=== PATIENT | female | born 1970 | race Caucasian/White ===

== ENCOUNTER 2020-08-22 12:52 | Outpatient (REF) | payer OTHER, SELFPAY ==
--- NOTE | 2020-08-22 | US_ITS ---
EXAMINATION: RIGHT and LEFT LOWER EXTREMITY VENOUS ULTRASOUND (Reflux Exam) CLINICAL INDICATION: leg pain and varicose veins. COMPARISON: None. TECHNIQUE: Color flow triplex imaging and compression Doppler was performed to evaluate both the deep and the superficial systems bilaterally. To evaluate the superficial system, the examination was performed in the upright position. Color-flow Doppler ultrasound and compression ultrasound were utilized. In addition, maneuvers were utilized to demonstrate reflux. FINDINGS: 1. DEEP VENOUS ULTRASOUND OF THE RIGHT LOWER EXTREMITY: Respiratory variation, normal compression and augmented flow are noted in the right common femoral vein as well as the right popliteal vein and there is no evidence of deep venous thrombosis at these locations. There is no evidence of reflux in the deep system in either the common femoral vein or the popliteal vein. There is no evidence of a Priest's cyst. 2. SUPERFICIAL ULTRASOUND WITH DOPPLER OF RIGHT LOWER EXTREMITY: The right great saphenous vein at the saphenofemoral junction measures 7 mm, at the mid thigh 3 mm, xviof-emw-kotr 3 mm, kzswz-npx-kqiu 3 mm, at mid calf 2 mm and at the ankle measures 1 mm. There is right greater saphenous vein reflux. There is 1.6 seconds reflux in the proximal thigh, 3.4 seconds reflux in the mid thigh and 3.4 seconds reflux in the ankle. There is a medial accessory greater saphenous vein that measures 3 mm and does not demonstrate reflux. The right small saphenous vein measures 1-2 mm and shows no reflux. There is a varicosity in the mid thigh that measures 3 mm and demonstrates 3.3 seconds reflux. There is a varicosity in the anterior mid calf that measures 3 mm and demonstrates 1.5 second reflux. 3. DEEP VENOUS ULTRASOUND OF THE LEFT LOWER EXTREMITY: Respiratory variation, normal compression and augmented flow are noted in the left common femoral vein as well as the left popliteal vein and there is no evidence of deep venous thrombosis at these locations. There is no evidence of reflux in the deep system in either the common femoral vein or the popliteal vein. . There is no evidence of a Priest's cyst. 4. SUPERFICIAL ULTRASOUND WITH DOPPLER OF LEFT LOWER EXTREMITY: Left great saphenous vein at the saphenofemoral junction measures 6 mm, at the mid thigh to mm, xueqg-lhb-mipd 3 mm, kayzx-ahl-rdtz 2 mm, at mid calf 1 mm and at the ankle measures 1 mm. There is no reflux demonstrated in the left great saphenous vein. There is a accessory lateral greater saphenous vein that measures 4 mm and does not demonstrate reflux. The left small saphenous vein measures 9 mm at the saphenofemoral popliteal junction. The remainder of the left small saphenous vein measures 3 mm and shows no reflux. There is a inspector plating in the mid calf that measures 2 mm and does not demonstrate reflux. IMPRESSION: 1. No evidence of reflux or thrombus in the common femoral veins or popliteal veins bilaterally. 2. Right greater saphenous vein reflux and reflux and varicosities in the mid thigh and anterior mid calf. No left saphenous vein reflux is seen. The left small saphenous vein is dilated at the saphenofemoral popliteal junction measuring 9 mm but does not demonstrate reflux.
== END 2020-08-22 12:53 | disposition home or self-care (01) ==
LOC: HO.US 12:52
PROVIDERS: PCP Internal Medicine; Visit Provider Surgery Vascular Surgery
DX: I83.12 Varicose veins of left lower extremity with inflammation (principal)
CPT/HCPCS: 93970

== ENCOUNTER → 2020-08-29 10:15 | Outpatient (BNVA) | payer OTHER, SELFPAY | PROVIDERS: PCP Internal Medicine; Visit Provider Surgery Vascular Surgery | DX: I83.12 Varicose veins of left lower extremity with inflammation (principal) | CPT/HCPCS: 99213 ==

== ENCOUNTER 2020-11-28 09:44 | Outpatient (REF) | payer OTHER, SELFPAY ==
[2020-11-28 12:09] LABS: Alanine Aminotransferase 21 U/L (0-31); Anion Gap 10 (12-20); Aspartate Amino Transferase 17 U/L (5-31); Blood Urea Nitrogen 18 mg/dL (9-16); Calcium 8.8 mg/dL (8.4-10.2); Carbon Dioxide 30 mmol/L (22-29); Chloride 107 mmol/L (96-108); Cholesterol 166 mg/dL; Estimated Glomerular Filt Rate > 60; Glucose Fasting 106 mg/dL (60-99); HDL Cholesterol 50 mg/dL; LDL Cholesterol Calculated 101 mg/dl; Potassium 4.3 mmol/l (3.3-5.1); Sodium 143 mmol/L (135-145); Triglycerides 75 mg/dL
== END 2020-11-28 09:45 | disposition home or self-care (01) ==
LOC: HO.HMGCLDS 09:44
PROVIDERS: PCP Internal Medicine; Visit Provider Internal Medicine
DX: I10 Essential (primary) hypertension (principal); E78.00 Pure hypercholesterolemia, unspecified
CPT/HCPCS: 36415; 80048; 80061; 84450; 84460

== ENCOUNTER 2021-08-16 08:46 | Outpatient (REF) | payer OTHER, SELFPAY ==
--- NOTE | 2021-08-16 08:56 | EEG_ITS ---
Bilateral tibial and peroneal motor studies were performed. Bilateral sural and superficial peroneal studies were performed. Tibial H reflexes were obtained and paraspinal muscles were tested with a needle. IMPRESSION: 1. Mild axonal sensory motor polyneuropathy. 2. Bilateral lower lumbar radiculopathy. MD JOSE Avendaño/NORBERTO / [id number]
== END 2021-08-16 08:47 | disposition home or self-care (01) ==
LOC: HO.NEURO 08:46
PROVIDERS: Visit Provider Internal Medicine
DX: R20.2 Paresthesia of skin (principal); M79.609 Pain in unspecified limb
CPT/HCPCS: 95886; 95911

== ENCOUNTER 2021-08-27 09:51 | Outpatient (REF) | payer OTHER, SELFPAY ==
[2021-08-27 10:56] LABS: Anion Gap 11 (12-20); Blood Urea Nitrogen 19 mg/dL (9-16); Calcium 8.9 mg/dL (8.4-10.2); Carbon Dioxide 30 mmol/L (22-29); Chloride 106 mmol/L (96-108); Estimated Glomerular Filt Rate 55; Glucose Random 94 mg/dL (60-115); Potassium 3.7 mmol/L (3.3-5.1); Sodium 143 mmol/L (135-145)
[2021-08-27 11:23] LABS: Vitamin B12 312 pg/mL (200-900)
[2021-08-28 08:36] LABS: Lyme Abs Screen <0.90 index
[2021-08-29 21:16] LABS: IgA 93 mg/dL (47-310); IgG 1232 mg/dL (600-1640); IgM 85 mg/dL (50-300)
== END 2021-08-27 09:52 | disposition home or self-care (01) ==
LOC: HO.LAB 09:51
PROVIDERS: PCP Internal Medicine; Visit Provider Psychiatry & Neurology Neurology
DX: G62.9 Polyneuropathy, unspecified (principal)
CPT/HCPCS: 36415; 80048; 82607; 82784; 86334; 86617; 86618

== ENCOUNTER 2021-12-19 14:00 | Outpatient (REF) | payer OTHER, SELFPAY ==
--- NOTE | ~2021-12-19 | XR_ITS ---
EXAMINATION: XR LEFT HIP WITH AP PELVIS CLINICAL INFORMATION: Left thigh pain. COMPARISON: None. TECHNIQUE: AP and frog-leg lateral views of the left hip and an AP view of the pelvis. FINDINGS: Enthesopathic spurring is present at the bilateral greater trochanters, left greater than right, as well as the left anterior superior iliac spine. No fracture or malalignment. Bones are osteopenic. Left hip is normal in appearance. Joint space is normal. Phleboliths are present in the central pelvis. Facet arthropathy is present at L5-S1. SI joints are normal. XR/XR hip LT w PEL1V IMPRESSION: No acute osseous or soft tissue abnormalities. Enthesopathic spurring at the left greater trochanter.
== END 2021-12-19 14:01 | disposition home or self-care (01) ==
LOC: HO.HMGCX 14:00
PROVIDERS: PCP Internal Medicine; Visit Provider Internal Medicine
DX: M79.652 Pain in left thigh (principal); R20.2 Paresthesia of skin
CPT/HCPCS: 73502

== ENCOUNTER → 2022-01-18 08:48 | Outpatient (BNVA) | payer OTHER, SELFPAY | PROVIDERS: PCP Internal Medicine; Visit Provider Physician Assistant | DX: M54.16 Radiculopathy, lumbar region (principal) | CPT/HCPCS: 99202 ==

== ENCOUNTER → 2022-01-23 09:57 | Outpatient (BNVA) | payer OTHER, SELFPAY | PROVIDERS: PCP Internal Medicine; Visit Provider Nurse Practitioner Family | DX: M47.27 Other spondylosis with radiculopathy, lumbosacral region (principal) | CPT/HCPCS: 99202 ==

== ENCOUNTER 2022-10-24 07:28 | Outpatient (REF) | payer OTHER, SELFPAY ==
--- NOTE | ~2022-10-24 | MM_ITS ---
EXAMINATION: MM SCREENING DIGITAL BREAST TOMOSYNTHESIS, BILATERAL CLINICAL INFORMATION: Screening. Asymptomatic. The lifetime risk of breast cancer based on the Tyrer-Cuzick Model is 9.9%. COMPARISON: Mammography: March 15, 2019 and studies dating back to August 13, 2011 TECHNIQUE: Digital breast tomosynthesis is performed in both the craniocaudal and mediolateral oblique views along with computer-aided detection (CAD). Synthesized 2D images are generated from the tomosynthesis. FINDINGS: There are scattered areas of fibroglandular density (ACR BI-RADS breast composition Category b). There are no significant masses, abnormal calcifications, or other abnormalities. MM/MM tomosynthesis screening BI IMPRESSION: No significant changes from prior exam. ASSESSMENT: BI-RADS 1: Negative RECOMMENDATION: Routine annual mammography screening. This patient's information was entered into a reminder system with a target due date for their next mammogram.
== END 2022-10-24 07:29 | disposition home or self-care (01) ==
LOC: HO.MAMMO 07:28
PROVIDERS: Visit Provider Internal Medicine
DX: Z12.31 Encounter for screening mammogram for malignant neoplasm of breast (principal)
CPT/HCPCS: 77063; 77067

== ENCOUNTER 2022-12-20 13:04 | Outpatient (AMB) | payer OTHER, SELFPAY ==
--- NOTE | 2022-12-20 13:12 | MHC.PC.OV ---
Vital Signs 12/20/22 13:13 Height 5 ft 3 in Weight 232 lb BMI 41.1 BP 126/74 Blood Pressure Location Lt brachial Position Sitting Pulse 63 Pulse Source Pulse Oximeter Pulse Oximetry (%) 100 Oxygen Delivery Method Room Air Intake Visit Reasons: Followup meds Intake Note: Pt is here today to f/u meds Allergies hydrochlorothiazide Allergy (Unknown, Verified 05/06/23 11:03) shortness of breath/ palpitation Medication List - Last Reconciled 12/20/22 by Lisa Dalton MD bumetanide 1 mg PO QAM cholecalciferol (vitamin D3) 25 mcg PO DAILY diphenhydramine-acetaminophen 25-500 mg (Tylenol PM Extra Strength) 1 tab PO BEDTIME PRN flu vacc [id number] 6mos up(PF) mL IM fluticasone propionate 50 mcg/actuation (Flonase Allergy Relief) 1 spray intranasal DAILY lisinopril 40 mg PO DAILY loratadine (Claritin) 10 mg PO DAILY magnesium 250 mg PO DAILY methocarbamol 750 mg PO Q8H PRN nabumetone 500 mg PO BID PRN omeprazole 40 mg PO DAILY pregabalin 75 mg PO BID propranolol ER 120 mg PO DAILY sertraline 75 mg (1.5 x 50 mg) PO DAILY Tobacco use date assessed: 12/20/22 HPI Followup meds HPI Details 52 year old lady with history of hypertension, dyslipidemia, GERD, generalized anxiety disorder, migraine, varicose veins of left lower extremity? seen by Dr. Gallo, with chronic low back pain and presence of grade 1 anterolisthesis at L4-L5 and mild degenerative changes with no nerve root impingement as noted on MRI lumbar spine, here today for follow-up. She has been seen by [facility] ?? ? Patient still complaining of intermittent episodes of aching/burning pain in left lower extremity accompanied by numbness and tingling in the said area, , not getting much improvement now from nabumetone or gabapentin, the latter she is unable to tolerate higher doses.? Had an abnormal EMG done by Dr. Marcano .? Patient would like to be referred for 2nd opinion to [facility] neurology with regards to her left leg paresthesia and pain. She was also seen by Dr Crews, started on Pregabalin , but takes it only at bedtime , and referred to Vascular surgeon , Dr Iverson at [facility] 12/17/22 , who ordered a venous [facility] Medical History Chronic low back pain Lumbar radiculopathy Enthesopathy of hip region Pain in left thigh Varicose veins of left lower extremity with pain Migraine Generalized anxiety disorder GERD (gastroesophageal reflux disease) Dyslipidemia Essential hypertension Paresthesia and pain of left extremity Surgical History Hx of colonoscopy Hx of cholecystectomy Hx of knee surgery H/O wrist surgery History of hysterectomy Family History Father Diabetes Mother Parkinson disease Daughter No problems noted. Brother No problems noted. Sister No problems noted. Social History Housing: House Patient Tobacco Use Status: Never used Tobacco e-Cigarette/Vaping Use: Never Used service: No Current occupational status: employed Cognitive needs: No Hearing needs: No Vision needs: No Questionnaire PHQ-9 Over the last 2 weeks, how often have you been bothered by any of the following problems? 1. Little interest or pleasure in doing things: not at all 2. Feeling down, depressed, or hopeless: not at all 3. Trouble falling or staying asleep, or sleeping too much: not at all 4. Feeling tired or having little energy: not at all 5. Poor appetite or overeating: not at all 6. Feeling bad about yourself - or that you are a failure or have let yourself or your family down: not at all 7. Trouble concentrating on things, such as reading the newspaper or watching television: not at all 8. Moving or speaking so slowly that other people could have noticed. Or the opposite - being so fidgety or restless that you have been moving around a lot more than usual: not at all 9. Thoughts that you would be better off or of hurting yourself in some way: not at all Total score: 0 Depression Screening Interpretation: Negative 19112 - PHQ-9 Billing: Yes Source: Developed by Drs. Joshua Glass, ShamikaTravon Miller and colleagues, with an educational keesha from [employer]. Thrive Questionnaire Declines Thrive assessment: No Date Thrive assessed: 12/19/21 I am a: Patient What is your living situation today?: I have a steady place to live Within the past 12 months, did the food you bought not last and you didn't have the money to get more?: Never true Within the past 12 months, did you worry whether your food would run out before you got money to buy more?: Never true Do you have trouble paying for medicines?: No Do you have trouble getting transportation to medical appointments?: No Do you have trouble paying your heating and electricity bill?: No Do you have trouble taking care of your child, family member or friend?: No Do you have trouble with day-to-day activities such as bathing, preparing meals, shopping, managing finances, etc.?: No Are you currently unemployed and looking for a job?: No Are you interested in more education?: No ROSA-7 AMB Questionnaire ROSA-7 Date ROSA - 7 assessed: 12/20/22 Feeling nervous, anxious, or on edge: 0 = Not at all Not being able to stop or control worryin = Not at all Worrying too much about different things: 1 = Several days Trouble relaxin = Not at all Being so restless that it is hard to sit still: 0 = Not at all Becoming easily annoyed or irritable: 0 = Not at all Feeling afraid as if something awful might happen: 0 = Not at all Total ROSA-7 score (0-4 normal; 5-9 mild; 10-14 moderate; 15-21 severe): 1 Source: Developed by Drs. Joshua Glass, Shamika Lee, Travon Bacon and colleagues, with an educational keesha from [employer]. ROSA-7 Assessment Billing ROSA-7 Assessment Tool: ROSA-7 Assessment 54477 Review of Systems Const Denies fatigue, Denies fever(s), Denies malaise and Denies weakness Eyes Denies change in vision ENT Denies dizziness, Denies post nasal drip, Denies sinus pain and Denies sore throat Card Denies chest pain, Denies syncope, Denies rapid heart rate, Denies irregular heart rhythm, Denies lightheadedness and Denies dyspnea Resp Denies chest congestion, Denies cough and Denies dyspnea GI Denies abdominal pain, Denies melena, Denies change in bowel habits, Denies heartburn and Denies nausea Reports no additional complaints Musc Reports no additional complaints, Reports as per HPI and Reports tingling Skin/Breast Denies lesions and Denies rash Neuro Reports as per HPI, Reports burning sensations (left leg), Denies dizziness, Denies syncope, Denies focal weakness, Denies restless legs, Denies seizure-like activity, Denies Sensory deficit (Neuro), Reports tingling, Reports paresthesias and Denies weakness Psych Reports no additional complaints Endo Denies fatigue Goyo/Lymph Reports no additional complaints Aller/Immun Reports no additional complaints Physical exam (Primary Care) Vital Signs: Last Vital Signs Pulse 63 12/20/22 13:13 BP 126/74 12/20/22 13:13 Pulse Ox 100 12/20/22 13:13 Oxygen Delivery Method Room Air 12/20/22 13:13 BMI result Body Mass Index 41.1 BMI Assessment/Plan discussion: High BMI High, discussed plan: lifestyle, weight reduction, dietary and physical activity Tobacco/Smoking Status: Tobacco use Status Tobacco use date assessed 12/20/22 12/20/22 13:14 Patient Tobacco Use Status Never used Tobacco 12/20/22 13:14 e-Cigarette/Vaping Use Never Used 12/20/22 13:14 PHQ-9: PHQ-9 Score PHQ-9: Total score 0 02/04/23 08:53 Depression Screening Interpretation: Negative Thrive Assessment: Date of Thrive Assessment Date Thrive assessed 12/19/21 12/20/22 13:14 Const General: comfortable, no acute distress and alert Nutritional Appearance: obese morbidly obese Orientation/consciousness: patient oriented x3 HENMT General nose exam: Normal external nose present and No nasal discharge present Face and sinus: Yes face symmetric Eyes General: appearance normal, both eyes and all related structures Neck Neck: Yes normal visual inspection, Yes full ROM, Yes no lymphadenopathy and Yes supple Thyroid: Thyroid normal Resp Effort & Inspection: normal respiratory effort and able to speak in complete sentences Auscultation: clear to auscultation bilaterally Cardio Other: S1-S2 present regular rate and rhythm GI Palpation (GI): Soft to palpation, nontender, no guarding and no masses Auscultation: normal bowel sounds Back/Spine/Pelvis Thoracic/Lumbar Spine: straight leg raise negative bilaterally and paraspinal muscle tenderness on the left in the lower lumbar Skin General skin exam: no rashes or lesions noted Neuro General: patient oriented x3, gait normal, tone normal, moves all extremities, Normal light touch and pain sensation, no focal motor deficits and CN's II-XI intact bilaterally Sensory Exam: No Sensory deficit (Neuro) Extrem General: Yes full ROM, Yes no joint enlargement, Yes no pedal edema, Yes no calf tenderness and Yes normal gait Psych Appearance: grossly normal and well kempt Mental Status: mental status grossly normal Speech and movement: Normal speech and movement present Affect: normal affect Attitude: cooperative Assessment and Plan Assessment & Plan (1) Paresthesia and pain of left extremity: Code(s): M79.609 - Pain in unspecified limb; R20.2 - Paresthesia of skin Plan: Currently being seen by [facility] see Neurology, was started on pregabalin 75 mg at bedtime by [employer]. Continue nabumetone as needed (2) Essential hypertension: Code(s): I10 - Essential (primary) hypertension Plan: Blood pressure at goal of less than 130/80. Continue with current medication. Reinforced importance of following a low sodium diet, getting regular exercise, and lowering stress levels. Coding Level of Care Code Est Pt Level 3 (75482) Diagnoses Paresthesia and pain of left extremity M79.609; R20.2 Essential hypertension I10 Additional Codes ROSA-7 Assessment Billing - ROSA-7 Assessment Tool: ROSA-7 Assessment 51355 ([id number])
[2022-12-20 13:13] VITALS: BP 126/74; PULSE 63; O2SAT 100; BMI 41.1
== END 2022-12-20 13:50 | disposition home or self-care (01) ==
LOC: HO.HMGC 13:04
PROVIDERS: PCP Internal Medicine; Visit Provider Internal Medicine
DX: M79.609 Pain in unspecified limb (principal); R20.2 Paresthesia of skin; I10 Essential (primary) hypertension
CPT/HCPCS: 99213

== ENCOUNTER 2023-09-11 09:31 | Outpatient (REF) | payer OTHER, SELFPAY ==
[2023-09-11 11:49] LABS: MANUAL DIFF FLAG NO
[2023-09-11 11:58] LABS: Basophils Percent Auto 0.4 % (0-2); Eosinophils Absolute Auto 0.1 X10*3/uL (0.0-0.4); Eosinophils Percent Auto 1.8 % (0-4); Hematocrit 36.9 % (37.0-47.0); Hemoglobin 11.8 g/dl (12.0-16.0); Lymphocytes Absolute Auto 1.4 X10*3/uL (1.2-4.9); Lymphocytes Percent Auto 26.7 % (20-40); Mean Corpuscular Hemoglobin 27.1 pg (27.0-33.0); Mean Corpuscular Volume 84.8 fL (80.0-98.0); Mean Platelet Volume 10.1 fL (9.4-12.3); Monocytes Absolute Auto 0.5 X10*3/uL (0.1-1.2); Monocytes Percent Auto 9.3 % (2-11); Neutrophils Absolute Auto 3.1 x10*3/uL (2.0-8.3); Neutrophils Percent Auto 61.8 % (45-73); Platelet Count 194 X10*3/uL (160-400); Red Blood Count 4.35 X10*6/uL (4.20-5.50); Red Cell Distribution Width 12.2 % (11.0-16.0); White Blood Count 5.1 X10*3/uL (4.8-10.8)
[2023-09-11 12:31] LABS: Alanine Aminotransferase 20 U/L (0-31); Anion Gap 13 (12-20); Aspartate Amino Transferase 20 U/L (5-31); Blood Urea Nitrogen 22 mg/dL (9-16); Calcium 9.8 mg/dL (8.4-10.2); Carbon Dioxide 29 mmol/L (22-29); Chloride 102 mmol/L (96-108); Cholesterol 245 mg/dL (<200); Estimated Glomerular Filt Rate 44; Glucose Fasting 90 mg/dL (60-99); HDL Cholesterol 44 mg/dL (>40); LDL Cholesterol Calculated 178 mg/dL (<100); Potassium 4.9 mmol/L (3.3-5.1); Sodium 139 mmol/L (135-145); Triglycerides 118 mg/dL (<150)
[2023-09-11 12:41] LABS: Folate 4.4 ng/mL (> or = 4.0); Vitamin B12 422 pg/mL (200-900)
[2023-09-11 12:47] LABS: TSH reflex Free T4 2.35 uIU/mL (0.32-4.0); Vitamin D 25-OH Total 47.2 ng/mL (>30)
== END 2023-09-11 09:32 | disposition home or self-care (01) ==
LOC: HO.HMGCLDS 09:31
PROVIDERS: PCP Internal Medicine; Visit Provider Internal Medicine
DX: Z00.01 Encounter for general adult medical examination with abnormal findings (principal); M54.16 Radiculopathy, lumbar region; F41.1 Generalized anxiety disorder; K21.9 Gastro-esophageal reflux disease without esophagitis; E78.5 Hyperlipidemia, unspecified; I10 Essential (primary) hypertension; R20.2 Paresthesia of skin; G43.909 Migraine, unspecified, not intractable, without status migrainosus; E66.9 Obesity, unspecified
CPT/HCPCS: 36415; 80048; 80061; 82306; 82607; 82746; 84443; 84450; 84460; 85025

== ENCOUNTER 2023-10-07 10:50 | Outpatient (AMB) | payer OTHER, SELFPAY ==
[2023-10-07 10:54] VITALS: BP 110/62; PULSE 63; O2SAT 100; BMI 41.3
--- NOTE | 2023-10-07 10:54 | A.OFFPC_ITS ---
Vital Signs 10/07/23 10:54 Height 5 ft 3 in Weight 233 lb 4 oz BMI 41.3 BP 110/62 Blood Pressure Location Lt brachial Position Sitting Pulse 63 Pulse Source Pulse Oximeter Pulse Oximetry (%) 100 Oxygen Delivery Method Room Air Intake Visit Reasons: left leg pain Intake Note: pt is here on going left leg pain that has been for 3 years that started as numbness in her veins in her thigh and now has gotten worse to where she can not bend her leg and is disrupting her day Allergies hydrochlorothiazide Allergy (Unknown, Verified 10/07/23 11:23) shortness of breath/ palpitation Medication List - Last Reconciled 10/07/23 by Lisa Dalton MD bumetanide 1 mg PO QAM cholecalciferol (vitamin D3) 25 mcg PO DAILY fluticasone propionate 50 mcg/actuation (Flonase Allergy Relief) 1 spray intranasal DAILY lisinopril 40 mg PO DAILY loratadine (Claritin) 10 mg PO DAILY magnesium 250 mg PO DAILY methocarbamol 750 mg PO Q8H PRN nabumetone 500 mg PO BID PRN omeprazole 40 mg PO DAILY pregabalin 75 mg PO BEDTIME propranolol ER 120 mg PO DAILY sertraline 75 mg (1.5 x 50 mg) PO DAILY Tobacco use date assessed: 10/07/23 Dental Screening Dental Screen Date: 10/07/23 Did you have a dental visit in the last 12 months?: No Did you have a dental problem in the last 6 months where you did not have access to dental care?: No Was dental information given to patient?: No HPI left leg pain HPI Details 53-year-old lady here today complaining persistent numbness and tingling in left lower extremity. MRI of lumbar spine did not show any significant nerve compression. CT angiogram showed patent vascularity in both lower extremities with no flow-limiting stenosis seen. She has been seen by vascular surgery at [facility] and she has been told that her symptoms are far more consistent with something like neuropathy done either PAD or venous insufficiency, ABIs were normal the ankle at 1 on the right and 1.0 for the l eft. Her venous Doppler duplex showed reflux in the right CPV and GSV, but not much on the left were most of her pain is. Her CTA aorta with bilateral runoff showed no significant arterial stenosis. In a day suggested referral to Neurology again for further evaluation. She has been taking pregabalin which has afforded some relief. She is also here for follow-up on results of recent labs. Which showed mild normocytic normochromic anemia, other salts unremarkable except for elevated LDL cholesterol and decreased GFR as compared to last check. [facility] Medical History (Updated 11/12/23 @ 05:50 by Lisa Dalton MD) Hypercholesterolemia Anemia Chronic low back pain Lumbar radiculopathy Enthesopathy of hip region Pain in left thigh Varicose veins of left lower extremity with pain Migraine Generalized anxiety disorder GERD (gastroesophageal reflux disease) Dyslipidemia Essential hypertension Paresthesia and pain of left extremity Surgical History Hx of colonoscopy Hx of cholecystectomy Hx of knee surgery H/O wrist surgery History of hysterectomy Family History Father Diabetes Mother Parkinson disease Daughter No problems noted. Brother No problems noted. Sister No problems noted. Social History Housing: House Patient Tobacco Use Status: Never used Tobacco e-Cigarette/Vaping Use: Never Used service: No Current occupational status: employed Cognitive needs: No Hearing needs: No Vision needs: No Questionnaire Thrive Questionnaire Date Thrive assessed: 12/19/21 ROSA-7 AMB Questionnaire ROSA-7 Date ROSA - 7 assessed: 12/20/22 Source: Developed by Drs. Joshua Glass, Shamika Lee, Travon Bacon and colleagues, with an educational keesha from [employer]. Review of Systems Const Denies fever(s), Denies malaise and Denies weakness Card Denies chest pain, Denies syncope, Denies rapid heart rate, Denies irregular heart rhythm, Denies lightheadedness and Denies dyspnea Resp Denies chest congestion, Denies cough and Denies dyspnea GI Denies abdominal pain, Denies melena, Denies change in bowel habits, Denies heartburn and Denies nausea Reports no additional complaints Musc Reports as per HPI Skin/Breast Denies lesions and Denies rash Neuro Reports as per HPI, Reports burning sensations (left leg), Denies syncope, Denies focal weakness, Denies restless legs, Denies Sensory deficit (Neuro), Reports paresthesias and Denies weakness Psych Reports no additional complaints Endo Reports no additional complaints Goyo/Lymph Reports no additional complaints Aller/Immun Reports no additional complaints Physical exam (Primary Care) Vital Signs: Last Vital Signs Pulse 63 10/07/23 10:54 BP 110/62 10/07/23 10:54 Pulse Ox 100 10/07/23 10:54 Oxygen Delivery Method Room Air 10/07/23 10:54 BMI result Body Mass Index 41.3 Tobacco/Smoking Status: Tobacco use Status Tobacco use date assessed 10/07/23 10/07/23 11:02 Patient Tobacco Use Status Never used Tobacco 10/07/23 10:54 e-Cigarette/Vaping Use Never Used 10/07/23 10:54 Thrive Assessment: Date of Thrive Assessment Date Thrive assessed 12/19/21 10/07/23 10:54 Const General: comfortable, no acute distress and alert Nutritional Appearance: obese morbidly obese Orientation/consciousness: patient oriented x3 HENMT Face and sinus: Yes face symmetric Neck Neck: Yes normal visual inspection, Yes full ROM, Yes no lymphadenopathy and Yes supple Thyroid: Thyroid normal Resp Effort & Inspection: normal respiratory effort and able to speak in complete sentences Auscultation: clear to auscultation bilaterally Cardio Other: S1-S2 present regular rate and rhythm GI Palpation (GI): Soft to palpation, nontender, no guarding and no masses Auscultation: normal bowel sounds Skin General skin exam: no rashes or lesions noted Neuro General: patient oriented x3, gait normal, tone normal, moves all extremities, Normal light touch and pain sensation, no focal motor deficits and CN's II-XI intact bilaterally Sensory Exam: No Sensory deficit (Neuro) Extrem General: Yes full ROM, Yes no joint enlargement, Yes no pedal edema, Yes no calf tenderness and Yes normal gait Results Reviewed Results Reviewed: Laboratory Tests 09/11/23 09:40 WBC 5.1 Hgb 11.8 L Hct 36.9 L MCV 84.8 MCH 27.1 RDW 12.2 Plt Count 194 Name: Angela Schultz Age/Sex: 53/F : 1970 Unit#: [id number] Attend Dr: Lisa Dalton MD Re09/11/23 Status: DEP REF Location: [facility] Disch: SPEC : [id number] CANDIDO: 09/11/23 STATUS: COMP REQ : [id number] RECD: 09/11/[address]: Lisa Dalton MD COMP: 09/11/23 ENTERED: 09/11/[address]: ORDERED: Met Prof Fast, AST, ALT, Lipid Panel, Vitamin D 25-OH, TSH Rflx Test Result Flag Reference Site Sodium 139 135-145 mmol/L Potassium 4.9 # 3.3-5.1 mmol/L CL 102 96-108 mmol/L CO2 29 22-29 mmol/L Gap 13 12-20 BUN 22 H 9-16 mg/dL Creat 1.28 0.5-1.4 mg/dL EGFR 44 NOTE: For -[place] individuals, multiply the result by 1.210. Chronic Kidney Disease: Estimated GFR < 60 mL/m in/1.73m2 Severe Kidney Disease: Estimated GFR < 15 mL/min/1.73m2 FBS 90 60-99 mg/dL CA 9.8 # 8.4-10.2 mg/dL AST (GOT) 20 5-31 U/L ALT (GPT) 20 0-31 U/L Triglyceride 118 <150 mg/dL Desirable Triglyceride: less than 150 mg/dL Borderline High Triglyceride 150-199 mg/dL High Triglyceride: 200-499 mg/dL Very High Triglyceride: greater than or equal to 5OO mg/dL Cholesterol 245 H <200 mg/dL Desirable Cholesterol: less than 200 mg/dL Borderline High Cholesterol: 200-239 mg/dL High Cholesterol: greater than 239 mg/dL LDL Calculated 178 H <100 mg/dL Desirable LDL: less than 100 mg/dL Near Optimal/Above Optimal LDL: 110-129 mg/dL Borderline High LDL: 130-159 mg/dL High LDL: 160-189 mg/dL Very High LDL: greater than or equal to 190 mg/dL HDL 44 >40 mg/dL Desirable HDL: greater than 40 mg/dL Note: This HDL assay may give artificially low results in patients with liver disease. Vit D 25-OH Tot 47.2 >30 ng/mL Health Based Reference Values* < 20 ng/mL Deficient 20-30 ng/mL Insufficient > 30 ng/mL Sufficient *Holick MF. N Engl J Med. 2007;[id number]:266-280 Care must be taken in interpreting Vitamin D results from different laboratories and methodologies. Published data demonstrated that results from patients undergoing hemodialysis may show a negative bias when tested with various automated 25-OH vitamin D assays when compared to LC-MS/MS. When testing samples from patients whose predominant form of Vitamin D is Vitamin D2, such as patients receiving Vitamin D2 supplementation, results that are subtherapeutic should be confirmed with another method such as LC-MS/MS. TSH 2.35 0.32-4.0 uIU/mL Assessment and Plan Assessment & Plan (1) Anemia: Code(s): D64.9 - Anemia, unspecified Qualifiers: Anemia type: unspecified type Qualified Code(s): D64.9 - Anemia, unspecified Plan: Started on ferrous fumarate 325 mg per tablet to take once a day for the next 3 months. (2) Paresthesia and pain of left extremity: Code(s): M79.609 - Pain in unspecified limb; R20.2 - Paresthesia of skin Plan: Seen already by vascular surgery and had diagnostic testing done which did not show any evidence of PAD or PVD, Continue pregabalin, patient already has been referred to [facility] neurology for further evaluation, awaiting appointment. (3) Hypercholesterolemia: Code(s): E78.00 - Pure hypercholesterolemia, unspecified Plan: Started on rosuvastatin 5 mg per tablet to take 1 tablet every other day, reinforced importance of following a low-cholesterol diet. Will repeat another fasting lipid panel total CK and liver enzymes in 3 month Orders: Orders Lipid Panel 3 Months E78.00 - Pure hypercholesterolemia, unspecified Aspartate Amino Transferase 3 Months E78.00 - Pure hypercholesterolemia, unspecified Alanine Aminotransferase 3 Months E78.00 - Pure hypercholesterolemia, unspecified Creatine Kinase Total 3 Months E78.00 - Pure hypercholesterolemia, unspecified Medications: New ferrous fumarate 324 mg PO DAILY 90 tabs 1RF D64.9 - Anemia, unspecified rosuvastatin 5 mg PO Q2D 45 tabs 1RF 3 months Changed From pregabalin 75 mg PO BEDTIME 30 caps 5RF M79.609 - Pain in unspecified limb, R20.2 - Paresthesia of skin To pregabalin 75 mg PO Q12H 60 caps 5RF M79.609 - Pain in unspecified limb, R20.2 - Paresthesia of skin Discontinued nabumetone Discontinued Reason: Doctor's Order 500 mg PO BID PRN 40 tabs 1RF pain Coding Level of Care Code Est Pt Level 4 (98568) Diagnoses Anemia, unspecified type D64.9 Anemia type: unspecified type Paresthesia and pain of left extremity M79.609; R20.2 Hypercholesterolemia E78.00
== END 2023-10-07 15:21 | disposition home or self-care (01) ==
PROVIDERS: PCP Internal Medicine; Visit Provider Internal Medicine
DX: D64.9 Anemia, unspecified (principal); M79.609 Pain in unspecified limb; R20.2 Paresthesia of skin; E78.00 Pure hypercholesterolemia, unspecified
CPT/HCPCS: 99214

== ENCOUNTER 2023-10-30 07:29 | Outpatient (REF) | payer OTHER, SELFPAY | END 2023-10-30 07:30 | disposition home or self-care (01) | LOC: HO.MAMMO 07:29 | PROVIDERS: PCP Internal Medicine; Visit Provider Internal Medicine | DX: Z12.31 Encounter for screening mammogram for malignant neoplasm of breast (principal) | CPT/HCPCS: 77063; 77067 ==

== ENCOUNTER → 2023-10-30 07:45 | Outpatient (BNV) | payer OTHER, SELFPAY | PROVIDERS: PCP Internal Medicine; Visit Provider Radiology Diagnostic Radiology | DX: Z12.31 Encounter for screening mammogram for malignant neoplasm of breast (principal) | CPT/HCPCS: 77063; 77067 ==

== ENCOUNTER 2024-02-13 09:28 | Outpatient (REF) | payer OTHER, SELFPAY ==
[2024-02-13 11:12] LABS: Alanine Aminotransferase 14 U/L (0-31); Aspartate Amino Transferase 16 U/L (5-31); Cholesterol 172 mg/dL (<200); HDL Cholesterol 43 mg/dL (>40); LDL Cholesterol Calculated 112 mg/dL (<100); Triglycerides 85 mg/dL (<150)
== END 2024-02-13 09:29 | disposition home or self-care (01) ==
LOC: HO.HMGCLDS 09:28
PROVIDERS: PCP Internal Medicine; Visit Provider Internal Medicine
DX: E78.00 Pure hypercholesterolemia, unspecified (principal)
CPT/HCPCS: 36415; 80061; 82550; 84450; 84460

== ENCOUNTER 2024-02-18 08:10 | Outpatient (AMB) | payer OTHER, SELFPAY ==
[2024-02-18 08:18] VITALS: BP 100/72; PULSE 64; O2SAT 100; BMI 42.0
--- NOTE | 2024-02-18 08:18 | MHC.PC.OV ---
Vital Signs 02/18/24 08:18 Height 5 ft 3 in Weight 237 lb BMI 42.0 BP 100/72 Blood Pressure Location Rt brachial Position Sitting Pulse 64 Pulse Source Pulse Oximeter Pulse Oximetry (%) 100 Oxygen Delivery Method Room Air Intake Visit Reasons: Annual PE Intake Note: Pt is here today for her PE: Last mammogram 10/30/23, colonoscopy 04/06/19: Hx of total hysterectomy Allergies hydrochlorothiazide Allergy (Unknown, Verified 02/18/24 08:46) shortness of breath/ palpitation Medication List - Last Reconciled 02/18/24 by Lisa Dalton MD bumetanide 1 mg PO QAM cholecalciferol (vitamin D3) 25 mcg PO DAILY ferrous fumarate 324 mg PO DAILY fluticasone propionate 50 mcg/actuation (Flonase Allergy Relief) 1 spray intranasal DAILY lisinopril 40 mg PO DAILY loratadine (Claritin) 10 mg PO DAILY magnesium 250 mg PO DAILY omeprazole 40 mg PO DAILY pregabalin 75 mg PO Q12H propranolol ER 120 mg PO DAILY rosuvastatin 5 mg PO Q2D 3 months sertraline 75 mg (1.5 x 50 mg) PO DAILY Tobacco use date assessed: 02/18/24 Dental Screening Dental Screen Date: 02/18/24 Did you have a dental visit in the last 12 months?: No Was dental information given to patient?: Patient declined HPI Annual PE HPI Details 53-year-old lady here today for her physical exam. She has hypertension, currently stable controlled on present treatment. Has hyperlipidemia , started on rosuvastatin 5 mg taken every other day on last visit with recent fasting lipids now within normal limits. She had hysterectomy and salpingectomy with right oophorectomy in 2011 due to endometriosis and ovarian cyst. She is up-to-date with her screening mammogram. Had a screening colonoscopy done by Dr. Gomez in 2019 with removal of a hyperplastic polyp. She is up-to-date with all her vaccinations but does not want to get the Shingrix vaccine at present time. Has numbness and burning pain in both legs, states that she feels like she is walking on glass , and has been having neck tightness and finger twitching, started insidiously in 2019 and progressively getting worse. She has also been having headaches and disturbed sleep due to the pain . She had normal EMG twice in 2020 in 2022. She has been tried on gabapentin, but had to stop taking the medication as it was too sedating. She is currently being seen at [facility] neurology, sees Dr. Tirado who started her on pregabalin 75 mg 1 tablet twice a day with some improvement noted. [facility] Medical History (Updated 02/19/24 @ 00:21 by Lisa Dalton MD) Peripheral neuropathy Depression Anemia Lumbar radiculopathy Varicose veins of left lower extremity with pain Migraine GERD (gastroesophageal reflux disease) Dyslipidemia Essential hypertension Paresthesia and pain of left extremity Surgical History Hx of colonoscopy Hx of cholecystectomy Hx of knee surgery H/O wrist surgery History of hysterectomy Family History Father Diabetes Mother Parkinson disease Daughter No problems noted. Brother No problems noted. Sister No problems noted. Social History Housing: House Patient Tobacco Use Status: Never used Tobacco e-Cigarette/Vaping Use: Never Used service: No Current occupational status: employed Cognitive needs: No Hearing needs: No Vision needs: Yes Female Reproductive History Menstrual Menopause type: surgical Questionnaire PHQ-9 Over the last 2 weeks, how often have you been bothered by any of the following problems? 1. Little interest or pleasure in doing things: more than half the days 2. Feeling down, depressed, or hopeless: not at all 3. Trouble falling or staying asleep, or sleeping too much: not at all 4. Feeling tired or having little energy: more than half the days 5. Poor appetite or overeating: not at all 6. Feeling bad about yourself - or that you are a failure or have let yourself or your family down: not at all 7. Trouble concentrating on things, such as reading the newspaper or watching television: not at all 8. Moving or speaking so slowly that other people could have noticed. Or the opposite - being so fidgety or restless that you have been moving around a lot more than usual: several days 9. Thoughts that you would be better off or of hurting yourself in some way: not at all Total score: 5 Depression Screening Interpretation: Positive Depression Screening Follow-up: Existing condition and In treatment Depression Screening Done: Yes 40368 - PHQ-9 Billing: Yes Source: Developed by Drs. Joshua Glass, Shamika Lee, Travon Bacon and colleagues, with an educational keesha from [email or web address]. Thrive Questionnaire Date Thrive assessed: 02/18/24 I am a: Patient What is your living situation today?: I have a steady place to live Within the past 12 months, did the food you bought not last and you didn't have the money to get more?: Never true Within the past 12 months, did you worry whether your food would run out before you got money to buy more?: Never true Do you have trouble paying for medicines?: No Do you have trouble getting transportation to medical appointments?: No Do you have trouble paying your heating and electricity bill?: No Do you have trouble taking care of your child, family member or friend?: No Do you have trouble with day-to-day activities such as bathing, preparing meals, shopping, managing finances, etc.?: No Are you currently unemployed and looking for a job?: No Are you interested in more education?: No THRIVE Score: 0 AUDIT C Alcohol Use Questionnaire (AUDIT-C) 1. How often do you have a drink containing alcohol?: Never Total Score: 0 ROSA-7 AMB Questionnaire ROSA-7 Date ROSA - 7 assessed: 02/18/24 Feeling nervous, anxious, or on edge: 1 = Several days Not being able to stop or control worryin = Not at all Worrying too much about different things: 0 = Not at all Trouble relaxin = Several days Being so restless that it is hard to sit still: 0 = Not at all Becoming easily annoyed or irritable: 1 = Several days Feeling afraid as if something awful might happen: 0 = Not at all Total ROSA-7 score (0-4 normal; 5-9 mild; 10-14 moderate; 15-21 severe): 3 Source: Developed by Drs. Joshua Glass, Shamika Lee, Travon Bacon and colleagues, with an educational keesha from [email or web address]. ROSA-7 Assessment Billing ROSA-7 Assessment Tool: ROSA-7 Assessment 25139 Review of Systems Const Denies fever(s) and Denies weakness Eyes Denies change in vision ENT Denies dizziness Card Denies chest pain, Denies rapid heart rate, Denies irregular heart rhythm, Denies lightheadedness and Denies dyspnea Resp Denies chest congestion, Denies cough and Denies dyspnea GI Denies abdominal pain, Denies melena, Denies change in bowel habits, Denies heartburn and Denies nausea Reports no additional complaints Musc Reports as per HPI and Denies abnormal gait Skin/Breast Denies lesions and Denies rash Neuro Reports as per HPI, Denies abnormal gait, Reports burning sensations (in lower extremities ), Denies dizziness, Denies focal weakness, Denies restless legs, Denies seizure-like activity, Reports Sensory deficit (Neuro) (in toes of both feet), Denies tremor(s) and Denies weakness Psych Reports no additional complaints Endo Reports no additional complaints Goyo/Lymph Reports no additional complaints Aller/Immun Reports no additional complaints Physical exam (Primary Care) Vital Signs: Last Vital Signs Pulse 64 02/18/24 08:18 BP 100/72 02/18/24 08:18 Pulse Ox 100 02/18/24 08:18 Oxygen Delivery Method Room Air 02/18/24 08:18 BMI result Body Mass Index 42.0 Tobacco/Smoking Status: Tobacco use Status Tobacco use date assessed 02/18/24 02/18/24 08:21 Patient Tobacco Use Status Never used Tobacco 02/18/24 08:21 e-Cigarette/Vaping Use Never Used 02/18/24 08:21 PHQ-9: PHQ-9 Score PHQ-9: Total score 5 02/18/24 23:49 Depression Screening Interpretation: Positive Depression Screening Follow-up: Existing condition and In treatment Thrive Assessment: Date of Thrive Assessment Date Thrive assessed 02/18/24 02/18/24 08:26 Const General: no acute distress and alert Nutritional Appearance: obese morbidly obese Orientation/consciousness: patient oriented x3 HENMT Face and sinus: Yes face symmetric Eyes General: appearance normal, both eyes and all related structures Neck Neck: Yes normal visual inspection, Yes full ROM, Yes no lymphadenopathy and Yes supple Thyroid: Thyroid normal Chest Breast/axilla palpation: normal palpation of the breasts Resp Effort & Inspection: normal respiratory effort Auscultation: clear to auscultation bilaterally Cardio Other: S1-S2 present regular rate and rhythm GI Palpation (GI): Soft to palpation, nontender, no guarding and no masses Auscultation: normal bowel sounds General: Yes no CVA tenderness and Yes deferred Back/Spine/Pelvis Back: no CVA tenderness and No back tenderness Skin General skin exam: no rashes or lesions noted Neuro General: patient oriented x3, tone normal, moves all extremities, no focal motor deficits and CN's II-XI intact bilaterally Sensory Exam: Sensory deficit (Neuro) (in toes of both feet) Extrem General: Yes full ROM, Yes no joint enlargement, Yes no pedal edema, Yes no calf tenderness and Yes normal gait Psych Appearance: grossly normal and well kempt Mental Status: mental status grossly normal Speech and movement: Normal speech and movement present Affect: normal affect Results Reviewed Results Reviewed: Laboratory Tests 09/11/23 09:40 Fasting Glucose 90 TSH 2.35 Name: Angela Schultz Age/Sex: 53/F : 1970 Unit#: [id number] Attend Dr: Lisa Dalton MD Re02/13/24 Status: DEP REF Location: [facility] Disch: SPEC : [id number] CANDIDO: 02/13/24 STATUS: COMP REQ : [id number] RECD: 02/13/24-[address]: Lisa Dalton MD COMP: 02/13/24 ENTERED: 02/13/24-[address]: ORDERED: AST, ALT, CK Total, Lipid Panel Test Result Flag Reference AST (GOT) 16 5-31 U/L ALT (GPT) 14 0-31 U/L CK Total 106 26-140 U/L Triglyceride 85 <150 mg/dL Desirable Triglyceride: less than 150 mg/dL Borderline High Triglyceride 150-199 mg/dL High Triglyceride: 200-499 mg/dL Very High Triglyceride: greater than or equal to 5OO mg/dL Cholesterol 172 <200 mg/dL Desirable Cholesterol: less than 200 mg/dL Borderline High Cholesterol: 200-239 mg/dL High Cholesterol: greater than 239 mg/dL LDL Calculated 112 H <100 mg/dL Desirable LDL: less than 100 mg/dL Near Optimal/Above Optimal LDL: 110-129 mg/dL Borderline High LDL: 130-159 mg/dL High LDL: 160-189 mg/dL Very High LDL: greater than or equal to 190 mg/dL HDL 43 >40 mg/dL Desirable HDL: greater than 40 mg/dL Note: This HDL assay may give artificially low results in patients with liver disease. Assessment and Plan Assessment & Plan (1) Annual visit for general adult medical examination with abnormal findings: Code(s): Z00.01 - Encounter for general adult medical examination with abnormal findings Plan: Reviewed recent fasting labs patient.. Recommended dental visit every 6 months and regular eye exams, at least every 2 years. Take adequate calcium in diet and vitamin-D 3 at 2000 IU per cap once a day. Weight loss strongly recommended. Currently up-to-date with her yearly mammogram. Up-to-date with her screening colonoscopy, due again in 2028 . Up-to-date with her COVID vaccination including booster, gets yearly flu shots and is up-to-date with her Tdap. Has not yet had her shingles vaccine (2) Peripheral neuropathy: Code(s): G62.9 - Polyneuropathy, unspecified Qualifiers: Peripheral neuropathy type: polyneuropathy, unspecified Qualified Code(s): G62.9 - Polyneuropathy, unspecified Plan: Currently followed by [facility] neurology, and was started on pregabalin and referred for physical therapy. Will check Lyme titer, Ehrlichia anaplasma antibody panel (3) Essential hypertension: Code(s): I10 - Essential (primary) hypertension Plan: Blood pressure at goal of less than 130/80. Continue with current medication. Reinforced importance of following a low sodium diet, getting regular exercise, and lowering stress levels. Basic metabolic panel ordered (4) Dyslipidemia: Code(s): E78.5 - Hyperlipidemia, unspecified Plan: Reviewed recent fasting lipid profile with patient with improvement in her lipid panel compared to last check . Continue with rosuvastatin 5 mg every other day , in addition to adherence to low-cholesterol diet and regular exercise, at least 30 minutes 3 to 4 times a week. Advised patient to make healthy food choices, eat more fruits, vegetables, whole grains, wild caught fish and low-fat dairy. Limit amount of meat and fried or fatty food products, as well as processed foods and fast foods. Follow-up scheduled with repeat fasting lipid panel in 6 months. (5) Depression: Code(s): F32.A - Depression, unspecified Qualifiers: Depression Type: major depressive disorder Major depression recurrence: recurrent Active/Remission status: remission status unspecified Qualified Code(s): F33.9 - Major depressive disorder, recurrent, unspecified Plan: Continue with sertraline 75 mg daily Orders: Orders Lyme IgG/IgM w/reflex to WB 02/18/24 M76.899 - Other specified enthesopathies of unspecified lower limb, excluding foot, M79.609 - Pain in unspecified limb, R20.2 - Paresthesia of skin, R53.83 - Other fatigue Basic Metabolic Panel Fasting 02/18/24 E89.40 - Asymptomatic postprocedural ovarian failure, I10 - Essential (primary) hypertension Vitamin D 25-OH Total 02/18/24 E89.40 - Asymptomatic postprocedural ovarian failure Ehrlichia Anaplasma Ab Panel 02/18/24 M76.899 - Other specified enthesopathies of unspecified lower limb, excluding foot, M79.609 - Pain in unspecified limb, R20.2 - Paresthesia of skin, R53.83 - Other fatigue Coding Level of Care Code Est Pt Prev Care 40-64y(07125) Diagnoses Annual visit for general adult medical examination with abnormal findings Z00.01 Peripheral polyneuropathy G62.9 Peripheral neuropathy type: polyneuropathy, unspecified Essential hypertension I10 Dyslipidemia E78.5 Recurrent major depressive disorder, remission status unspecified F33.9 Depression Type: major depressive disorder Major depression recurrence: recurrent Active/Remission status: remission status unspecified Additional Codes ROSA-7 Assessment Billing - ROSA-7 Assessment Tool: ROSA-7 Assessment 88673 ([id number])
== END 2024-02-18 08:56 | disposition home or self-care (01) ==
PROVIDERS: PCP Internal Medicine; Visit Provider Internal Medicine
DX: Z00.00 Encounter for general adult medical examination without abnormal findings (principal); F33.9 Major depressive disorder, recurrent, unspecified; G62.9 Polyneuropathy, unspecified; I10 Essential (primary) hypertension; E78.5 Hyperlipidemia, unspecified
CPT/HCPCS: 99396

== ENCOUNTER 2024-02-18 08:58 | Outpatient (REF) | payer OTHER, SELFPAY ==
[2024-02-18 11:09] LABS: Anion Gap 13 (12-20); Blood Urea Nitrogen 47 mg/dL (9-16); Calcium 9.9 mg/dL (8.4-10.2); Carbon Dioxide 29 mmol/L (22-29); Chloride 102 mmol/L (96-108); Estimated Glomerular Filt Rate 26; Glucose Fasting 97 mg/dL (60-99); Potassium 4.9 mmol/L (3.3-5.1); Sodium 139 mmol/L (135-145)
[2024-02-18 11:15] LABS: Vitamin D 25-OH Total 53.1 ng/mL (>30)
[2024-02-19 19:48] LABS: Lyme Abs Screen <0.90 index
[2024-02-23 12:39] LABS: A. Phagocytophilum Ab IgG <1:64 (<1:64); A. Phagocytophilum Ab IgM <1:20 (<1:20); E. Chaffeensis Ab IgG <1:64 (<1:64); E. Chaffeensis Ab IgM <1:20 (<1:20)
== END 2024-02-18 08:59 | disposition home or self-care (01) ==
LOC: HO.HMGCLDS 08:58
PROVIDERS: PCP Internal Medicine; Visit Provider Internal Medicine
DX: M79.609 Pain in unspecified limb (principal); I10 Essential (primary) hypertension; R20.2 Paresthesia of skin; M76.899 Other specified enthesopathies of unspecified lower limb, excluding foot; R53.83 Other fatigue; E89.40 Asymptomatic postprocedural ovarian failure
CPT/HCPCS: 36415; 80048; 82306; 86617; 86618; 86666

== ENCOUNTER 2024-02-20 09:54 | Outpatient (AMB) | payer OTHER, SELFPAY ==
[2024-02-20 09:56] VITALS: BP 100/62; PULSE 50; O2SAT 92; BMI 41.8
--- NOTE | 2024-02-20 09:56 | HO.NEPHOV_ITS ---
Vital Signs 02/20/24 09:56 Height 5 ft 3 in Weight 236 lb 4 oz BMI 41.8 BP 100/62 Blood Pressure Location Rt brachial Position Sitting Pulse 50 Pulse Source Pulse Oximeter Pulse Oximetry (%) 92 Oxygen Delivery Method Room Air Intake Visit Reasons: Progressive decline in renal function/ Confirmed [employer] Required: No Accompanied by: Daughter Allergies hydrochlorothiazide Allergy (Unknown, Verified 02/20/24 10:00) shortness of breath/ palpitation HPI Comments Details: I had the privilege of seeing Angela in consultation for her recent FADY. She has hypertension and has been on ACEI and HCTZ. She has dyslipidemia and is on statins. She has been having persistent numbness and tingling in left lower extremity for which she has undergone MRI of lumbar spine, CT angiogram of lower extremities as well as EMG. Her CTA aorta showed no significant arterial stenosis. She is not a diabetic. She has no edema, uncontrolled BP, hematuria, SOB, PND, orthopnea, orthostasis, epistaxis, photosensitivity, new skin rashes, new bone/back pain, excess NSAID intake. She has had no recent antibiotics, sore throat or sinusitis. She denied any H/O CAD, CVA, CHF, BRIANA. Her BP has been running low normal. Recently her serum creatinine went up to 1.98 [facility] Medical History (Updated 02/20/24 @ 10:36 by Patrick Paz MD) Peripheral neuropathy Depression Anemia Lumbar radiculopathy Varicose veins of left lower extremity with pain Migraine GERD (gastroesophageal reflux disease) Dyslipidemia Essential hypertension Paresthesia and pain of left extremity Surgical History Hx of colonoscopy Hx of cholecystectomy Hx of knee surgery H/O wrist surgery History of hysterectomy Family History Father Diabetes Mother Parkinson disease Daughter No problems noted. Brother No problems noted. Sister No problems noted. Social History Housing: House Patient Tobacco Use Status: Never used Tobacco e-Cigarette/Vaping Use: Never Used service: No Current occupational status: employed Cognitive needs: No Hearing needs: No Vision needs: Yes Physical Exam Vital Signs: Last Vital Signs Pulse 50 04/05/24 09:56 BP 100/62 02/20/24 09:56 Pulse Ox 92 02/20/24 09:56 Oxygen Delivery Method Room Air 02/20/24 09:56 BMI result Body Mass Index 41.8 Const General: comfortable and no acute distress Orientation/consciousness: patient oriented x3 HEENT Head: Yes normocephalic Mouth: Normal oral and palatal mucosa present Eyes EOM: EOMs intact bilaterally Neck Neck: Yes supple Resp Auscultation: clear to auscultation bilaterally Cardio Jugular venous distension: no JVD Rate: regular rate GI Palpation (GI): Soft to palpation Auscultation: normal bowel sounds General: Yes no CVA tenderness Back/Spine/Pelvis Back: no CVA tenderness Skin General skin exam: no rashes or lesions noted Neuro General: patient oriented x3 and moves all extremities Extrem General: Yes no pedal edema Assessment & Plan Assessment & Plan (1) FADY (acute kidney injury): Code(s): N17.9 - Acute kidney failure, unspecified Category: Medical (2) Essential hypertension: Code(s): I10 - Essential (primary) hypertension Category: Medical Plan Angela has FADY likely from compromise in renal perfusion with resultant tubular injury. Her urine output is good. It unlikely that she has a GN/AIN causing FADY, though possible. I ordered extensive work up including imaging studies as well as Urine & blood work. I discontinued her ACEI and HCTZ and asked her to maintain good hydration. She was encouraged to stay away from NSAID's. All these have been discussed in detail. Time spent retrieving data, documentation and patient visit 49 minutes. All questions answered. Further management is pending evolving data Orders: Orders Myeloperoxidase Antibody 02/20/24 N17.9 - Acute kidney failure, unspecified Anti Glomerular Basement Memb 02/20/24 N17.9 - Acute kidney failure, unspecified Immunofixation Pnl, Serum 02/20/24 N17.9 - Acute kidney failure, unspecified Calcium 02/20/24 N17.9 - Acute kidney failure, unspecified Complete Blood Count Auto Diff 02/20/24 N17.9 - Acute kidney failure, unspecified Prothrombin Time INR 02/20/24 N17.9 - Acute kidney failure, unspecified UA and rflx microscopic 02/20/24 N17.9 - Acute kidney failure, unspecified Protein Creatinine Ratio, Ur 02/20/24 N17.9 - Acute kidney failure, unspecified US renal BI 02/20/24 N17.9 - Acute kidney failure, unspecified US renal doppler 02/20/24 N17.9 - Acute kidney failure, unspecified Anti DNA DS Antibody 02/20/24 N17.9 - Acute kidney failure, unspecified Proteinase 3 PR3 Antibodies 02/20/24 N17.9 - Acute kidney failure, unspecified Complement C4 02/20/24 N17.9 - Acute kidney failure, unspecified Complement C3 02/20/24 N17.9 - Acute kidney failure, unspecified Phospholipase A2 Receptor Pnl 02/20/24 N17.9 - Acute kidney failure, unspecified Hepatitis B Surface Antigen 02/20/24 N17.9 - Acute kidney failure, unspecified Hepatitis B Core Antibody 02/20/24 N17.9 - Acute kidney failure, unspecified Electrolytes 02/20/24 N17.9 - Acute kidney failure, unspecified Blood Urea Nitrogen 02/20/24 N17.9 - Acute kidney failure, unspecified Creatinine 02/20/24 N17.9 - Acute kidney failure, unspecified Immunofixation, Random Urine 02/20/24 N17.9 - Acute kidney failure, unspecified Medications: Discontinued lisinopril Discontinued Reason: Doctor's Order 40 mg PO DAILY 90 tabs 1RF bumetanide Discontinued Reason: Doctor's Order 1 mg PO QAM 90 caps 1RF Coding Level of Care Code New Pt Level 4 (01264) Diagnoses FADY (acute kidney injury) N17.9 Essential hypertension I10
== END 2024-02-20 10:46 | disposition home or self-care (01) ==
PROVIDERS: PCP Internal Medicine; Referring Provider Internal Medicine; Visit Provider Internal Medicine Nephrology
DX: N17.9 Acute kidney failure, unspecified (principal); I10 Essential (primary) hypertension
CPT/HCPCS: 99204

== ENCOUNTER → 2024-02-20 09:54 | Outpatient (BNVA) | payer OTHER, SELFPAY | PROVIDERS: PCP Internal Medicine; Referring Provider Internal Medicine; Visit Provider Internal Medicine Nephrology | DX: N17.9 Acute kidney failure, unspecified (principal); I10 Essential (primary) hypertension | CPT/HCPCS: 99202 ==

== ENCOUNTER 2024-03-11 08:18 | Outpatient (REF) | payer OTHER, SELFPAY ==
--- NOTE | ~2024-03-11 | US_ITS ---
EXAMINATION: ULTRASOUND RENAL WITH DOPPLER CLINICAL INFORMATION: Acute kidney failure COMPARISON: None. TECHNIQUE: Real-time grayscale, color Doppler, and duplex Doppler evaluation of the kidneys and renal vasculature was performed. FINDINGS: Evaluation is suboptimal due to body habitus and overlying bowel gas/rib shadowing. RENAL MEASUREMENTS: Right: 9.8 x 4.0 x 4.8 cm (Sag x AP x TV) Left: 10.1 x 4.7 x 5.1 cm (Sag x AP x TV) The renal parenchyma appears minimally increased in echogenicity consistent with medical renal disease. There is a anechoic simple cyst in the upper pole the right kidney measuring 2.3 x 2.2 x 1.9 cm. No hydronephrosis or nephrolithiasis. No follow-up indicated. DOPPLER INTERROGATION: Aorta: 96.7 cm/sec Right Main Renal Artery: Proximal: 116 cm/sec Mid: 102 cm/sec Distal: 183 cm/sec Right Segmental Renal Artery Resistive Indices: Upper: 0.72 Mid: 0.62 Lower: 0.71 Left Main Renal Artery: Proximal: 97.8 cm/sec Mid: 197 cm/sec Distal: 182 cm/sec Left Segmental Renal Artery Resistive Indices: Upper: 0.79 Mid: 0.74 Lower: 0.62 The bilateral renal veins are patent. US/US renal doppler IMPRESSION: Suboptimal evaluation due to body habitus and overlying shadowing. Mildly elevated velocity seen in the bilateral renal arteries which could represent less than 60% stenosis. Minimally increased renal parenchymal echogenicity most consistent with medical renal disease. Right renal cyst.
--- NOTE | ~2024-03-11 | US_ITS ---
EXAMINATION: ULTRASOUND RENAL WITH DOPPLER CLINICAL INFORMATION: Acute kidney failure COMPARISON: None. TECHNIQUE: Real-time grayscale, color Doppler, and duplex Doppler evaluation of the kidneys and renal vasculature was performed. FINDINGS: Evaluation is suboptimal due to body habitus and overlying bowel gas/rib shadowing. RENAL MEASUREMENTS: Right: 9.8 x 4.0 x 4.8 cm (Sag x AP x TV) Left: 10.1 x 4.7 x 5.1 cm (Sag x AP x TV) The renal parenchyma appears minimally increased in echogenicity consistent with medical renal disease. There is a anechoic simple cyst in the upper pole the right kidney measuring 2.3 x 2.2 x 1.9 cm. No hydronephrosis or nephrolithiasis. No follow-up indicated. DOPPLER INTERROGATION: Aorta: 96.7 cm/sec Right Main Renal Artery: Proximal: 116 cm/sec Mid: 102 cm/sec Distal: 183 cm/sec Right Segmental Renal Artery Resistive Indices: Upper: 0.72 Mid: 0.62 Lower: 0.71 Left Main Renal Artery: Proximal: 97.8 cm/sec Mid: 197 cm/sec Distal: 182 cm/sec Left Segmental Renal Artery Resistive Indices: Upper: 0.79 Mid: 0.74 Lower: 0.62 The bilateral renal veins are patent. US/US renal BI IMPRESSION: Suboptimal evaluation due to body habitus and overlying shadowing. Mildly elevated velocity seen in the bilateral renal arteries which could represent less than 60% stenosis. Minimally increased renal parenchymal echogenicity most consistent with medical renal disease. Right renal cyst.
[2024-03-11 10:23] LABS: MANUAL DIFF FLAG NO
[2024-03-11 10:35] LABS: Appearance Urine Clear; Color Urine Yellow; Glucose Urine UA Negative (Negative); Leukocyte Esterase Urine Small (1+) (Negative); Nitrite Urine Negative (Negative); PH 6.5 (5.0-9.0); UMIC TRIGGER UA YES; Urine Blood Negative (Negative); Urine Ketones Negative (Negative); Urine Protein Negative (Neg-Trace)
[2024-03-11 10:41] LABS: INTERNATIONAL NORM RATIO 0.9 (0.9-1.1); Prothrombin Time 11.4 SEC (11.1-13.3)
[2024-03-11 10:45] LABS: Bacteria Urine None Seen (None Seen); Hyaline Casts Urine 0-2 /LPF (0-2); RBC Urine 0-2 /HPF (0-2); Squamous Epithelial Cell Urine 0-2 /HPF (0-2); WBC Urine 0-5 /HPF (0-5)
[2024-03-11 10:49] LABS: Eosinophils Absolute Auto 0.1 X10*3/uL (0.0-0.4); Eosinophils Percent Auto 1.7 % (0-4); Hematocrit 35.2 % (37.0-47.0); Hemoglobin 11.4 g/dl (12.0-16.0); Imm Gran Abs Auto 0.02 X10*3/uL (0.00-0.03); Imm Gran Pct Auto 0.5 % (0.0-0.4); Lymphocytes Absolute Auto 1.1 X10*3/uL (1.2-4.9); Lymphocytes Percent Auto 26.7 % (20-40); Mean Corpuscular HGB Conc 32.4 g/dl (31.0-35.0); Mean Corpuscular Hemoglobin 28.6 pg (27.0-33.0); Mean Corpuscular Volume 88.4 fL (80.0-98.0); Mean Platelet Volume 9.9 fL (9.4-12.3); Monocytes Absolute Auto 0.3 X10*3/uL (0.1-1.2); Monocytes Percent Auto 7.5 % (2-11); Neutrophils Absolute Auto 2.7 x10*3/uL (2.0-8.3); Neutrophils Percent Auto 63.6 % (45-73); Platelet Count 163 X10*3/uL (160-400); Red Blood Count 3.98 X10*6/uL (4.20-5.50); Red Cell Distribution Width 13.2 % (11.0-16.0); White Blood Count 4.2 X10*3/uL (4.8-10.8)
[2024-03-11 11:01] LABS: HBc Num1 0.18 S/CO (0.00-0.79); HBsAGNum1 0.33 S/CO (0.00-0.99); Hepatitis B Core Antibody Nonreactive (Nonreactive); Hepatitis B Surface Antigen Negative (Negative)
[2024-03-11 11:05] LABS: Anion Gap 9 (12-20); Blood Urea Nitrogen 13 mg/dL (9-16); Calcium 9.5 mg/dL (8.4-10.2); Carbon Dioxide 29 mmol/L (22-29); Chloride 107 mmol/L (96-108); Estimated Glomerular Filt Rate > 60; Potassium 4.2 mmol/L (3.3-5.1); Sodium 141 mmol/L (135-145)
[2024-03-11 11:30] LABS: Creatinine Urine 54.65 mg/dL; Total Protein Urine Random < 7 mg/dL (<12)
[2024-03-12 09:04] LABS: Complement C3 164 mg/dL (83-193)
[2024-03-12 14:13] LABS: Anti DNA DS Antibody 2 IU/mL; Anti Glomerular Basement Memb <1.0 AI; Myeloperoxidase Antibody <1.0 AI; Proteinase 3 PR3 Antibodies <1.0 AI
[2024-03-16 22:49] LABS: IgA 102 mg/dL (47-310); IgG 1270 mg/dL (600-1640); IgM 99 mg/dL (50-300)
[2024-03-19 12:29] LABS: Phospholipase A2 IgG ELISA <4 RU/mL; Phospholipase A2 IgG IFA NEGATIVE (NEGATIVE)
== END 2024-03-11 08:19 | disposition home or self-care (01) ==
LOC: HO.HMGCX 08:18
PROVIDERS: PCP Internal Medicine; Visit Provider Internal Medicine Nephrology
DX: N17.9 Acute kidney failure, unspecified (principal)
CPT/HCPCS: 76775; 80051; 81001; 82310; 82565; 82570; 82784; 83520; 84156; 84520; 85025; 85610; 86021; 86160; 86225; 86255; 86334; 86335; 86704; 87340; 93975

== ENCOUNTER 2024-03-26 10:04 | Outpatient (AMB) | payer OTHER, SELFPAY ==
--- NOTE | 2024-03-26 10:06 | HO.NEPHOV_ITS ---
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 She has hypertension and had been on ACEI and HCTZ. She has dyslipidemia and is on statins. She has been having persistent numbness and tingling in left lower extremity for which she has undergone MRI of lumbar spine, CT angiogram of lower extremities as well as EMG. Her CTA aorta showed no significant arterial stenosis. She is not a diabetic. She has no edema, uncontrolled BP, hematuria, SOB, PND, orthopnea, orthostasis, epistaxis, photosensitivity, new skin rashes, new bone/back pain, excess NSAID intake. She has had no recent antibiotics, sore throat or sinusitis. She denied any H/O CAD, CVA, CHF, BRIANA. Recently her serum creatinine went up to 1.98 which has improved to baseline now. [facility] Medical History (Updated 03/26/24 @ 10:47 by Patrick Paz MD) Peripheral neuropathy Depression Anemia Lumbar radiculopathy Varicose veins of left lower extremity with pain Migraine GERD (gastroesophageal reflux disease) Dyslipidemia Essential hypertension Paresthesia and pain of left extremity Surgical History Hx of colonoscopy Hx of cholecystectomy Hx of knee surgery H/O wrist surgery History of hysterectomy Family History Father Diabetes Mother Parkinson disease Daughter No problems noted. Brother No problems noted. Sister No problems noted. Social History Housing: House Patient Tobacco Use Status: Never used Tobacco e-Cigarette/Vaping Use: Never Used service: No Current occupational status: employed Cognitive needs: No Hearing needs: No Vision needs: Yes Physical Exam Vital Signs: Last Vital Signs Pulse 65 03/26/24 10:07 BP 144/84 H 03/26/24 10:07 Pulse Ox 99 03/26/24 10:07 Oxygen Delivery Method Room Air 03/26/24 10:07 BMI result Body Mass Index 41.9 Const General: comfortable and no acute distress Orientation/consciousness: patient oriented x3 HEENT Head: Yes normocephalic Mouth: Normal oral and palatal mucosa present Eyes EOM: EOMs intact bilaterally Neck Neck: Yes supple Resp Auscultation: clear to auscultation bilaterally Cardio Jugular venous distension: no JVD Rate: regular rate GI Palpation (GI): Soft to palpation Auscultation: normal bowel sounds General: Yes no CVA tenderness Back/Spine/Pelvis Back: no CVA tenderness Skin General skin exam: no rashes or lesions noted Neuro General: patient oriented x3 and moves all extremities Extrem General: Yes no pedal edema Results Reviewed Nephrology Results: Hgb 11.4 g/dl (12.0-16.0) L 03/11/24 WBC 4.2 X10*3/uL (4.8-10.8) L 03/11/24 Plt Count 163 X10*3/uL (160-400) 03/11/24 Sodium 141 mmol/L (135-145) 03/11/24 Potassium 4.2 mmol/L (3.3-5.1) 03/11/24 Chloride 107 mmol/L (96-108) 03/11/24 Carbon Dioxide 29 mmol/L (22-29) 03/11/24 BUN 13 mg/dL (9-16) 03/11/24 Creatinine 0.95 mg/dL (0.5-1.4) 03/11/24 Calcium 9.5 mg/dL (8.4-10.2) 03/11/24 Urine Protein Negative mg/dL (Neg-Trace) 03/11/24 Urine Creatinine 54.65 mg/dL 03/11/24 Protein/Creatinin Ratio TNP 03/11/24 Renal US 03/11/24 Assessment & Plan Assessment & Plan (1) FADY (acute kidney injury): Code(s): N17.9 - Acute kidney failure, unspecified Category: Medical (2) Essential hypertension: Code(s): I10 - Essential (primary) hypertension Category: Medical (3) Renal cyst: Code(s): N28.1 - Cyst of kidney, acquired Category: Medical Plan Angela has FADY likely from compromise in renal perfusion with resultant tubular injury which has resolved. Her urine output is good. Extensive work up was negative. Her Mildly elevated velocity seen in the bilateral renal arteries which could represent less than 60% stenosis. She also had a right renal cyst. I discontinued her ACEI and HCTZ at the last visit . She is asked her to maintain good hydration. She was encouraged to stay away from NSAID's. I started on Chlorthalidone 12.5 mg daily( explained side effects) to maintain BP. She may need losartan. . All questions answered. Further management is pending evolving data Orders: Orders Creatinine Today I10 - Essential (primary) hypertension Blood Urea Nitrogen Today I10 - Essential (primary) hypertension Electrolytes Today I10 - Essential (primary) hypertension Medications: New chlorthalidone 12.5 mg (1/2 x 25 mg) PO DAILY 30 days 15 tabs 1RF Coding Level of Care Code Est Pt Level 4 (82359) Diagnoses FADY (acute kidney injury) N17.9 Essential hypertension I10 Renal cyst N28.1
[2024-03-26 10:07] VITALS: BP 144/84; PULSE 65; O2SAT 99; BMI 41.9
== END 2024-03-26 10:51 | disposition home or self-care (01) ==
PROVIDERS: PCP Internal Medicine; Visit Provider Internal Medicine Nephrology
DX: N17.9 Acute kidney failure, unspecified (principal); I10 Essential (primary) hypertension; N28.1 Cyst of kidney, acquired
CPT/HCPCS: 99214

== ENCOUNTER → 2024-03-26 10:04 | Outpatient (BNVA) | payer OTHER, SELFPAY | PROVIDERS: PCP Internal Medicine; Visit Provider Internal Medicine Nephrology | DX: N17.9 Acute kidney failure, unspecified (principal); I10 Essential (primary) hypertension; N28.1 Cyst of kidney, acquired | CPT/HCPCS: 99212 ==

== ENCOUNTER 2024-04-17 08:19 | Outpatient (REF) | payer OTHER, SELFPAY ==
[2024-04-17 09:10] LABS: Anion Gap 11 (12-20); Blood Urea Nitrogen 17 mg/dL (9-16); Carbon Dioxide 30 mmol/L (22-29); Chloride 101 mmol/L (96-108); Estimated Glomerular Filt Rate 57; Potassium 3.4 mmol/L (3.3-5.1); Sodium 139 mmol/L (135-145)
[2024-04-17 10:59] LABS: Appearance Urine Clear; Color Urine Yellow; Glucose Urine UA Negative (Negative); Leukocyte Esterase Urine Moderate (2+) (Negative); Nitrite Urine Negative (Negative); UMIC TRIGGER UA YES; Urine Blood Negative (Negative); Urine Ketones Negative (Negative); Urine Protein Negative (Neg-Trace)
[2024-04-17 11:04] LABS: Bacteria Urine None Seen (None Seen); Hyaline Casts Urine 0-2 /LPF (0-2); RBC Urine 0-2 /HPF (0-2)
== END 2024-04-17 08:20 | disposition home or self-care (01) ==
LOC: HO.LAB 08:19
PROVIDERS: PCP Internal Medicine; Visit Provider Internal Medicine Nephrology
DX: I10 Essential (primary) hypertension (principal)
CPT/HCPCS: 36415; 80051; 81001; 81003; 82565; 84520

== ENCOUNTER 2024-04-21 11:37 | Outpatient (AMB) | payer OTHER, SELFPAY ==
[2024-04-21 11:42] VITALS: BP 122/82; PULSE 65; O2SAT 98; BMI 41.4
--- NOTE | 2024-04-21 11:42 | HO.NEPHOV_ITS ---
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 She has hypertension and had been on ACEI and HCTZ. She has dyslipidemia and is on statins. She has been having persistent numbness and tingling in left lower ext remity for which she has undergone MRI of lumbar spine, CT angiogram of lower extremities as well as EMG. Her CTA aorta showed no significant arterial stenosis. She is not a diabetic. She has no edema, uncontrolled BP, hematuria, SOB, PND, orthopnea, orthostasis, epistaxis, photosensitivity, new skin rashes, new bone/back pain, excess NSAID intake. She has had no recent antibiotics, sore throat or sinusitis. She denied any H/O CAD, CVA, CHF, BRIANA. Recently her serum creatinine went up to 1.98 which has improved to baseline now. [facility] Medical History (Updated 03/26/24 @ 10:47 by Patrick Paz MD) Peripheral neuropathy Depression Anemia Lumbar radiculopathy Varicose veins of left lower extremity with pain Migraine GERD (gastroesophageal reflux disease) Dyslipidemia Essential hypertension Paresthesia and pain of left extremity Surgical History Hx of colonoscopy Hx of cholecystectomy Hx of knee surgery H/O wrist surgery History of hysterectomy Family History Father Diabetes Mother Parkinson disease Daughter No problems noted. Brother No problems noted. Sister No problems noted. Social History Housing: House Patient Tobacco Use Status: Never used Tobacco e-Cigarette/Vaping Use: Never Used service: No Current occupational status: employed Cognitive needs: No Hearing needs: No Vision needs: Yes Physical Exam Vital Signs: Last Vital Signs Pulse 65 06/05/24 11:42 BP 122/82 04/21/24 11:42 Pulse Ox 98 04/21/24 11:42 Oxygen Delivery Method Room Air 04/21/24 11:42 BMI result Body Mass Index 41.4 Const General: comfortable and no acute distress Orientation/consciousness: patient oriented x3 HEENT Head: Yes normocephalic Mouth: Normal oral and palatal mucosa present Eyes EOM: EOMs intact bilaterally Neck Neck: Yes supple Resp Auscultation: clear to auscultation bilaterally Cardio Jugular venous distension: no JVD Rate: regular rate GI Palpation (GI): Soft to palpation Auscultation: normal bowel sounds General: Yes no CVA tenderness Back/Spine/Pelvis Back: no CVA tenderness Skin General skin exam: no rashes or lesions noted Neuro General: patient oriented x3 and moves all extremities Extrem General: Yes no pedal edema Results Reviewed Nephrology Results: Hgb 11.4 g/dl (12.0-16.0) L 03/11/24 WBC 4.2 X10*3/uL (4.8-10.8) L 03/11/24 Plt Count 163 X10*3/uL (160-400) 03/11/24 Sodium 139 mmol/L (135-145) 04/17/24 Potassium 3.4 mmol/L (3.3-5.1) 04/17/24 Chloride 101 mmol/L (96-108) 04/17/24 Carbon Dioxide 30 mmol/L (22-29) H 04/17/24 BUN 17 mg/dL (9-16) H 04/17/24 Creatinine 1.02 mg/dL (0.5-1.4) 04/17/24 Calcium 9.5 mg/dL (8.4-10.2) 03/11/24 Urine Protein Negative mg/dL (Neg-Trace) 04/17/24 Urine Creatinine 54.65 mg/dL 03/11/24 Protein/Creatinin Ratio TNP 03/11/24 Renal US 03/11/24 Assessment & Plan Assessment & Plan (1) FADY (acute kidney injury): Code(s): N17.9 - Acute kidney failure, unspecified Category: Medical (2) Renal cyst: Code(s): N28.1 - Cyst of kidney, acquired Category: Medical (3) Essential hypertension: Code(s): I10 - Essential (primary) hypertension Category: Medical Plan Angela had FADY likely from compromise in renal perfusion with resultant tubular injury which has resolved. Her urine output is good. Extensive work up was negative. Her Doppler of renal arteries showed miidly elevated velocity in the bilateral renal arteries which could represent less than 60% stenosis. She also had a right renal cyst which needs a F/U scan later. She is asked her to maintain good hydration. She was encouraged to stay away from NSAID's. I started on Chlorthalidone 12.5 mg daily at the last visit ( explained side effects) to maintain BP. She may need losartan in the future . She could keep up with high K containing diet given she is on thiazides. All questions answered. Further management is pending evolving data Orders: Orders Creatinine Today I10 - Essential (primary) hypertension, N17.9 - Acute kidney failure, unspecified, N28.1 - Cyst of kidney, acquired Blood Urea Nitrogen Today I10 - Essential (primary) hypertension, N17.9 - Acute kidney failure, unspecified, N28.1 - Cyst of kidney, acquired Electrolytes Today I10 - Essential (primary) hypertension, N17.9 - Acute kidney failure, unspecified, N28.1 - Cyst of kidney, acquired Calcium Today I10 - Essential (primary) hypertension, N17.9 - Acute kidney failure, unspecified, N28.1 - Cyst of kidney, acquired Medications: Changed From chlorthalidone 12.5 mg (1/2 x 25 mg) PO DAILY 30 days 15 tabs 1RF To chlorthalidone 12.5 mg (1/2 x 25 mg) PO DAILY 90 days 45 tabs 3RF Coding Level of Care Code Est Pt Level 4 (27524) Diagnoses FADY (acute kidney injury) N17.9 Renal cyst N28.1 Essential hypertension I10
== END 2024-04-21 12:01 | disposition home or self-care (01) ==
PROVIDERS: PCP Internal Medicine; Visit Provider Internal Medicine Nephrology
DX: N17.9 Acute kidney failure, unspecified (principal); N28.1 Cyst of kidney, acquired; I10 Essential (primary) hypertension
CPT/HCPCS: 99214

== ENCOUNTER → 2024-04-21 11:37 | Outpatient (BNVA) | payer OTHER, SELFPAY | PROVIDERS: PCP Internal Medicine; Visit Provider Internal Medicine Nephrology | DX: I10 Essential (primary) hypertension (principal); N17.9 Acute kidney failure, unspecified; N28.1 Cyst of kidney, acquired | CPT/HCPCS: 99212 ==

== ENCOUNTER 2024-05-22 09:05 | Outpatient (AMB) | payer OTHER, SELFPAY ==
--- NOTE | 2024-05-22 09:11 | MHC.OFFWIV ---
Intake Vital Signs 05/22/24 09:12 Height 5 ft 3 in Weight 234 lb BMI 41.4 BP 116/80 Blood Pressure Location Lt brachial Position Sitting Pulse 67 Pulse Source Pulse Oximeter Temp 99.9 F Temp Source Oral Pulse Oximetry (%) 96 Oxygen Delivery Method Room Air Intake Visit Reasons: EP rt ear pain/throat pain Intake Note: pt here c/o RT ear pain/neck pain. Started Friday Patient Tobacco Use Status: Never used Tobacco Allergies hydrochlorothiazide Allergy (Unknown, Verified 05/22/24 09:12) shortness of breath/ palpitation Do you need a note to return to daycare/school/sports/work: No HPI EP rt ear pain/throat pain HPI Details Patient is a 53-year-old female comes to the walk-in clinic complaining of 3 days of right ear pain and sore throat. She did not check for COVID at home yet. She was exposed to COVID about 2 weeks ago, but denies any upper respiratory infection symptoms or other viral symptoms at the time. She denies fever or chills, nausea vomiting or diarrhea, weakness, malaise or myalgias, dizziness or vertigo, decreased hearing, discharge from the ear, anorexia, trouble swallowing, or other significant associated symptoms. [facility] Medical History Peripheral neuropathy Depression Anemia Lumbar radiculopathy Varicose veins of left lower extremity with pain Migraine GERD (gastroesophageal reflux disease) Dyslipidemia Essential hypertension Paresthesia and pain of left extremity Surgical History Hx of colonoscopy Hx of cholecystectomy Hx of knee surgery H/O wrist surgery History of hysterectomy Family History Father Diabetes Mother Parkinson disease Daughter No problems noted. Brother No problems noted. Sister No problems noted. Social History Housing: House Patient Tobacco Use Status: Never used Tobacco e-Cigarette/Vaping Use: Never Used service: No Current occupational status: employed Cognitive needs: No Hearing needs: No Vision needs: Yes Review of Systems Const All systems reviewed & are unremarkable except as noted in HPI and below Physical Exam Vital Signs: Last Vital Signs Temp 99.9 F 05/22/24 09:12 Pulse 67 05/22/24 09:12 BP 116/80 05/22/24 09:12 Pulse Ox 96 05/22/24 09:12 Oxygen Delivery Method Room Air 05/22/24 09:12 BMI result Body Mass Index 41.4 Const General: cooperative, healthy appearing, comfortable, no acute distress, alert, Physically active and well groomed; No anxious, diaphoretic, intoxicated appearing or poor hygiene Nutritional Appearance: average body habitus Limitations: no limitations HEENT Head: Yes normal to inspection, Yes normocephalic and Yes atraumatic Ears: hearing grossly normal bilaterally, external ears normal, TM normal on the right (12 o'clock position with injection and erythema), TM normal on the left and EAC's normal General nose exam: Normal external nose present, Normal nares present, No nasal polyps present, Normal septum present and No nasal discharge present Face and sinus: Yes normal facial exam, Yes sinuses nontender and Yes face symmetric Mouth: Normal oral and palatal mucosa present, lip normal and tongue normal Throat: Yes posterior oropharynx normal, No peritonsillar mass, No postnasal drainage, No uvular edema and No cobblestoning Eyes General: appearance normal, both eyes and all related structures Neck Neck: Yes normal visual inspection, Yes trachea midline, Yes supple and Yes lymphadenopathy (Mild right submandibular) Resp Effort & Inspection: normal respiratory effort Cardio Rate: regular rate Skin Other: Good color, warm and dry Psych Appearance: grossly normal Mental Status: mental status grossly normal Speech and movement: Normal speech and movement present Affect: normal affect Attitude: cooperative Thought process: Normal thought process present Insight: Good insight present (Psych) Judgement: Good judgement present (Psych) Assessment & Plan Assessment & Plan (1) Otitis media: Code(s): H66.90 - Otitis media, unspecified, unspecified ear Qualifiers: Chronicity: acute Laterality: right Otitis media type: serous Recurrence: non-recurrent Qualified Code(s): H65.01 - Acute serous otitis media, right ear Plan: Patient is a 53-year-old female with acute right otitis media, mild injection superior aspect of the tympanic membrane. She has some associated glandular swelling and from the lymphatic movement, and we discussed using heat and massage, as well as plenty of water. I started her on a course of Augmentin. She knows to follow up if symptoms persist or worsen, particularly if she develops worsening ear pain or discharge, fever or chills, nausea vomiting or diarrhea, dizziness or vertigo weakness, myalgias or malaise. Orders: Orders SARS-CoV2/FLU/RSV 05/22/24 J06.9 - Acute upper respiratory infection, unspecified Medications: New amoxicillin-pot clavulanate 875-125 mg 1 tab PO BID 14 tabs 0RF 7 days Coding Level of Care Code Est Pt Level 4 (18504) Diagnoses Non-recurrent acute serous otitis media of right ear H65.01 Chronicity: acute Laterality: right Otitis media type: serous Recurrence: non-recurrent
[2024-05-22 09:12] VITALS: BP 116/80; PULSE 67; TEMP 37.7; O2SAT 96; BMI 41.4
== END 2024-05-22 09:51 | disposition home or self-care (01) ==
PROVIDERS: PCP Internal Medicine; Visit Provider Physician Assistant Medical
DX: H65.01 Acute serous otitis media, right ear (principal)
CPT/HCPCS: 99051; 99214

== ENCOUNTER 2024-05-22 15:19 | Outpatient (REF) | payer OTHER, SELFPAY ==
[2024-05-22 16:11] LABS: Influenza A PCR NEGATIVE (Negative); Influenza B PCR NEGATIVE (Negative); Resp Syncy Virus RNA Qual PCR NEGATIVE (Negative); SARS COV2 PCR INHOUSE NEGATIVE (Negative)
== END 2024-05-22 15:20 | disposition home or self-care (01) ==
LOC: HO.LNP 15:19
PROVIDERS: Visit Provider Physician Assistant Medical
DX: J06.9 Acute upper respiratory infection, unspecified (principal)
CPT/HCPCS: 0241U

== ENCOUNTER 2024-06-26 09:19 | Outpatient (AMB) | payer OTHER, SELFPAY ==
[2024-06-26 10:08] VITALS: BP 110/80; PULSE 52; TEMP 36.8; O2SAT 98; BMI 41.4
--- NOTE | 2024-06-26 10:08 | AM.OFFWIN_ITS ---
Intake Vital Signs 06/26/24 10:08 Height 5 ft 3 in Weight 234 lb BMI 41.4 BP 110/80 Blood Pressure Location Lt brachial Position Sitting Pulse 52 Pulse Source Pulse Oximeter Temp 98.3 F Temp Source Oral Pulse Oximetry (%) 98 Intake Visit Reasons: EP LT ear pain/?infection Intake Note: pt is here for left ear pain, possible infection Patient Tobacco Use Status: Never used Tobacco Allergies hydrochlorothiazide Allergy (Unknown, Verified 06/26/24 10:08) shortness of breath/ palpitation Do you need a note to return to daycare/school/sports/work: No HPI EP LT ear pain/?infection HPI Details Patient is a 53-year-old female comes to the walk-in clinic complaining of left ear pain and questioning infection, a month after being treated for right otitis media. She reports that symptoms started up a few days ago with the left side, and she reports having allergies to her dogs, which are shedding more than usual right now due to the heat. She has been taking Claritin for years, and uses Flonase as needed. She denies fever or chills, nausea vomiting or diarrhea, postnasal drip or cough, headache or dizziness or vertigo, ear discharge, decreased hearing, sinus tenderness, sore throat, or other significant associated symptoms. [facility] Medical History Peripheral neuropathy Depression Anemia Lumbar radiculopathy Varicose veins of left lower extremity with pain Migraine GERD (gastroesophageal reflux disease) Dyslipidemia Essential hypertension Paresthesia and pain of left extremity Surgical History Hx of colonoscopy Hx of cholecystectomy Hx of knee surgery H/O wrist surgery History of hysterectomy Family History Father Diabetes Mother Parkinson disease Daughter No problems noted. Brother No problems noted. Sister No problems noted. Social History Housing: House Patient Tobacco Use Status: Never used Tobacco e-Cigarette/Vaping Use: Never Used service: No Current occupational status: employed Cognitive needs: No Hearing needs: No Vision needs: Yes Review of Systems Const All systems reviewed & are unremarkable except as noted in HPI and below Physical Exam Vital Signs: Last Vital Signs Temp 98.3 F 06/26/24 10:08 Pulse 52 06/26/24 10:08 BP 110/80 06/26/24 10:08 Pulse Ox 98 06/26/24 10:08 BMI result Body Mass Index 41.4 Const General: cooperative, healthy appearing, no acute distress, alert, awake, Physically active and well groomed; No anxious, diaphoretic, ill appearing, intoxicated appearing or poor hygiene Nutritional Appearance: average body habitus Orientation/consciousness: oriented to person Limitations: no limitations HEENT Head: Yes normal to inspection, Yes normocephalic and Yes atraumatic Ears: hearing grossly normal bilaterally, external ears normal and EAC's normal Face and sinus: Yes normal facial exam, Yes sinuses nontender and Yes face symmetric Throat: Yes posterior oropharynx normal, Yes abnormal tonsil (mildly erythematous bilaterally), No peritonsillar mass, No postnasal drainage, No uvular edema and No cobblestoning Neck Neck: Yes normal visual inspection, Yes no lymphadenopathy, Yes trachea midline, Yes supple and No anterior neck swelling Resp Effort & Inspection: normal respiratory effort Cardio Rate: regular rate Skin Other: Good color, warm and dry Neuro General: oriented to person Psych Appearance: grossly normal Mental Status: mental status grossly normal Speech and movement: Normal speech and movement present Affect: normal affect Attitude: cooperative Thought process: Normal thought process present Insight: Good insight present (Psych) Judgement: Good judgement present (Psych) Assessment & Plan Assessment & Plan (1) Otitis media: Code(s): H66.90 - Otitis media, unspecified, unspecified ear Qualifiers: Otitis media type: allergic Chronicity: chronic Laterality: bilateral Qualified Code(s): H65.413 - Chronic allergic otitis media, bilateral Plan Patient with otitis media to the left side, likely chronic at this point as it was serous otitis when visualized on walk-in visit a month ago for pain to the other ear. At the time she was diagnosed with right otitis media, and the ear appear similar on that side today. I think she is likely full of fluid due to constant exposure to allergens, and we discussed switching from Claritin to Zyrtec or Samantha at this point. She should also be using her Flonase regularly. I did write her for a short course of prednisone for which she will monitor her blood pressure as she has been controlled with medication, however she does report kidney injury in the past. This should help open the eustachian tubes, if she is having dysfunction and is what is causing her to have persistent serous otitis. She will follow up if symptoms persist or worsen, and might be a candidate for ENT referral at that point. Medications: New azithromycin take 500 mg today (day 1), then 250 mg for 4 days (days 2-5) PO 6 tabs 0RF prednisone 40 mg (2 x 20 mg) PO DAILY 10 tabs 0RF 5 days Coding Level of Care Code Est Pt Level 4 (84123) Diagnoses Chronic allergic otitis media of both ears H65.413 Otitis media type: allergic Chronicity: chronic Laterality: bilateral
== END 2024-06-26 11:15 | disposition home or self-care (01) ==
PROVIDERS: PCP Internal Medicine; Visit Provider Physician Assistant Medical
DX: H65.413 Chronic allergic otitis media, bilateral (principal)
CPT/HCPCS: 99051; 99214

== ENCOUNTER 2024-08-17 09:10 | Outpatient (REF) | payer OTHER, SELFPAY ==
[2024-08-17 09:37] LABS: MANUAL DIFF FLAG NO
[2024-08-17 09:58] LABS: Basophils Percent Auto 0.2 % (0-2); Eosinophils Absolute Auto 0.1 X10*3/uL (0.0-0.4); Eosinophils Percent Auto 1.7 % (0-4); Hematocrit 39.5 % (37.0-47.0); Imm Gran Abs Auto 0.01 X10*3/uL (0.00-0.03); Imm Gran Pct Auto 0.2 % (0.0-0.4); Lymphocytes Absolute Auto 1.3 X10*3/uL (1.2-4.9); Lymphocytes Percent Auto 27.4 % (20-40); Mean Corpuscular HGB Conc 32.9 g/dl (31.0-35.0); Mean Corpuscular Volume 85.1 fL (80.0-98.0); Mean Platelet Volume 9.6 fL (9.4-12.3); Monocytes Absolute Auto 0.4 X10*3/uL (0.1-1.2); Monocytes Percent Auto 8.4 % (2-11); Neutrophils Absolute Auto 2.9 x10*3/uL (2.0-8.3); Neutrophils Percent Auto 62.1 % (45-73); Platelet Count 189 X10*3/uL (160-400); Red Blood Count 4.64 X10*6/uL (4.20-5.50); Red Cell Distribution Width 13.2 % (11.0-16.0); White Blood Count 4.7 X10*3/uL (4.8-10.8)
[2024-08-17 10:35] LABS: Alanine Aminotransferase 26 U/L (0-31); Aspartate Amino Transferase 24 U/L (5-31); Cholesterol 177 mg/dL (<200); HDL Cholesterol 45 mg/dL (>40); Iron 62 mcg/dL (30-160); LDL Cholesterol Calculated 110 mg/dL (<100); Percent Iron Saturation 27 % (15-50); Total Iron Binding Capacity 227 mcg/dL (228-428); Triglycerides 114 mg/dL (<150); Unsaturated Iron Binding 165 ug/dL
== END 2024-08-17 09:11 | disposition home or self-care (01) ==
LOC: HO.LAB 09:10
PROVIDERS: PCP Internal Medicine; Visit Provider Internal Medicine
DX: D64.9 Anemia, unspecified (principal); E78.5 Hyperlipidemia, unspecified
CPT/HCPCS: 36415; 80061; 83540; 84450; 84460; 85025

== ENCOUNTER 2024-08-18 10:25 | Outpatient (REF) | payer OTHER, SELFPAY ==
[2024-08-18 14:30] LABS: TSH reflex Free T4 1.95 uIU/mL (0.32-4.0)
[2024-08-18 14:37] LABS: Folate 7.5 ng/mL (> or = 4.0); Vitamin B12 317 pg/mL (200-900)
[2024-08-18 15:05] LABS: Erythrocyte Sedimentation Rate 16 MM/HR (0-20)
[2024-08-19 19:17] LABS: CRP High Sensitivity 11.9 mg/L
== END 2024-08-18 10:26 | disposition home or self-care (01) ==
LOC: HO.HMGCLDS 10:25
PROVIDERS: PCP Internal Medicine; Visit Provider Internal Medicine
DX: M79.10 Myalgia, unspecified site (principal); R20.0 Anesthesia of skin; R20.2 Paresthesia of skin; G62.9 Polyneuropathy, unspecified
CPT/HCPCS: 36415; 82085; 82550; 82607; 82746; 84443; 85652; 86141; 96127; 99212

== ENCOUNTER 2024-08-18 10:25 | Outpatient (AMB) | payer OTHER, SELFPAY ==
--- NOTE | 2024-08-18 10:33 | MHC.PC.OV ---
Vital Signs 08/18/24 11:07 Height 5 ft 3 in Weight 236 lb BMI 41.8 BP 120/70 Blood Pressure Location Lt brachial Position Sitting Pulse 65 Pulse Source Pulse Oximeter Pulse Oximetry (%) 98 Oxygen Delivery Method Room Air Intake Visit Reasons: 6 month follow up Intake Note: Pt is here today for her 6mo. f/u Allergies hydrochlorothiazide Allergy (Unknown, Verified 08/18/24 11:17) shortness of breath/ palpitation Medication List - Last Reconciled 08/18/24 by Lisa Dalton MD chlorthalidone 12.5 mg (1/2 x 25 mg) PO DAILY 90 days cholecalciferol (vitamin D3) 25 mcg PO DAILY ferrous fumarate 324 mg PO DAILY fluticasone propionate 50 mcg/actuation (Flonase Allergy Relief) 1 spray intranasal DAILY loratadine (Claritin) 10 mg PO DAILY magnesium 250 mg PO DAILY omeprazole 40 mg PO DAILY propranolol ER 120 mg PO DAILY rosuvastatin 5 mg PO Q2D 3 months sertraline 75 mg (1.5 x 50 mg) PO DAILY Tobacco use date assessed: 08/18/24 Dental Screening Dental Screen Date: 08/18/24 Did you have a dental visit in the last 12 months?: No Did you have a dental problem in the last 6 months where you did not have access to dental care?: No Was dental information given to patient?: Patient declined HPI 6 month follow up HPI Details 54-year-old lady here today for follow-up. She has been seen by Dr. Tirado [facility] neurology for chronic pain, mainly in both lower extremities and numbness of unclear etiology. Patient reports numbness and burning pain in her thighs and legs and minimal numbness in hands, and occasional burning pain that goes up from feet up to waist. Patient states that this has been present now for the last several months and has been interfering with her quality of life. Gets worse with movement and constant standing/walking. Has tried gabapentin but was too sedating so was switched to Lyrica which was later discontinued as it was not helping. He had EMGs twice both of which reportedly came back normal, MRI of cervical and thoracic spine were both unremarkable. Symptoms to not aligned with MS per neurology, spinal cord examination was normal, and symptoms are more indicative of fibromyalgia all diagnostic tests have been normal. In his to refer to a neuromuscular specialist. It has been recommended to try Cymbalta but patient does not want to stop her sertraline switch to Cymbalta. Patient however still has not heard from them about an appointment. [facility] Medical History (Updated 08/18/24 @ 11:31 by Lisa Dalton MD) Numbness and tingling Peripheral neuropathy Depression Anemia Lumbar radiculopathy Varicose veins of left lower extremity with pain Migraine GERD (gastroesophageal reflux disease) Dyslipidemia Essential hypertension Paresthesia and pain of left extremity Surgical History Hx of colonoscopy Hx of cholecystectomy Hx of knee surgery H/O wrist surgery History of hysterectomy Family History Father Diabetes Mother Parkinson disease Daughter No problems noted. Brother No problems noted. Sister No problems noted. Social History Housing: House Patient Tobacco Use Status: Never used Tobacco e-Cigarette/Vaping Use: Never Used service: No Current occupational status: employed Cognitive needs: No Hearing needs: No Vision needs: Yes Questionnaire PHQ-9 Over the last 2 weeks, how often have you been bothered by any of the following problems? 1. Little interest or pleasure in doing things: not at all 2. Feeling down, depressed, or hopeless: not at all 3. Trouble falling or staying asleep, or sleeping too much: not at all 4. Feeling tired or having little energy: not at all 5. Poor appetite or overeating: not at all 6. Feeling bad about yourself - or that you are a failure or have let yourself or your family down: not at all 7. Trouble concentrating on things, such as reading the newspaper or watching television: not at all 8. Moving or speaking so slowly that other people could have noticed. Or the opposite - being so fidgety or restless that you have been moving around a lot more than usual: not at all 9. Thoughts that you would be better off or of hurting yourself in some way: not at all Total score: 0 Depression Screening Interpretation: Negative Depression Screening Done: Yes 63650 - PHQ-9 Billing: Yes Source: Developed by Drs. Joshua Glass, Travon Cui and colleagues, with an educational keesha from [employer] Thrive Questionnaire Date Thrive assessed: 08/18/24 I am a: Patient What is your living situation today?: I have a steady place to live Within the past 12 months, did the food you bought not last and you didn't have the money to get more?: Never true Within the past 12 months, did you worry whether your food would run out before you got money to buy more?: Never true Do you have trouble paying for medicines?: No Do you have trouble getting transportation to medical appointments?: No Do you have trouble paying your heating and electricity bill?: No Do you have trouble taking care of your child, family member or friend?: No Do you have trouble with day-to-day activities such as bathing, preparing meals, shopping, managing finances, etc.?: No Are you interested in more education?: No Please select the resources that you would like help with: None Currently or been in a relationship where the following occur: No concerns reported THRIVE Score: 0 AUDIT C Alcohol Use Questionnaire (AUDIT-C) 1. How often do you have a drink containing alcohol?: Monthly or less 2. How many drinks containing alcohol do you have on a typical day when you are drinking?: 1 or 2 3. How often do you have six or more drinks on one occasion?: Never Total Score: 1 ROSA-7 AMB Questionnaire ROSA-7 Date ROSA - 7 assessed: 08/18/24 Feeling nervous, anxious, or on edge: 0 = Not at all Not being able to stop or control worryin = Not at all Worrying too much about different things: 0 = Not at all Trouble relaxin = Not at all Being so restless that it is hard to sit still: 0 = Not at all Becoming easily annoyed or irritable: 0 = Not at all Feeling afraid as if something awful might happen: 0 = Not at all Total ROSA-7 score (0-4 normal; 5-9 mild; 10-14 moderate; 15-21 severe): 0 Source: Developed by Drs. Joshua Glass, Travon Cui and colleagues, with an educational keesha from [employer] ROSA-7 Assessment Billing ROSA-7 Assessment Tool: ROSA-7 Assessment 17042 Review of Systems Const All systems reviewed & are unremarkable except as noted in HPI and below Neuro Reports Sensory deficit (Neuro) (in toes of both feet) Psych Reports no additional complaints Physical exam (Primary Care) Vital Signs: Last Vital Signs Pulse 65 08/18/24 11:07 BP 120/70 08/18/24 11:07 Pulse Ox 98 08/18/24 11:07 Oxygen Delivery Method Room Air 08/18/24 11:07 BMI result Body Mass Index 41.8 Tobacco/Smoking Status: Tobacco use Status Tobacco use date assessed 08/18/24 08/18/24 10:37 Patient Tobacco Use Status Never used Tobacco 08/18/24 10:37 e-Cigarette/Vaping Use Never Used 08/18/24 10:37 PHQ-9: PHQ-9 Score PHQ-9: Total score 0 08/19/24 14:14 Depression Screening Interpretation: Negative Thrive Assessment: Date of Thrive Assessment Date Thrive assessed 08/18/24 08/18/24 10:37 Currently or been in a relationship where the following occur: No concerns reported Const General: no acute distress and alert Nutritional Appearance: obese morbidly obese Orientation/consciousness: patient oriented x3 HENMT Face and sinus: Yes face symmetric Eyes General: appearance normal, both eyes and all related structures Neck Neck: Yes normal visual inspection, Yes full ROM, Yes no lymphadenopathy and Yes supple Thyroid: Thyroid normal Chest Breast/axilla palpation: normal palpation of the breasts Resp Effort & Inspection: normal respiratory effort Auscultation: clear to auscultation bilaterally Cardio Other: S1-S2 present regular rate and rhythm GI Palpation (GI): Soft to palpation, nontender, no guarding and no masses Auscultation: normal bowel sounds General: Yes no CVA tenderness and Yes deferred Back/Spine/Pelvis Back: no CVA tenderness and No back tenderness Skin General skin exam: no rashes or lesions noted Neuro General: patient oriented x3, tone normal, moves all extremities, no focal motor deficits and CN's II-XI intact bilaterally Sensory Exam: Sensory deficit (Neuro) (in toes of both feet) Extrem General: Yes full ROM, Yes no joint enlargement, Yes no pedal edema, Yes no calf tenderness and Yes normal gait Psych Appearance: grossly normal and well kempt Mental Status: mental status grossly normal Speech and movement: Normal speech and movement present Affect: normal affect Results Reviewed Results Reviewed: Name: Angeal Schultz Age/Sex: 54/F : 1970 Unit#: [id number] Attend Dr: Lisa Dalton MD Re08/17/24 Status: DEP REF Location: [facility] Disch: SPEC : [id number] CANDIDO: 08/17/24 STATUS: COMP REQ : [id number] RECD: 08/17/[address]: Lisa Dalton MD COMP: 08/17/24 ENTERED: 08/17/24 [facility] DR: ORDERED: CBC Auto Diff Test Result Flag Reference WBC 4.7 L 4.8-10.8 X10*3/uL RBC 4.64 4.20-5.50 X10*6/uL HGB 13.0 12.0-16.0 g/dl HCT 39.5 37.0-47.0 % MCV 85.1 80.0-98.0 fL MCH 28.0 27.0-33.0 pg MCHC 32.9 31.0-35.0 g/dl RDW 13.2 11.0-16.0 % PLT 189 160-400 X10*3/uL MPV 9.6 9.4-12.3 fL Neut Pct Auto 62.1 45-73 % ImGran Pct Auto 0.2 0.0-0.4 % Lymp Pct Auto 27.4 20-40 % Jack Pct Auto 8.4 2-11 % Eos Pct Auto 1.7 0-4 % Baso Pct Auto 0.2 0-2 % NRBC Pct Auto 0.0 0.0-0.2 /100WBC ANC Neut Abs # 2.9 2.0-8.3 x10*3/uL ImGran Abs Auto 0.01 0.00-0.03 X10*3/uL Lymph Abs Auto 1.3 1.2-4.9 X10*3/uL Jack Abs Auto 0.4 0.1-1.2 X10*3/uL Eos Abs Auto 0.1 0.0-0.4 X10*3/uL Baso Abs Auto 0.0 0.0-0.2 X10*3/uL NRBC Abs Auto 0.000 0.0-0.012 X10*3/uL Name: Angela Schultz Age/Sex: 54/F : 1970 Unit#: [id number] Attend Dr: Lisa Dalton MD Re08/17/24 Status: DEP REF Location: [facility] Disch: SPEC : [id number] CANDIDO: 08/17/24 STATUS: COMP REQ : [id number] RECD: 08/17/[address]: Lisa Dalton MD COMP: 08/17/24 ENTERED: 08/17/24 [facility] DR: ORDERED: IRON PROF, AST, ALT, Lipid Panel Test Result Flag Reference Iron 62 30-160 mcg/dL TIBC 227 L 228-428 mcg/dL Saturation 27 15-50 % UIBC 165 ug/dL AST (GOT) 24 5-31 U/L ALT (GPT) 26 0-31 U/L Triglyceride 114 <150 mg/dL Desirable Triglyceride: less than 150 mg/dL Borderline High Triglyceride 150-199 mg/dL High Triglyceride: 200-499 mg/dL Very High Triglyceride: greater than or equal to 5OO mg/dL Cholesterol 177 <200 mg/dL Desirable Cholesterol: less than 200 mg/dL Borderline High Cholesterol: 200-239 mg/dL High Cholesterol: greater than 239 mg/dL LDL Calculated 110 H <100 mg/dL Desirable LDL: less than 100 mg/dL Near Optimal/Above Optimal LDL: 110-129 mg/dL Borderline High LDL: 130-159 mg/dL High LDL: 160-189 mg/dL Very High LDL: greater than or equal to 190 mg/dL HDL 45 >40 mg/dL Desirable HDL: greater than 40 mg/dL Note: This HDL assay may give artificially low results in patients with liver disease. Coding Level of Care Code Est Pt Level 4 (17115) Diagnoses Muscle pain M79.10 Paresthesia and pain of left extremity M79.609; R20.2 Peripheral polyneuropathy G62.9 Peripheral neuropathy type: polyneuropathy, unspecified Additional Codes ROSA-7 Assessment Billing - ROSA-7 Assessment Tool: ROSA-7 Assessment 78487 ([id number]) Assessment & Plan Assessment & Plan (1) Muscle pain: Code(s): M79.10 - Myalgia, unspecified site (2) Paresthesia and pain of left extremity: Code(s): M79.609 - Pain in unspecified limb; R20.2 - Paresthesia of skin Category: Medical (3) Peripheral neuropathy: Code(s): G62.9 - Polyneuropathy, unspecified Category: Medical Qualifiers: Peripheral neuropathy type: polyneuropathy, unspecified Qualified Code(s): G62.9 - Polyneuropathy, unspecified Plan Labs ordered, patient advised to try contacting the neuromuscular specialist in [place], Dr. Hitesh Urena, and call Dr. Tirado's office to see if they already made an appointment for her to see one. She was also referred to Dr. Draper for a 2nd opinion per patient request Orders: Orders TSH reflex Free T4 08/18/24 M79.10 - Myalgia, unspecified site, R20.0 - Anesthesia of skin, R20.2 - Paresthesia of skin Vitamin B12 and Folate 08/18/24 M79.10 - Myalgia, unspecified site, R20.0 - Anesthesia of skin, R20.2 - Paresthesia of skin Aldolase 08/18/24 M79.10 - Myalgia, unspecified site, R20.0 - Anesthesia of skin, R20.2 - Paresthesia of skin Creatine Kinase Total 08/18/24 M79.10 - Myalgia, unspecified site, R20.0 - Anesthesia of skin, R20.2 - Paresthesia of skin Erythrocyte Sedimentation Rate 08/18/24 M79.10 - Myalgia, unspecified site, R20.0 - Anesthesia of skin, R20.2 - Paresthesia of skin CRP High Sensitivity 08/18/24 M79.10 - Myalgia, unspecified site, R20.0 - Anesthesia of skin, R20.2 - Paresthesia of skin Referrals Neurology Referral G62.9 - Polyneuropathy, unspecified, M79.609 - Pain in unspecified limb, R20.2 - Paresthesia of skin Medications: New nabumetone Take medication always with a meal 500 mg PO TID PRN 90 tabs 0RF pain, moderate
[2024-08-18 11:07] VITALS: BP 120/70; PULSE 65; O2SAT 98; BMI 41.8
== END 2024-08-18 13:36 | disposition home or self-care (01) ==
PROVIDERS: PCP Internal Medicine; Visit Provider Internal Medicine
DX: M79.10 Myalgia, unspecified site (principal); M79.609 Pain in unspecified limb; R20.2 Paresthesia of skin; G62.9 Polyneuropathy, unspecified

== ENCOUNTER 2024-10-20 09:52 | Outpatient (AMB) | payer OTHER, SELFPAY ==
--- NOTE | 2024-10-20 10:14 | HO.NEPHOV_ITS ---
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 She has dyslipidemia and is on statins. She has been having persistent numbness and tingling in left lower extremity for which she has undergone MRI of lumbar spine, CT angiogram of lower extremities as well as EMG. Her CTA aorta showed no significant arterial stenosis. She is not a diabetic. She has no edema, hematuria, SOB, PND, orthopnea, orthostasis, epistaxis, photosensitivity, new skin rashes, new bone/back pain, excess NSAID intake. She has had no recent antibiotics, sore throat or sinusitis. She denied any H/O CAD, CVA, CHF, BRIANA. Her serum creatinine had improved to baseline now. [facility] Medical History (Updated 08/18/24 @ 11:31 by Lisa Dalton MD) Numbness and tingling Peripheral neuropathy Depression Anemia Lumbar radiculopathy Varicose veins of left lower extremity with pain Migraine GERD (gastroesophageal reflux disease) Dyslipidemia Essential hypertension Paresthesia and pain of left extremity Surgical History Hx of colonoscopy Hx of cholecystectomy Hx of knee surgery H/O wrist surgery History of hysterectomy Family History Father Diabetes Mother Parkinson disease Daughter No problems noted. Brother No problems noted. Sister No problems noted. Social History Housing: House Patient Tobacco Use Status: Never used Tobacco e-Cigarette/Vaping Use: Never Used service: No Current occupational status: employed Cognitive needs: No Hearing needs: No Vision needs: Yes Review of Systems Const All systems reviewed & are unremarkable except as noted in HPI and below Physical Exam Vital Signs: Last Vital Signs Pulse 70 10/20/24 10:16 BP 138/80 10/20/24 10:16 Pulse Ox 99 10/20/24 10:16 Oxygen Delivery Method Room Air 10/20/24 10:16 BMI result Body Mass Index 41.1 Const General: comfortable and no acute distress Orientation/consciousness: patient oriented x3 HEENT Head: Yes normocephalic Mouth: Normal oral and palatal mucosa present Eyes EOM: EOMs intact bilaterally Neck Neck: Yes supple Resp Auscultation: clear to auscultation bilaterally Cardio Jugular venous distension: no JVD Rate: regular rate GI Palpation (GI): Soft to palpation Auscultation: normal bowel sounds General: Yes no CVA tenderness Back/Spine/Pelvis Back: no CVA tenderness Skin General skin exam: no rashes or lesions noted Neuro General: patient oriented x3 and moves all extremities Extrem General: Yes no pedal edema Results Reviewed Nephrology Results: Hgb 13.0 g/dl (12.0-16.0) 08/17/24 WBC 4.7 X10*3/uL (4.8-10.8) L 08/17/24 Plt Count 189 X10*3/uL (160-400) 08/17/24 Sodium 139 mmol/L (135-145) 04/17/24 Potassium 3.4 mmol/L (3.3-5.1) 04/17/24 Chloride 101 mmol/L (96-108) 04/17/24 Carbon Dioxide 30 mmol/L (22-29) H 04/17/24 BUN 17 mg/dL (9-16) H 04/17/24 Creatinine 1.02 mg/dL (0.5-1.4) 04/17/24 Calcium 9.5 mg/dL (8.4-10.2) 03/11/24 Urine Protein Negative mg/dL (Neg-Trace) 04/17/24 Urine Creatinine 54.65 mg/dL 03/11/24 Protein/Creatinin Ratio TNP 03/11/24 Renal US 03/11/24 Assessment & Plan Assessment & Plan (1) Essential hypertension: Code(s): I10 - Essential (primary) hypertension Category: Medical (2) Renal cyst: Code(s): N28.1 - Cyst of kidney, acquired Category: Medical Plan Angela has H/O FADY likely from compromise in renal perfusion with resultant tubular injury which has resolved. Her urine output is good. Extensive work up was negative. Her Doppler of renal arteries showed miidly elevated velocity in the bilateral renal arteries which could represent less than 60% stenosis. She also had a right renal cyst which needs a F/U scan later. She is asked her to maintain good hydration. She was encouraged to stay away from NSAID's. She is on Chlorthalidone 12.5 mg daily to maintain BP. She may need losartan in the future . F/U labs ordered. All questions answered. Orders: Orders Blood Urea Nitrogen Today I10 - Essential (primary) hypertension Electrolytes Today I10 - Essential (primary) hypertension Creatinine Today I10 - Essential (primary) hypertension Calcium Today I10 - Essential (primary) hypertension Coding Level of Care Code Est Pt Level 4 (41523) Diagnoses Essential hypertension I10 Renal cyst N28.1
[2024-10-20 10:16] VITALS: BP 138/80; PULSE 70; O2SAT 99; BMI 41.1
== END 2024-10-20 10:49 | disposition home or self-care (01) ==
PROVIDERS: PCP Internal Medicine; Visit Provider Internal Medicine Nephrology
DX: I10 Essential (primary) hypertension (principal); N28.1 Cyst of kidney, acquired
CPT/HCPCS: 99214

== ENCOUNTER → 2024-10-20 09:52 | Outpatient (BNVA) | payer OTHER, SELFPAY | PROVIDERS: PCP Internal Medicine; Visit Provider Internal Medicine Nephrology | DX: I10 Essential (primary) hypertension (principal); E78.5 Hyperlipidemia, unspecified; N28.1 Cyst of kidney, acquired | CPT/HCPCS: 99212 ==

== ENCOUNTER 2024-10-27 11:19 | Outpatient (REF) | payer OTHER, SELFPAY ==
[2024-10-27 11:53] LABS: Appearance Urine Clear; Color Urine Yellow; Glucose Urine UA Negative (Negative); Leukocyte Esterase Urine Trace (Negative); Nitrite Urine Negative (Negative); PH 5.5 (5.0-9.0); UMIC TRIGGER UA YES; Urine Blood Negative (Negative); Urine Ketones Negative (Negative); Urine Protein Negative (Neg-Trace)
[2024-10-27 11:57] LABS: Bacteria Urine None Seen (None Seen); Hyaline Casts Urine 0-2 /LPF (0-2); RBC Urine 0-2 /HPF (0-2); Squamous Epithelial Cell Urine 0-2 /HPF (0-2); WBC Urine 0-5 /HPF (0-5)
[2024-10-27 12:10] LABS: Anion Gap 13 (12-20); Blood Urea Nitrogen 15 mg/dL (9-16); Calcium 9.8 mg/dL (8.4-10.2); Carbon Dioxide 30 mmol/L (22-29); Chloride 99 mmol/L (96-108); Estimated Glomerular Filt Rate 50; Potassium 3.5 mmol/L (3.3-5.1); Sodium 138 mmol/L (135-145)
== END 2024-10-27 11:20 | disposition home or self-care (01) ==
LOC: HO.LAB 11:19
PROVIDERS: PCP Internal Medicine; Visit Provider Internal Medicine Nephrology
DX: N28.1 Cyst of kidney, acquired (principal); N17.9 Acute kidney failure, unspecified; I10 Essential (primary) hypertension
CPT/HCPCS: 36415; 80051; 81001; 82310; 82565; 84520

== ENCOUNTER 2024-12-03 08:42 | Outpatient (REF) | payer OTHER, SELFPAY | END 2024-12-03 08:43 | disposition home or self-care (01) | LOC: HO.MAMMO 08:42 | PROVIDERS: PCP Internal Medicine; Visit Provider Internal Medicine | DX: Z12.31 Encounter for screening mammogram for malignant neoplasm of breast (principal) | CPT/HCPCS: 77063; 77067 ==

== ENCOUNTER 2025-06-23 08:59 | Outpatient (AMB) | payer OTHER, SELFPAY ==
[2025-06-23 09:09] VITALS: BP 124/80; PULSE 72; RESP 16; TEMP 36.6; O2SAT 97; BMI 40.2
--- NOTE | 2025-06-23 09:09 | A.OFFPC_ITS ---
Vital Signs 06/23/25 09:09 Height 5 ft 3 in Weight 227 lb BMI 40.2 BP 124/80 Blood Pressure Location Lt brachial Position Sitting Respiration 16 Pulse 72 Pulse Source Pulse Oximeter Temp 97.8 F Temp Source Oral Pulse Oximetry (%) 97 Oxygen Delivery Method Room Air Intake Visit Reasons: 6 month follow up/med f/u Intake Note: Pt is here today for her 6mo. f/u Allergies hydrochlorothiazide Allergy (Unknown, Verified 06/26/25 23:49) shortness of breath/ palpitation Medication List - Last Reconciled 06/26/25 by Lisa Dalton MD chlorthalidone 12.5 mg (1/2 x 25 mg) PO DAILY 90 days cholecalciferol (vitamin D3) 25 mcg PO DAILY duloxetine 30 mg PO DAILY ferrous fumarate 324 mg PO DAILY fluticasone propionate 50 mcg/actuation (Flonase Allergy Relief) 1 spray intranasal DAILY PRN loratadine (Claritin) 10 mg PO DAILY magnesium 250 mg PO DAILY omeprazole 40 mg PO DAILY propranolol ER 120 mg PO DAILY rosuvastatin 5 mg PO Q2D 3 months sertraline 75 mg (1.5 x 50 mg) PO DAILY Tobacco use date assessed: 06/23/25 Dental Screening Dental Screen Date: 06/23/25 Did you have a dental visit in the last 12 months?: No Did you have a dental problem in the last 6 months where you did not have access to dental care?: No Was dental information given to patient?: Yes HPI 6 month follow up/med f/u HPI Details 54-year-old lady with history attention anemia, depression, migraines GERD, dyslipidemia and peripheral neuropathy, here today for follow-up. Has been under lot of stress lately, taking care of her daughter who was diagnosed at age 28 with stage III colon cancer and just recently was released from the hospital after her surgery , now receiving chemotherapy. Has been taking sertraline at 75 mg daily which has not been helping. She has chronic pain in both lower extremities accompanied by numbness of unclear etiology. This comes and goes, has been seen by [facility] neurology, and has been tried on gabapentin which was too sedating and switched to Lyrica which also was not helping. Her EMGs all came back within normal limits and MRI of cervical thoracic spine were both unremarkable. MS was ruled out and symptoms are more indicative now of fibromyalgia. She is currently taking rosuvastatin 5 mg 1 tablet every other day for treatment of her elevated lipids, and takes omeprazole 40 mg daily for her chronic gastroesophageal reflux. Her blood pressure stable controlled on current treatment [facility] Medical History (Updated 06/27/25 @ 00:00 by Lisa Dalton MD) Environmental allergies Numbness and tingling Peripheral neuropathy Depression Anemia Lumbar radiculopathy Varicose veins of left lower extremity with pain Migraine GERD (gastroesophageal reflux disease) Dyslipidemia Essential hypertension Paresthesia and pain of left extremity Surgical History Hx of colonoscopy Hx of cholecystectomy Hx of knee surgery H/O wrist surgery History of hysterectomy Family History Father Diabetes Mother Parkinson disease Daughter No problems noted. Brother No problems noted. Sister No problems noted. Social History Housing: House Patient Tobacco Use Status: Never used Tobacco e-Cigarette/Vaping Use: Never Used service: No Current occupational status: employed Cognitive needs: No Hearing needs: No Vision needs: Yes Questionnaire PHQ-9 Over the last 2 weeks, how often have you been bothered by any of the following problems? 1. Little interest or pleasure in doing things: not at all 2. Feeling down, depressed, or hopeless: not at all 3. Trouble falling or staying asleep, or sleeping too much: several days 4. Feeling tired or having little energy: not at all 5. Poor appetite or overeating: not at all 6. Feeling bad about yourself - or that you are a failure or have let yourself or your family down: not at all 7. Trouble concentrating on things, such as reading the newspaper or watching television: not at all 8. Moving or speaking so slowly that other people could have noticed. Or the opposite - being so fidgety or restless that you have been moving around a lot more than usual: not at all 9. Thoughts that you would be better off or of hurting yourself in some way: not at all Total score: 1 Depression Screening Interpretation: Negative Depression Screening Done: Yes 91368 - PHQ-9 Billing: Yes Source: Developed by Drs. Joshua Glass, Shamika Lee, Travon Bacon and colleagues, with an educational keesha from [employer]. Thrive Questionnaire Date Thrive assessed: 02/17/25 I am a: Patient What is your living situation today?: I have a steady place to live Within the past 12 months, did the food you bought not last and you didn't have the money to get more?: Never true Within the past 12 months, did you worry whether your food would run out before you got money to buy more?: Never true Do you have trouble paying for medicines?: No Do you have trouble getting transportation to medical appointments?: No Do you have trouble paying your heating and electricity bill?: No Do you have trouble taking care of your child, family member or friend?: No Do you have trouble with day-to-day activities such as bathing, preparing meals, shopping, managing finances, etc.?: No Are you currently unemployed and looking for a job?: No Are you interested in more education?: No Please select the resources that you would like help with: None Currently or been in a relationship where the following occur: No concerns reported THRIVE Score: 0 ROSA-7 AMB Questionnaire ROSA-7 Date ROSA - 7 assessed: 08/18/24 Source: Developed by Drs. Joshua Glass, Travon Cui and colleagues, with an educational keesha from [employer]. Review of Systems Const All systems reviewed & are unremarkable except as noted in HPI and below Neuro Reports Sensory deficit (Neuro) (in toes of both feet) Psych Reports no additional complaints Aller/Immun Reports seasonal rhinorrhea Physical exam (Primary Care) Vital Signs: Last Vital Signs Temp 97.8 F 06/23/25 09:09 Pulse 72 06/23/25 09:09 Resp 16 06/23/25 09:09 BP 124/80 06/23/25 09:09 Pulse Ox 97 06/23/25 09:09 Oxygen Delivery Method Room Air 06/23/25 09:09 BMI result Body Mass Index 40.2 Tobacco/Smoking Status: Tobacco use Status Tobacco use date assessed 06/23/25 06/23/25 09:14 Patient Tobacco Use Status Never used Tobacco 06/23/25 09:14 e-Cigarette/Vaping Use Never Used 06/23/25 09:14 PHQ-9: PHQ-9 Score PHQ-9: Total score 1 06/23/25 09:50 Depression Screening Interpretation: Negative Thrive Assessment: Date of Thrive Assessment Date Thrive assessed 02/17/25 06/23/25 09:14 Currently or been in a relationship where the following occur: No concerns reported Const General: no acute distress and alert Nutritional Appearance: obese morbidly obese Orientation/consciousness: patient oriented x3 HENMT Face and sinus: Yes face symmetric Eyes General: appearance normal, both eyes and all related structures Neck Neck: Yes normal visual inspection, Yes full ROM, Yes no lymphadenopathy and Yes supple Thyroid: Thyroid normal Chest Breast/axilla palpation: normal palpation of the breasts Resp Effort & Inspection: normal respiratory effort Auscultation: clear to auscultation bilaterally Cardio Other: S1-S2 present regular rate and rhythm GI Palpation (GI): Soft to palpation, nontender, no guarding and no masses Auscultation: normal bowel sounds General: Yes no CVA tenderness and Yes deferred Back/Spine/Pelvis Back: no CVA tenderness and No back tenderness Skin General skin exam: no rashes or lesions noted Neuro General: patient oriented x3, tone normal, moves all extremities, no focal motor deficits and CN's II-XI intact bilaterally Sensory Exam: Sensory deficit (Neuro) (in toes of both feet) Extrem General: Yes full ROM, Yes no joint enlargement, Yes no pedal edema, Yes no calf tenderness and Yes normal gait Psych Appearance: grossly normal and well kempt Mental Status: mental status grossly normal Speech and movement: Normal speech and movement present Affect: normal affect Coding Level of Care Code Est Pt Level 4 (37134) Diagnoses Essential hypertension I10 Dyslipidemia E78.5 History of anemia Z86.2 Chronic pain disorder G89.4 Environmental allergies Z91.09 Additional Codes PHQ-9 - 18264 - PHQ-9 Billing: Yes ([id number]) Assessment & Plan Assessment & Plan (1) Essential hypertension: Code(s): I10 - Essential (primary) hypertension Category: Medical Plan: Blood pressure at goal of less than 130/80. Continue with current medication. Reinforced importance of following a low sodium diet, getting regular exercise, and lowering stress levels. Fasting basic metabolic panel ordered today. (2) Dyslipidemia: Code(s): E78.5 - Hyperlipidemia, unspecified Category: Medical Plan: Currently on rosuvastatin 5 mg taken 1 tablet every other day, fasting lipid panel ordered today. (3) History of anemia: Code(s): Z86.2 - Personal history of diseases of the blood and blood-forming organs and certain disorders involving the immune mechanism Plan: Repeat CBC ordered. Currently taking ferrous fumarate 324 mg daily (4) Chronic pain disorder: Code(s): G89.4 - Chronic pain syndrome Plan: Will taper off sertraline and start duloxetine 30 mg once a day.. See her back for follow-up via telehealth in 4 weeks (5) Environmental allergies: Code(s): Z91.09 - Other allergy status, other than to drugs and biological substances Category: Medical Plan: Refill sent for fluticasone propionate 50 mcg per actuation instill into each nostril once a day Orders: Orders Complete Blood Count Auto Diff 06/23/25 E78.5 - Hyperlipidemia, unspecified, I10 - Essential (primary) hypertension, Z86.2 - Personal history of diseases of the blood and blood-forming organs and certain disorders involving the immune mechanism Basic Metabolic Panel Fasting 06/23/25 E78.5 - Hyperlipidemia, unspecified, I10 - Essential (primary) hypertension, Z86.2 - Personal history of diseases of the blood and blood-forming organs and certain disorders involving the immune mechanism Aspartate Amino Transferase 06/23/25 E78.5 - Hyperlipidemia, unspecified, I10 - Essential (primary) hypertension, Z86.2 - Personal history of diseases of the blood and blood-forming organs and certain disorders involving the immune mechanism Lipid Panel 06/23/25 E78.5 - Hyperlipidemia, unspecified, I10 - Essential (primary) hypertension, Z86.2 - Personal history of diseases of the blood and blood-forming organs and certain disorders involving the immune mechanism IRON PROFILE 06/23/25 E78.5 - Hyperlipidemia, unspecified, I10 - Essential (primary) hypertension, Z86.2 - Personal history of diseases of the blood and blood-forming organs and certain disorders involving the immune mechanism Vitamin D 25-OH Total 06/23/25 E7.5 - Hyperlipidemia, unspecified, I10 - Essential (primary) hypertension, Z86.2 - Personal history of diseases of the blood and blood-forming organs and certain disorders involving the immune mechanism Alanine Aminotransferase 06/23/25 E78.5 - Hyperlipidemia, unspecified, I10 - Essential (primary) hypertension, Z86.2 - Personal history of diseases of the blood and blood-forming organs and certain disorders involving the immune mechan ism Medications: New duloxetine 30 mg PO DAILY 30 caps 1RF Changed From fluticasone propionate 50 mcg/actuation (Flonase Allergy Relief) administer into each nostril 1 spray intranasal DAILY 9.9 mL 1RF To fluticasone propionate 50 mcg/actuation (Flonase Allergy Relief) administer into each nostril 1 spray intranasal DAILY PRN 9.9 mL 3RF allergy symptoms
--- OUTSIDE RECORDS SUMMARY | 2025-06-23 09:20 | XMS_ITS | Patient Health Record ---
Author Organization [facility] Address [address] [place] [address] Care Team Providers Care Partition Setter Name Role Phone Joshua Oliver Unavailable [phone] Reason For Referral No Information Plan Of Treatment No Information
== END 2025-06-23 09:50 | disposition home or self-care (01) ==
LOC: HO.HMCC 08:59
PROVIDERS: PCP Internal Medicine; Visit Provider Internal Medicine
DX: I10 Essential (primary) hypertension (principal); E78.5 Hyperlipidemia, unspecified; Z86.2 Personal history of diseases of the blood and blood-forming organs and certain disorders involving the immune mechanism; G89.4 Chronic pain syndrome; Z91.09 Other allergy status, other than to drugs and biological substances

== ENCOUNTER 2025-06-23 08:59 | Outpatient (REF) | payer OTHER, SELFPAY ==
[2025-06-23 13:20] LABS: MANUAL DIFF FLAG NO
[2025-06-23 13:27] LABS: Hematocrit 39.7 % (37.0-47.0); Hemoglobin 12.8 g/dl (12.0-16.0); Imm Gran Abs Auto 0.01 X10*3/uL (0.00-0.03); Imm Gran Pct Auto 0.2 % (0.0-0.4); Lymphocytes Absolute Auto 1.7 X10*3/uL (1.2-4.9); Mean Corpuscular HGB Conc 32.2 g/dl (31.0-35.0); Mean Corpuscular Hemoglobin 28.0 pg (27.0-33.0); Mean Corpuscular Volume 86.9 fL (80.0-98.0); NRBC Abs Auto 0.000 X10*3/uL (0.0-0.012); NRBC Pct Auto 0.0 /100WBC (0.0-0.2); Platelet Count 220 X10*3/uL (160-400); Red Blood Count 4.57 X10*6/uL (4.20-5.50); White Blood Count 6.0 X10*3/uL (4.8-10.8)
[2025-06-23 14:01] LABS: Alanine Aminotransferase 23 U/L (0-31); Anion Gap 10 (12-20); Aspartate Amino Transferase 29 U/L (5-31); Blood Urea Nitrogen 13 mg/dL (9-16); Calcium 9.2 mg/dL (8.4-10.2); Carbon Dioxide 33 mmol/L (22-29); Chloride 99 mmol/L (96-108); Cholesterol 165 mg/dL (<200); Estimated Glomerular Filt Rate 56; HDL Cholesterol 47 mg/dL (>40); Iron 51 mcg/dL (30-160); Percent Iron Saturation 23 % (15-50); Potassium 3.1 mmol/L (3.3-5.1); Sodium 139 mmol/L (135-145); Total Iron Binding Capacity 223 mcg/dL (228-428); Triglycerides 101 mg/dL (<150); Unsaturated Iron Binding 172 ug/dL
== END 2025-06-23 09:00 | disposition home or self-care (01) ==
LOC: HO.HMGCLDS 08:59
PROVIDERS: PCP Internal Medicine; Visit Provider Internal Medicine
DX: I10 Essential (primary) hypertension (principal); E78.5 Hyperlipidemia, unspecified; G89.4 Chronic pain syndrome; Z91.09 Other allergy status, other than to drugs and biological substances; Z86.2 Personal history of diseases of the blood and blood-forming organs and certain disorders involving the immune mechanism
CPT/HCPCS: 36415; 80048; 80061; 82306; 83540; 84450; 84460; 85025; 96127; 99212

== ENCOUNTER → 2025-06-27 21:52 | Outpatient (BNV) | payer OTHER, SELFPAY | PROVIDERS: Emergency Provider Emergency Medicine; PCP Internal Medicine; Visit Provider Radiology Diagnostic Radiology | DX: S52.122A Displaced fracture of head of left radius, initial encounter for closed fracture (principal) | CPT/HCPCS: 73070; 73090 ==

== ENCOUNTER 2025-06-27 21:55 | Emergency (ER) | payer OTHER, SELFPAY ==
--- NOTE | ~2025-06-27 | XR_ITS ---
CLINICAL HISTORY: pain s p fall 2 view left forearm Comparison: CR - XR ELBOW LT 2V - 06/27/25 22:51 EDT Findings: Acute impacted intra-articular radial head fracture. Remaining radius and ulna are intact without fracture. Elbow effusion. No significant arthritic changes. No radiopaque foreign body. IMPRESSION: Acute impacted radial head fracture with joint effusion. This document has been electronically signed by: Bhanu Price MD on 06/27/2025 23:04:29
--- NOTE | ~2025-06-27 | XR_ITS ---
CLINICAL HISTORY: pain s p fall 2 view left elbow Comparison: None provided Findings: Acute impacted radial head fracture. There is intra-articular involvement laterally. No significant loss of joint space, osteophytes, or erosions. Elbow effusion. No radiopaque foreign body. IMPRESSION: Acute intra-articular impacted radial head fracture with joint effusion. This document has been electronically signed by: Bhanu Price MD on 06/27/2025 23:03:59
[2025-06-27 22:06] VITALS: BP 151/78; PULSE 71; RESP 20; TEMP 37; O2SAT 100; BMI 39.8
[2025-06-28 00:11] VITALS: BP 125/78; PULSE 72; RESP 12; TEMP 36.7; O2SAT 97
--- NOTE | 2025-06-28 00:13 | ED.FALL ---
HPI - Fall General Chief Complaint: Fall Stated Complaint: left arm and elbow injury (fall) Time Seen by Provider: 06/28/25 00:12 History of Present Illness ED Provider: John Melton MD HPI Narrative: 54-year-old female with fallen outstretched hand low mechanism no LOC she did hit gravel and has a small lip laceration. Related Data Home Medications ?Medication ?Instructions ?Recorded ?Confirmed loratadine 10 mg tablet (Claritin) 10 mg PO DAILY 08/29/20 02/18/24 cholecalciferol (vitamin D3) 25 25 mcg PO DAILY 12/07/20 02/18/24 mcg (1,000 unit) capsule magnesium 250 mg tablet 250 mg PO DAILY 12/07/20 02/18/24 Previous Rx's ?Medication ?Instructions ?Recorded ferrous fumarate 324 mg (106 mg 324 mg PO DAILY #90 tabs 09/15/24 iron) tablet sertraline 50 mg tablet 75 mg (1.5 x 50 mg) PO DAILY #135 01/13/25 caps propranolol 120 mg capsule,24 120 mg PO DAILY #90 caps 03/23/25 hr,extended release rosuvastatin 5 mg tablet 5 mg PO Q2D 3 months #45 tabs 03/30/25 chlorthalidone 25 mg tablet 12.5 mg (1/2 x 25 mg) PO DAILY 90 04/07/25 days #45 tabs omeprazole 40 mg capsule,delayed 40 mg PO DAILY #90 caps 05/08/25 release duloxetine 30 mg capsule,delayed 30 mg PO DAILY #30 caps 06/23/25 release fluticasone propionate 50 1 spray intranasal DAILY PRN 06/23/25 mcg/actuation nasal allergy symptoms #9.9 mL spray,suspension (Flonase Allergy Relief) potassium chloride 10 mEq 10 meq PO DAILY #10 tabs 06/27/25 tablet,extended release (Klor-Con) Allergies Allergy/AdvReac Type Severity Reaction Status Date / Time hydrochlorothiazide Allergy Unknown shortness Verified 06/27/25 22:12 of breath/ palpitation [facility] Past Medical History Medical History (Updated 06/28/25 @ 00:16 by John Melton MD) Environmental allergies Numbness and tingling Peripheral neuropathy Depression Anemia Lumbar radiculopathy Varicose veins of left lower extremity with pain Migraine GERD (gastroesophageal reflux disease) Dyslipidemia Essential hypertension Paresthesia and pain of left extremity Surgical History Hx of colonoscopy Hx of cholecystectomy Hx of knee surgery H/O wrist surgery History of hysterectomy Family History Family History Father Diabetes Mother Parkinson disease Daughter No problems noted. Brother No problems noted. Sister No problems noted. Social History Social History Housing: House Patient Tobacco Use Status: Never used Tobacco Smoked in Last 30 Days: No e-Cigarette/Vaping Use: Never Used Use of substances other than those prescribed or required for medical reasons: No Advance Directives: No Advance Directives Information Provided: Yes service: No Current occupational status: employed Cognitive needs: No Hearing needs: No Vision needs: Yes Physical Exam Exam: Exam: EXAM: Gen: Alert, awake, well appearing, well hydrated. Head: Atraumatic Eyes: Anicteric, Normal conjunctiva. ENT: Moist mucosa, no pallor. ? Neck: Supple. Skin: ?No observable rash or bruising on exposed or examined skin Respiratory: Breathing comfortably, No distress.Clear to auscultation bilaterally, symmetric chest expansion, No wheeze, rales, ronchi. Cardiovascular: Regular rate and rhythm. No murmurs or rub. Well perfused periphery, warm extremities. No edema. ? Abdominal: No focal tenderness. Soft, no objective distension. No palpable masses or obvious organomegaly. ?No guarding, no rebound tenderness or other peritoneal findings. : No flank tenderness. Neuro: Alert. Gross movement of all extremities intact. ? Psych: Calm. Cooperative. MSK: No grossly visible deformity. Left upper extremity: Vital signs: See flowsheet Vital Signs: Vital Signs: Last Vital Signs Temp 98.1 F 06/28/25 00:42 Pulse 72 06/28/25 00:42 Resp 12 06/28/25 00:42 BP 125/78 06/28/25 00:42 Pulse Ox 97 06/28/25 00:42 O2 Del Method Room Air 06/28/25 00:42 BMI result Body Mass Index 39.8 Medications Administered Discontinued Medications Generic Name Dose Route Start Last Admin Trade Name Freq PRN Reason Stop Dose Admin Ibuprofen 800 mg 06/28/25 00:12 06/28/25 00:17 Ibuprofen 800 Mg Tablet PO 06/28/25 00:13 800 mg ONCE ONE Administration Oxycodone HCl 5 mg 06/28/25 00:12 06/28/25 00:18 Oxycodone Hcl Immed Release 5 Mg Tablet PO 06/28/25 00:13 5 mg ONCE ONE Administration Medical Decision Making Medical Decision Making MDM Narrative: Medical Decision Makin-year-old female with nonsyncopal fall on outstretched hand left side. No head strike LOC or suggestion of head neck truncal or other extremity injury other than the left forearm where she has pain particularly in the elbow. She has some limited range of motion flexion-extension supination pronation tender at the elbow lateral epicondyle region. X-ray shows impacted radial head fracture. Small joint effusion. Testing Interpreted Independently: Elbow x-ray reve joint effusion als a radial head fracture Radiology or Lab testing Results Reviewed: Not Applicable Consults: Not Applicable Independent Historians/External Chart Reviews: Not Applicable Social Determinants of Health Impacting MDM/Planning: Not Applicable Discharge Plan Discharge Clinical Impression: Closed fracture of radial head Patient Disposition: Home, Self-Care Additional Instructions: DISCHARGE DIAGNOSES: Fracture of the radial head, nonoperative. Immobilized. HISTORY OF PRESENTATION: Fallen outstretche with forearm pain EMERGENCY DEPARTMENT COURSE,TESTS, TREATMENTS: While in the ED today x-ray showed a impacted radial head fracture with a small elbow effusion you were placed in a sling. DISCHARGE MEDICATIONS: ?[We have made no changes to your regular medication regimen] FOLLOW-UP: ?Call your primary or general physician soon as possible to discuss your symptoms, your ED visit and to discuss follow up plans Call orthopedics for follow up typically this is managed nonoperatively but you would benefit from a consultation with them INSTRUCTIONS ?& RETURN PRECAUTIONS: If any symptoms change first call your primary physician, if it is after-hours your primary doctors office should have a provider box person you can speak with. If the symptoms are severe or very concerning to you then call 911 or return to the ED. Ibuprofen Tylenol ice keep the extremity elevated. Take your arm out of the sling several times per day to range it including lifting it and rotating it at the shoulder John Melton MD Emergency Physician [facility] Prescriptions: No Action ferrous fumarate 324 mg (106 mg iron) tablet 324 mg PO DAILY Qty: 90 1RF sertraline 50 mg tablet 75 mg PO DAILY Qty: 135 1RF propranolol 120 mg capsule,extended release 24hr 120 mg PO DAILY Qty: 90 1RF rosuvastatin 5 mg tablet 5 mg PO Q2D 90 Days Qty: 45 1RF chlorthalidone 25 mg tablet 12.5 mg PO DAILY 90 Days Qty: 45 3RF omeprazole 40 mg capsule,delayed release(DR/EC) 40 mg PO DAILY Qty: 90 1RF potassium chloride [Klor-Con 10] 10 mEq tablet extended release 10 meq PO DAILY Qty: 10 0RF magnesium 250 mg tablet 250 mg PO DAILY cholecalciferol (vitamin D3) 25 mcg (1,000 unit) capsule 25 mcg PO DAILY loratadine [Claritin] 10 mg tablet 10 mg PO DAILY duloxetine 30 mg capsule,delayed release(DR/EC) 30 mg PO DAILY Qty: 30 1RF fluticasone propionate [Flonase Allergy Relief] 50 mcg/actuation spray,suspension 1 spray intranasal DAILY PRN (Reason: allergy symptoms) Qty: 9.9 3RF Rx Instructions: administer into each nostril Referrals: [facility] [Provider Group] Interventions: ED Discharge Assessment Last Done: 06/28/25 00:42 Discharge Date/Time: 06/28/25 00:49 Print Language: Syriac
[2025-06-28] MEDS: oxyCODONE HCl Immed Release 5 MG TABLET PO (00:18)
--- NOTE | 2025-06-28 00:19 | PC.NURSE ---
pt medicated per mar.
[2025-06-28 00:42] VITALS: BP 125/78; PULSE 72; RESP 12; TEMP 36.7; O2SAT 97
--- NOTE | 2025-06-28 00:45 | PC.NURSE ---
Sling applied, reviewed discharge instructions with pt. pt verbalized understanding, no sign of distress. positive cms to left arm. Pt was medicated for pain management.
== END 2025-06-28 00:49 | disposition home or self-care (01) ==
PROVIDERS: Emergency Provider Emergency Medicine; PCP Internal Medicine
DX: S52.122A Displaced fracture of head of left radius, initial encounter for closed fracture (principal); S01.511A Laceration without foreign body of lip, initial encounter; W01.0XXA Fall on same level from slipping, tripping and stumbling without subsequent striking against object, initial encounter; Y93.89 Activity, other specified; Y92.9 Unspecified place or not applicable; Y99.9 Unspecified external cause status
CPT/HCPCS: 73070; 73090; 99284

== ENCOUNTER 2025-07-06 10:25 | Outpatient (REF) | payer OTHER, SELFPAY ==
--- OUTSIDE RECORDS SUMMARY | 2025-07-06 11:40 | XMS_ITS | Patient Health Record ---
Author Organization [facility] Address [address] [place] [address] Care Team Providers Care Medical Assistant Ob Gyn Name Role Phone Joshua Oliver Unavailable [phone] Reason For Referral No Information Plan Of Treatment No Information
[2025-07-06 12:20] LABS: Potassium 3.5 mmol/L (3.3-5.1)
== END 2025-07-06 10:26 | disposition home or self-care (01) ==
LOC: HO.LAB 10:25
PROVIDERS: PCP Internal Medicine; Visit Provider Internal Medicine
DX: E87.6 Hypokalemia (principal)
CPT/HCPCS: 36415; 84132

== ENCOUNTER 2025-07-11 08:36 | Outpatient (AMB) | payer OTHER, SELFPAY ==
--- NOTE | 2025-07-11 08:38 | A.OFFVIS_ITS ---
Vital Signs 07/11/25 08:57 Height 5 ft 3 in Weight 224 lb BMI 39.7 Handedness Right Intake Visit Reasons: FC/ED FU: FX of the radial head, left DOI 06/27/25 Intake Note: Angela is a 54 year old right hand dominant female who presents today with her daughter for an ER follow up of left radial head fracture, DOI 06/27/25. Patient presented to [facility] ER status post fall on an outstretched arm. X-rays were obtained and she placed in a sling. Patient reports she was at her nephew's house and when she was getting ready to leave it was dark out. She didn't notice that there was a fourth stair and she miss the step and fell forward. Patient is unsure how she fell. She is having throbbing and sharp pain at the moment. She mentions that she has been working but it is difficult. 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 Allergies hydrochlorothiazide Allergy (Unknown, Verified 07/11/25 08:56) shortness of breath/ palpitation Medication List - Last Reconciled 07/11/25 by Conrado Daniels PA-C chlorthalidone 12.5 mg (1/2 x 25 mg) PO DAILY 90 days cholecalciferol (vitamin D3) 25 mcg PO DAILY duloxetine 30 mg PO DAILY ferrous fumarate 324 mg PO DAILY fluticasone propionate 50 mcg/actuation (Flonase Allergy Relief) 1 spray intranasal DAILY PRN loratadine (Claritin) 10 mg PO DAILY magnesium 250 mg PO DAILY omeprazole 40 mg PO DAILY oxycodone 5 mg PO BID PRN potassium chloride ER (Klor-Con) 10 mEq PO DAILY propranolol ER 120 mg PO DAILY rosuvastatin 5 mg PO Q2D 3 months sertraline 75 mg (1.5 x 50 mg) PO DAILY HPI HPI FC/ED FU: FX of the radial head, left DOI 06/27/25: Details: 84-year-old female presents to the office today for an injury she sustained to her left elbow on 06/27/2025. She states she was walking down the stairs when she missed the last step and fell landing directly on the left side. She was seen in the emergency department where she had x-rays which demonstrated a nondisplaced left radial head fracture. She was placed in a sling and referred to our office for ortho eval. She states she has been in the sling for the last 2 weeks. [facility] Medical History (Updated 07/11/25 @ 09:11 by Conrado Daniels PA-C) Radial head fracture, open Environmental allergies Numbness and tingling Peripheral neuropathy Depression Anemia Lumbar radiculopathy Varicose veins of left lower extremity with pain Migraine GERD (gastroesophageal reflux disease) Dyslipidemia Essential hypertension Paresthesia and pain of left extremity Surgical History Hx of colonoscopy Hx of cholecystectomy Hx of knee surgery H/O wrist surgery History of hysterectomy Family History Father Diabetes Mother Parkinson disease Daughter No problems noted. Brother No problems noted. Sister No problems noted. Social History (Updated 07/11/25 @ 08:56 by Lanre Phan) Housing: House Alcohol intake: current Alcohol intake frequency: holidays/special occasions only Patient Tobacco Use Status: Never used Tobacco e-Cigarette/Vaping Use: Never Used service: No Current occupational status: employed Cognitive needs: No Hearing needs: No Vision needs: Yes Review of Systems Const Reports as per HPI Physical Exam Vital Signs: BMI result Body Mass Index 39.7 Const General: cooperative, healthy appearing, comfortable and no acute distress Orientation/consciousness: patient oriented x3 HEENT Head: Yes normal to inspection and Yes atraumatic Ears: hearing grossly normal bilaterally Eyes General: appearance normal, both eyes and all related structures Neck Neck: Yes normal visual inspection and Yes no lymphadenopathy Resp Effort & Inspection: normal respiratory effort and able to speak in complete sentences Cardio Peripheral pulses: Peripheral pulses 2+ throughout Neuro General: patient oriented x3 Extrem Other: Left elbow skin intact, no open wounds. Mild tenderness over the radial head. No pain over the olecranon. No difficulty with flexion or extension, mild discomfort with supination / pronation. No pain along the distal radius or proximal humerus. Sensation and peripheral pulses present. Psych Appearance: well kempt Office Procedures AMB Fracture Care Fracture Billing Code: Fracture Billing Code Results Reviewed Results Reviewed: X-rays of the left elbow obtained in the office today and reviewed by me show a nondisplaced radial head fracture with stable alignment compared to previous films. Assessment & Plan Assessment & Plan (1) Left radial head fracture: Code(s): S52.122A - Displaced fracture of head of left radius, initial encounter for closed fracture Category: Medical Plan: I discussed with the patient and her daughter in the office today the extent of her injury. This will be treated nonoperatively with occupational therapy and modifications of activity. I encouraged her to work on gentle range of motion however no forceful supination pronation and no lifting more than [address] an order for occupational therapy to work on gentle range of motion. She was given the information to contact and make an appointment. I will see her back in 4 weeks with x-rays, sooner if needed. Orders: Orders XR elbow LT min 3V Today M25.522 - Pain in left elbow OT Evaluation and Treatment Today S52.122A - Displaced fracture of head of left radius, initial encounter for closed fracture Coding Level of Care Code New Pt Level 3 (97681) Complex EM visit Add On G2211 Diagnoses Left radial head fracture S52.122A CPT Codes Fracture Care - Fracture Billing Code: Fracture Billing Code ([id number])
[2025-07-11 08:57] VITALS: BMI 39.7
--- OUTSIDE RECORDS SUMMARY | 2025-07-11 09:03 | XMS_ITS | Patient Health Record ---
Author Organization [facility] Address [address] [place] [address] Care Team Providers Care Accounting Manager Controller Name Role Phone Joshua Oliver Unavailable [phone] Reason For Referral No Information Plan Of Treatment No Information
== END 2025-07-11 09:21 | disposition home or self-care (01) ==
LOC: HO.HOS 08:37
PROVIDERS: PCP Internal Medicine; Visit Provider Physician Assistant
DX: S52.122A Displaced fracture of head of left radius, initial encounter for closed fracture (principal)
CPT/HCPCS: 99203

== ENCOUNTER → 2025-07-11 08:39 | Outpatient (BNV) | payer OTHER, SELFPAY | PROVIDERS: Visit Provider Radiology Diagnostic Radiology | DX: M25.522 Pain in left elbow (principal) | CPT/HCPCS: 73080 ==

== ENCOUNTER 2025-07-11 11:29 | Outpatient (REF) | payer OTHER, SELFPAY ==
--- NOTE | ~2025-07-11 | XR_ITS ---
EXAMINATION: XR ELBOW, LEFT CLINICAL INFORMATION: M25.522 - Pain in left elbow COMPARISON: 06/27/2025. TECHNIQUE: AP, lateral, and oblique views of the left elbow. FINDINGS: Redemonstration of mildly impacted radial head/neck fracture with intra-articular involvement. There is approximately 1 mm of intra-articular step-off. No gross evidence of healing at this time. No additional or new fracture. There is anatomical alignment grossly. Joint spaces preserved. There is a joint effusion. XR/XR elbow LT min 3V IMPRESSION: No significant change in acute intra-articular mildly impacted radial head fracture. Joint effusion present. Electronically signed by: Tano Suh MD 07/11/2025 09:19 AM EDT
--- OUTSIDE RECORDS SUMMARY | 2025-07-12 12:26 | XMS_ITS | Patient Health Record ---
Author Organization [facility] Address [address] [place] [address] Care Team Providers Care Operating System Designer Name Role Phone Joshua Oliver Unavailable [phone] Reason For Referral No Information Plan Of Treatment No Information
== END 2025-07-11 11:30 | disposition home or self-care (01) ==
LOC: HO.HOSX 11:29
PROVIDERS: Visit Provider Physician Assistant
DX: S52.125A Nondisplaced fracture of head of left radius, initial encounter for closed fracture (principal); W19.XXXA Unspecified fall, initial encounter; M25.522 Pain in left elbow
CPT/HCPCS: 73080; 99202

== ENCOUNTER 2025-07-22 08:28 | Outpatient (AMB) | payer OTHER, SELFPAY ==
--- NOTE | 2025-07-22 08:26 | MHC.PC.OV ---
Intake Visit Reasons: 4wk follow up Allergies hydrochlorothiazide Allergy (Unknown, Verified 07/22/25 08:52) shortness of breath/ palpitation Medication List - Last Reconciled 07/22/25 by Lisa Dalton MD chlorthalidone 12.5 mg (1/2 x 25 mg) PO DAILY 90 days cholecalciferol (vitamin D3) 25 mcg PO DAILY duloxetine 30 mg PO DAILY fluticasone propionate 50 mcg/actuation (Flonase Allergy Relief) 1 spray intranasal DAILY PRN loratadine (Claritin) 10 mg PO DAILY magnesium 250 mg PO DAILY omeprazole 40 mg PO DAILY potassium chloride ER (Klor-Con) 10 mEq PO DAILY propranolol ER 120 mg PO DAILY rosuvastatin 5 mg PO Q2D 3 months sertraline 75 mg (1.5 x 50 mg) PO DAILY Tobacco use date assessed: 07/22/25 Dental Screening Dental Screen Date: 06/23/25 HPI 4wk follow up HPI Details - The patient is a 54-year-old female with recent history of radial head fracture after fall, here today for follow-up on her anxiety disorde and neuropathy. - The patient started duloxetine on June 23 and experienced dizziness and nausea initially, which gradually improved over time, and states that it has been helping with the burning pain in her extremities - On June 27, she fell and fractured her radial head, seen by Orthopedics, who advised limited use of the arm, no lifting more than 2 lb and to start physical therapy-she reports improvement in arm mobility but still cannot fully extend it. - Anxiety disorder was identified during counseling sessions, with the patient experiencing significant anxiety , most of which came taking care of her daughter was recently finished treatment for breast cancer - The patient is on sertraline and propranolol, with adjustments made to the timing of medication intake to manage symptoms better. [facility] Medical History (Updated 07/22/25 @ 08:57 by Lisa Dalton MD) Chronic pain syndrome Anxiety with depression Environmental allergies Numbness and tingling Peripheral neuropathy Anemia Lumbar radiculopathy Varicose veins of left lower extremity with pain Migraine GERD (gastroesophageal reflux disease) Dyslipidemia Essential hypertension Paresthesia and pain of left extremity Surgical History Hx of colonoscopy Hx of cholecystectomy Hx of knee surgery H/O wrist surgery History of hysterectomy Family History Father Diabetes Mother Parkinson disease Daughter No problems noted. Brother No problems noted. Sister No problems noted. Social History Housing: House Alcohol intake: current Alcohol intake frequency: holidays/special occasions only Patient Tobacco Use Status: Never used Tobacco e-Cigarette/Vaping Use: Never Used service: No Current occupational status: employed Cognitive needs: No Hearing needs: No Vision needs: Yes Questionnaire Thrive Questionnaire Date Thrive assessed: 02/17/25 I am a: Patient What is your living situation today?: I have a steady place to live Within the past 12 months, did the food you bought not last and you didn't have the money to get more?: Never true Within the past 12 months, did you worry whether your food would run out before you got money to buy more?: Never true Do you have trouble paying for medicines?: No Do you have trouble getting transportation to medical appointments?: No Do you have trouble paying your heating and electricity bill?: No Do you have trouble taking care of your child, family member or friend?: No Do you have trouble with day-to-day activities such as bathing, preparing meals, shopping, managing finances, etc.?: No Are you currently unemployed and looking for a job?: No Are you interested in more education?: No Please select the resources that you would like help with: None Currently or been in a relationship where the following occur: No concerns reported THRIVE Score: 0 AUDIT C Alcohol Use Questionnaire (AUDIT-C) 1. How often do you have a drink containing alcohol?: Monthly or less 2. How many drinks containing alcohol do you have on a typical day when you are drinking?: 1 or 2 3. How often do you have six or more drinks on one occasion?: Never Total Score: 1 ROSA-7 AMB Questionnaire ROSA-7 Date ROSA - 7 assessed: 07/22/25 Feeling nervous, anxious, or on edge: 0 = Not at all Not being able to stop or control worryin = Not at all Worrying too much about different things: 1 = Several days Trouble relaxin = Not at all Being so restless that it is hard to sit still: 0 = Not at all Becoming easily annoyed or irritable: 0 = Not at all Feeling afraid as if something awful might happen: 0 = Not at all Total ROSA-7 score (0-4 normal; 5-9 mild; 10-14 moderate; 15-21 severe): 1 Source: Developed by Drs. Joshua Glass, Shamika Lee, Travon Bacon and colleagues, with an educational keesha from [employer]. ROSA-7 Assessment Billing ROSA-7 Assessment Tool: ROSA-7 Assessment 47797 Review of Systems Const All systems reviewed & are unremarkable except as noted in HPI and below Aller/Immun Reports seasonal rhinorrhea Physical exam (Primary Care) Tobacco/Smoking Status: Tobacco use Status Tobacco use date assessed 07/22/25 07/22/25 08:28 Patient Tobacco Use Status Never used Tobacco 07/22/25 08:28 e-Cigarette/Vaping Use Never Used 07/22/25 08:28 Thrive Assessment: Date of Thrive Assessment Date Thrive assessed 02/17/25 07/22/25 08:28 Currently or been in a relationship where the following occur: No concerns reported Telehealth Telehealth Telehealth Platform: [facility] Location of provider rendering services: practice address Location of patient: address on file Patient Identification confirmed using: Name, : Yes Telehealth method: video Patient verbally consented to treatment: Yes Patient verbally consented to billing insurance company: Yes Patient informed of any privacy concerns related to visit: Yes Minutes spent on Phone/Video with Pt.: 20 Results Reviewed Results Reviewed: nu: Angela Schultz Age/Sex: 54/F : 1970 Unit#: [id number] Attend Dr: Lisa Dalton MD Re06/23/25 Status: DEP REF [facility] Disch: SPEC : [id number] CANDIDO: 06/23/25 STATUS: COMP REQ : [id number] RECD: 06/23/[address]: Lisa Dalton MD COMP: 06/23/25 ENTERED: 06/23/[address]: ORDERED: CBC Auto Diff Test Result Flag Reference WBC 6.0 4.8-10.8 X10*3/uL RBC 4.57 4.20-5.50 X10*6/uL HGB 12.8 12.0-16.0 g/dl HCT 39.7 37.0-47.0 % MCV 86.9 80.0-98.0 fL MCH 28.0 27.0-33.0 pg MCHC 32.2 31.0-35.0 g/dl RDW 12.0 11.0-16.0 % PLT 220 160-400 X10*3/uL MPV 9.5 9.4-12.3 fL Neut Pct Auto 62.2 45-73 % ImGran Pct Auto 0.2 0.0-0.4 % Lymp Pct Auto 28.3 20-40 % [place] Pct Auto 7.2 2-11 % Eos Pct Auto 1.8 0-4 % Baso Pct Auto 0.3 0-2 % NRBC Pct Auto 0.0 0.0-0.2 /100WBC ANC Neut Abs # 3.7 2.0-8.3 x10*3/uL ImGran Abs Auto 0.01 0.00-0.03 X10*3/uL Lymph Abs Auto 1.7 1.2-4.9 X10*3/uL [place] Abs Auto 0.4 0.1-1.2 X10*3/uL Eos Abs Auto 0.1 0.0-0.4 X10*3/uL Baso Abs Auto 0.0 0.0-0.2 X10*3/uL NRBC Abs Auto 0.000 0.0-0.012 X10*3/uL RUN: 07/22/25 0832 PAGE 1 [facility] [address] [place] [id number] Meter Record Clerk: Julian Schulz M.D. Specimen Inquiry Name: Angela Schultz Age/Sex: 54/F : 1970 Unit#: [id number] Attend Dr: Lisa Dalton MD Re06/23/25 Status: DEP REF Location: [facility] Disch: SPEC : [id number] CANDIDO: 06/23/25 STATUS: COMP REQ : [id number] RECD: 06/23/25 [facility] DR: Lisa Dalton MD COMP: 06/23/25 ENTERED: 06/23/25 [facility] DR: ORDERED: Met Prof Fast, IRON PROF, AST, ALT, Lipid Panel, Vitamin D 25-OH Test Result Flag Reference Sodium 139 135-145 mmol/L Potassium 3.1 L 3.3-5.1 mmol/L CL 99 96-108 mmol/L CO2 33 H 22-29 mmol/L Gap 10 L 12-20 BUN 13 9-16 mg/dL Creat 1.03 0.5-1.4 mg/dL eGFR 56 Chronic Kidney Disease: Estimated GFR < 60 mL/min/1.73m2 Severe Kidney Disease: Estimated GFR < 15 mL/min/1.73m2 FBS 94 60-99 mg/dL CA 9.2 # 8.4-10.2 mg/dL Iron 51 30-160 mcg/dL TIBC 223 L 228-428 mcg/dL Saturation 23 15-50 % UIBC 172 ug/dL AST (GOT) 29 5-31 U/L ALT (GPT) 23 0-31 U/L Triglyceride 101 <150 mg/dL Desirable Triglyceride: less than 150 mg/dL Borderline High Triglyceride 150-199 mg/dL High Triglyceride: 200-499 mg/dL Very High Triglyceride: greater than or equal to 5OO mg/dL Cholesterol 165 <200 mg/dL Desirable Cholesterol: less than 200 mg/dL Borderline High Cholesterol: 200-239 mg/dL High Cholesterol: greater than 239 mg/dL LDL Calculated 98 <100 mg/dL Desirable LDL: less than 100 mg/dL Near Optimal/Above Optimal LDL: 110-129 mg/dL Borderline High LDL: 130-159 mg/dL High LDL: 160-189 mg/dL Very High LDL: greater than or equal to 190 mg/dL HDL 47 >40 mg/dL Desirable HDL: greater than 40 mg/dL Note: This HDL assay may give artificially low results in patients with liver disease. Vitamin D 25-OH 56.2 >30 ng/mL Health Based Reference Values* < 20 ng/mL Deficient 20-30 ng/mL Insufficient > 30 ng/mL Sufficient Laboratory Tests 07/06/25 10:33 Potassium 3.5 Coding Level of Care Code Tele Est Pt Level 4 (66954) Diagnoses Anxiety with depression F41.8 Dyslipidemia E78.5 Migraine without aura and without status migrainosus, not intractable G43.009 Intractability: not intractable Migraine type: migraine (< 15 days per month) without aura Status migrainosus presence: without status migrainosus Chronic pain syndrome G89.4 Left radial head fracture S52.122A Additional Codes ROSA-7 Assessment Billing - ROSA-7 Assessment Tool: ROSA-7 Assessment 70503 ([id number]) Assessment & Plan Assessment & Plan (1) Anxiety with depression: Code(s): F41.8 - Other specified anxiety disorders Category: Medical Plan: continued counseling and medication adjustments to optimize symptom control. The patient was advised to focus on self-care and stress reduction (2) Dyslipidemia: Code(s): E78.5 - Hyperlipidemia, unspecified Category: Medical Plan: Latest fasting lipids are within normal limits, currently with rosuvastatin 5 mg taken 1 every other day (3) Migraine: Code(s): G43.909 - Migraine, unspecified, not intractable, without status migrainosus Category: Medical Qualifiers: Intractability: not intractable Migraine type: migraine (< 15 days per month) without aura Status migrainosus presence: without status migrainosus Qualified Code(s): G43.009 - Migraine without aura, not intractable, without status migrainosus Plan: Takes propranolol ER for migraine prevention which has been helping (4) Chronic pain syndrome: Code(s): G89.4 - Chronic pain syndrome Category: Medical Plan: Doing better starting duloxetine 30 mg daily (5) Left radial head fracture: Code(s): S52.122A - Displaced fracture of head of left radius, initial encounter for closed fracture Category: Medical Plan: Currently followed by Orthopedics, advised no weight-bearing more 2 lb, has started physical therapy Medications: Refilled duloxetine 30 mg PO DAILY 30 caps 3RF
--- OUTSIDE RECORDS SUMMARY | 2025-07-22 08:52 | XMS_ITS | Patient Health Record ---
Author Organization [facility] Address [address] [place] [address] Care Team Providers Care Location And Measurement Technician Name Role Phone Joshua Oliver Unavailable [phone] Reason For Referral No Information Plan Of Treatment No Information
== END 2025-07-22 14:24 | disposition home or self-care (01) ==
LOC: HO.HMCC 08:28
PROVIDERS: PCP Internal Medicine; Visit Provider Internal Medicine
DX: F41.8 Other specified anxiety disorders (principal); E78.5 Hyperlipidemia, unspecified; G43.009 Migraine without aura, not intractable, without status migrainosus; G89.4 Chronic pain syndrome; S52.122A Displaced fracture of head of left radius, initial encounter for closed fracture

== ENCOUNTER → 2025-07-22 08:28 | Outpatient (BNVA) | payer OTHER, SELFPAY | PROVIDERS: PCP Internal Medicine; Visit Provider Internal Medicine | DX: G89.4 Chronic pain syndrome (principal); F41.8 Other specified anxiety disorders; G62.9 Polyneuropathy, unspecified; E78.5 Hyperlipidemia, unspecified; G43.009 Migraine without aura, not intractable, without status migrainosus; S52.122D Displaced fracture of head of left radius, subsequent encounter for closed fracture with routine healing; W19.XXXD Unspecified fall, subsequent encounter | CPT/HCPCS: 96127 ==

== ENCOUNTER 2025-08-01 09:00 | Outpatient (RCR) | payer OTHER, SELFPAY ==
--- NOTE | 2025-07-28 14:00 | MHC.OT.OEV ---
[facility] Office [address] [facility] [phone] F: [phone] F: [phone] Occupational Therapy Evaluation Patient Name: Angela Schultz Diagnosis: (L) radial head fx Date of Onset: 06/27/25 Date of Surgery: Attending Provider: Conrado Daniels Prescribed Treatment: MD Follow Up Appointment: History of Current Condition: Patient is a 55 y/o (R)handed female with PMHx HTN who sustained a mechanical fall from tripping going down the stairs on 06/27/25 resulting in a radial head fx. She states It's not that bad...I'm doing ok; reporting 3/10 pain at rest and 5/10 pain during movement that is dull and achy. 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 and lives with dad and daughter. PLOF (I)ADLs/IADLs. She enjoys making fake flower arrangement, cross word puzzles, reading, and is learning to gabi. 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 Sleep: Sleeping is good, keeps elbow elevated during night with herbal packs Driving: Does not drive Vision: Balance: Pain Assessment Pain Score: 5 Pain Scale Used: Numeric (0 - 10) Pain Location and Description: 3/10 pain at rest 5/10 during movement (L)elbow Dull/achy Aggravating Factors: Alleviating Factors: Not using anything currently Skin and Soft Tissue Assessment Skin and Soft Tissue: Comments: Skin intact no edema present (see measurements below) Nerve assessment Ulnar Nerve: Median Nerve: Radial Nerve: Comments: Sensory Assessment Temperature: Light Touch: Proprioception: Vibration: Comments: Edema Assessment Upper Extremity: Lower Extremity: Comments: (L)26cm forearm, upper arm 30.8cm= 56.8 (R)26.9cm forearm, upper arm 30cm= 56.9 Dexterity Assessment Dexterity: Comments: WFL Performed finger opposition Special Tests Comments: AROM(PROM) Strength Cervical Cervical Flexion: Cervical Extension: Cervical Lateral Flexion: Cervical Rotation: Comments: Shoulder Flexion: Extension: Abduction: Internal Rotation: External Rotation: Comments: Flexion: Extension: Abduction: Internal Rotation: External Rotation: Comments: Elbow Flexion: 65 Extension: 10 Pronation: WFL Supination: 76 Comments: Flexion: Extension: Pronation: Supination: Comments: Wrist Flexion: 60 Extension: 45 Ulnar Deviation: 30 Radial Deviation: 30 Comments: Flexion: Extension: Ulnar Deviation: Radial Deviation: Comments: Thumb Thumb CMC Flexion: Thumb MCP Flexion: Thumb IP Flexion: Radial Abduction: Palmar Abduction: Hartland (Kapandji 0-10): 10 Comments: Digits Index MCP: PIP: DIP: Long MCP: PIP: DIP: Ring MCP: PIP: DIP: Small MCP: PIP: DIP: Comments: WFL Gross Grasp: Lateral Pinch: Two-Point Pinch: Three-Jaw Livan: Comments: CONTRAINDICATED AT THIS TIME Patient Education Primary Language: Livestock Nutrition Territory Manager Required: Yes Current Knowledge: Understands information with skills for self-management Teaching Method: Verbal Education Needs Identified on Evaluation: ADL's Exercise Pain Safety How did patient/family demonstrate learning? Patient verbalizes Barriers to Learning: None Readiness for Learning: Accepting Who was educated? Patient Comments: Plan of Care Assessment: Based on initial OT evaluation patient is 4 weeks s/p radial head fx presenting with impaired ROM, impaired strength, pain and impaired performance during self care tasks. During evaluation patient stated that she is using her affect UE to lift items and bags during work despite prior education. Patient was educated to adhere to weight limit per MD orders. Due to the documented impairments it is recommended that receive skilled OT if order for her to achieve her PLOF of (I). Thank you for your referral. STG Duration: 2 weeks Short Term Goals: Patient will report a 3/10 pain in elbow Patient will increase elbow flexion to 75* Patient will increase elbow extension to 5* Patient will increase elbow supination to 80* LTG Duration: 4 weeks Longterm Goals: Patient will report 1/10 pain in elbow Patient will have elbow flexion WFL Patient will have extension WFL Patient will have supination WFL Patient will be (I) with HEP Frequency and Duration: The patient will be seen 2x a week for 4 weeks Treatment Plan: Therapeutic Exercise Therapeutic Activity Home Exercise Program Splinting Neuro Re-ed Patient Education Desensitization/Sensory Re-ed Edema Control ADL Training Ultrasound NMES Iontophoresis Paraffin Fluidotherapy MHP Cold Packs Joint Mobilization Soft Tissue Mobilization Kinesiotaping Skilled OT eval and treat Electronically Signed By: Bozena Etienne OTPriscilla/Jayleen, CLT Reviewed/agree with student documentation: Therapist: Please sign and return to therapist, Thank you for your referral.
--- NOTE | 2025-08-11 13:48 | MHC.OT.DC ---
[facility] Office [address] [phone] F: [phone] F: [phone] Occupational Therapy Discharge Note Patient Name: Angela Schultz Provider: Conrado Daniels Diagnosis: (L) radial head fx Date of Surgery: Date of Evaluation: 07/28/25 Date of Discharge: Treatments to Date: 2 Cancellations to Date: No Shows to Date: Discharge Status: Patient Elected to Stop Discharge Summary: Patient had 2 OT sessions, unfortunately patient called and canceled all her appointments stating the doctor does not believe she needs more treatments. Thank you for your referral Electronically Signed By: JACLYN Sofia/Jayleen, CLT Reviewed/agree with student documentation: Therapist: Please Sign and return to therapist, thank you for your referral.
== END 2025-08-11 13:49 | disposition home or self-care (01) ==
LOC: HO.OT 09:00
PROVIDERS: PCP Internal Medicine; Visit Provider Physician Assistant
DX: S52.122D Displaced fracture of head of left radius, subsequent encounter for closed fracture with routine healing (principal)
CPT/HCPCS: 97110; 97140; 97165

== ENCOUNTER 2025-08-02 08:54 | Outpatient (REF) | payer OTHER, SELFPAY ==
--- OUTSIDE RECORDS SUMMARY | 2025-08-02 10:59 | XMS_ITS | Patient Health Record ---
Author Organization [facility] Address [address] [place] [address] Care Team Providers Care Etiquette Teacher Name Role Phone Joshua Oliver Unavailable [phone] Reason For Referral No Information Plan Of Treatment No Information
[2025-08-02 11:36] LABS: Appearance Urine Clear; Glucose Urine UA Negative (Negative); PH 6.5 (5.0-9.0); Specific Gravity - Urine 1.020 (1.005-1.025); UMIC TRIGGER UA YES
[2025-08-02 11:59] LABS: Anion Gap 13 (12-20); Blood Urea Nitrogen 14 mg/dL (9-16); Calcium 9.1 mg/dL (8.4-10.2); Carbon Dioxide 31 mmol/L (22-29); Chloride 98 mmol/L (96-108); Estimated Glomerular Filt Rate 52; Potassium 2.9 mmol/L (3.3-5.1); Sodium 139 mmol/L (135-145)
== END 2025-08-02 08:55 | disposition home or self-care (01) ==
LOC: HO.LAB 08:54
PROVIDERS: PCP Internal Medicine; Visit Provider Internal Medicine Nephrology
DX: I10 Essential (primary) hypertension (principal); N28.1 Cyst of kidney, acquired; N17.9 Acute kidney failure, unspecified
CPT/HCPCS: 36415; 80051; 81001; 82310; 82565; 84520

== ENCOUNTER 2025-08-03 10:19 | Outpatient (AMB) | payer OTHER, SELFPAY ==
--- NOTE | 2025-08-03 10:32 | HO.NEPHOV_ITS ---
Vital Signs 08/03/25 10:35 Height 5 ft 3 in Weight 229 lb 8 oz BMI 40.6 BP 120/80 Blood Pressure Location Rt brachial Position Sitting Pulse 67 Pulse Source Pulse Oximeter Pulse Oximetry (%) 98 Oxygen Delivery Method Room Air Intake Visit Reasons: R/S 06/29/25-M Cover Inspector Required: No Accompanied by: Father Allergies hydrochlorothiazide Allergy (Unknown, Verified 08/03/25 10:35) shortness of breath/ palpitation HPI Comments Details: Angela has hypertension and had been on medications. She has dyslipidemia and is on statins. She has been having persistent numbness and tingling in left lower extremity for which she has undergone MRI of lumbar spine, CT angiogram of lower extremities as well as EMG. Her CTA aorta showed no significant arterial stenosis. She is not a diabetic. She has no edema, hematuria, SOB, PND, orthopnea, orthostasis, epistaxis, photosensitivity, new skin rashes, new bone/back pain, excess NSAID intake. She has had no recent antibiotics, sore throat or sinusitis. She denied any H/O CAD, CVA, CHF, BRIANA. Her serum creatinine had improved to baseline. Her K has been low and has been initiated on K supplementation [facility] Medical History (Updated 08/03/25 @ 10:55 by Patrick Paz MD) Chronic pain syndrome Anxiety with depression Environmental allergies Numbness and tingling Peripheral neuropathy Anemia Lumbar radiculopathy Varicose veins of left lower extremity with pain Migraine GERD (gastroesophageal reflux disease) Dyslipidemia Essential hypertension Paresthesia and pain of left extremity Surgical History Hx of colonoscopy Hx of cholecystectomy Hx of knee surgery H/O wrist surgery History of hysterectomy Family History Father Diabetes Mother Parkinson disease Daughter No problems noted. Brother No problems noted. Sister No problems noted. Social History Housing: House Alcohol intake: current Alcohol intake frequency: holidays/special occasions only Patient Tobacco Use Status: Never used Tobacco e-Cigarette/Vaping Use: Never Used service: No Current occupational status: employed Cognitive needs: No Hearing needs: No Vision needs: Yes Review of Systems Const All systems reviewed & are unremarkable except as noted in HPI and below Physical Exam Vital Signs: Last Vital Signs Pulse 67 08/03/25 10:35 BP 120/80 08/03/25 10:35 Pulse Ox 98 08/03/25 10:35 Oxygen Delivery Method Room Air 08/03/25 10:35 BMI result Body Mass Index 40.6 Const General: comfortable and no acute distress Orientation/consciousness: patient oriented x3 HEENT Head: Yes normocephalic Mouth: Normal oral and palatal mucosa present Eyes EOM: EOMs intact bilaterally Neck Neck: Yes supple Resp Auscultation: clear to auscultation bilaterally Cardio Jugular venous distension: no JVD Rate: regular rate GI Palpation (GI): Soft to palpation Auscultation: normal bowel sounds General: Yes no CVA tenderness Back/Spine/Pelvis Back: no CVA tenderness Skin General skin exam: no rashes or lesions noted Neuro General: patient oriented x3 and moves all extremities Extrem General: Yes no pedal edema Results Reviewed Nephrology Results: Sodium, (135-145) 139 mmol/L 08/02/25 Potassium, (3.3-5.1) 2.9 mmol/L L* 08/02/25 Chloride, (96-108) 98 mmol/L 08/02/25 Carbon Dioxide, (22-29) 31 mmol/L H 08/02/25 BUN, (9-16) 14 mg/dL 08/02/25 Creatinine, (0.5-1.4) 1.09 mg/dL 08/02/25 Calcium, (8.4-10.2) 9.1 mg/dL 08/02/25 Urine Protein, (Neg-Trace) Negative mg/dL 08/02/25 Renal US 03/11/24 Assessment & Plan Assessment & Plan (1) Essential hypertension: Code(s): I10 - Essential (primary) hypertension Category: Medical (2) Renal cyst: Code(s): N28.1 - Cyst of kidney, acquired Category: Medical (3) Hypokalemia: Code(s): E87.6 - Hypokalemia Category: Medical Plan Her FADY has resolved. Her urine output is good. Extensive work up was negative. Her Doppler of renal arteries showed miidly elevated velocity in the bilateral renal arteries which could represent less than 60% stenosis. She also had a right renal cyst which needs a F/U scan later. She is asked her to maintain good hydration. She was encouraged to stay away from NSAID's. She is on Chlorthalidone 12.5 mg daily to maintain BP. She is on K replacement. She may need losartan in the future . F/U labs ordered. All questions answered. Orders: Orders Electrolytes 6 Months E87.6 - Hypokalemia, I10 - Essential (primary) hypertension, N28.1 - Cyst of kidney, acquired Blood Urea Nitrogen 3 Months E87.6 - Hypokalemia, I10 - Essential (primary) hypertension Electrolytes 6 Weeks E87.6 - Hypokalemia, I10 - Essential (primary) hypertension Blood Urea Nitrogen 6 Weeks E87.6 - Hypokalemia, I10 - Essential (primary) hypertension Creatinine 6 Months E87.6 - Hypokalemia, I10 - Essential (primary) hypertension, N28.1 - Cyst of kidney, acquired Blood Urea Nitrogen 6 Months E87.6 - Hypokalemia, I10 - Essential (primary) hypertension, N28.1 - Cyst of kidney, acquired Calcium 6 Months E87.6 - Hypokalemia, I10 - Essential (primary) hypertension, N28.1 - Cyst of kidney, acquired Creatinine 3 Months E87.6 - Hypokalemia, I10 - Essential (primary) hypertension Electrolytes 3 Months E87.6 - Hypokalemia, I10 - Essential (primary) hypertension Creatinine 6 Weeks E87.6 - Hypokalemia, I10 - Essential (primary) hypertension Medications: Changed From potassium chloride ER (Klor-Con) 10 mEq PO DAILY 10 tabs 0RF To potassium chloride ER 20 mEq PO DAILY 10 tabs 0RF 10 days Coding Level of Care Code Est Pt Level 4 (75271) Diagnoses Essential hypertension I10 Renal cyst N28.1 Hypokalemia E87.6
[2025-08-03 10:35] VITALS: BP 120/80; PULSE 67; O2SAT 98; BMI 40.6
--- OUTSIDE RECORDS SUMMARY | 2025-08-03 12:33 | XMS_ITS | Patient Health Record ---
Author Organization [facility] Address [address] [place] [address] Care Team Providers Care Director Of Infection Control Name Role Phone Joshua Oliver Unavailable [phone] Reason For Referral No Information Plan Of Treatment No Information
== END 2025-08-03 11:05 | disposition home or self-care (01) ==
LOC: HO.HKA 10:19
PROVIDERS: PCP Internal Medicine; Visit Provider Internal Medicine Nephrology
DX: I10 Essential (primary) hypertension (principal); N28.1 Cyst of kidney, acquired; E87.6 Hypokalemia
CPT/HCPCS: 99214

== ENCOUNTER → 2025-08-03 10:19 | Outpatient (BNVA) | payer OTHER, SELFPAY | PROVIDERS: PCP Internal Medicine; Visit Provider Internal Medicine Nephrology | DX: I10 Essential (primary) hypertension (principal); N28.1 Cyst of kidney, acquired; E87.6 Hypokalemia | CPT/HCPCS: 99212 ==

== ENCOUNTER 2025-08-11 08:41 | Outpatient (AMB) | payer OTHER, SELFPAY ==
--- NOTE | 2025-08-11 08:46 | A.OFFVIS_ITS ---
Vital Signs 08/11/25 08:47 Height 5 ft 3 in Weight 229 lb BMI 40.6 Intake Visit Reasons: f/u left radial head fx w xrays Intake Note: Angela is a 55 year old right hand dominant female who presents today for a follow up of left radial head fracture, DOI 06/27/25. At her last visit she was referred to occupational therapy to work on gentle range of motion. She will follow up in 4 weeks with x-rays. Patient reports she is doing okay, she feels that she does not need therapy, stating performs same exercises that she is already performing. Complaints of soreness at the end of day, however finds comfort with icing. Allergies hydrochlorothiazide Allergy (Unknown, Verified 08/11/25 08:47) shortness of breath/ palpitation HPI HPI f/u left radial head fx w xrays: Details: 55-year-old female returns to the office today for a follow-up left radial head fracture. Patient is doing well overall. She is working on exercises at home to improve her range of motion. She has no concerns today. [facility] Medical History (Updated 08/03/25 @ 10:55 by Patrick Paz MD) Chronic pain syndrome Anxiety with depression Environmental allergies Numbness and tingling Peripheral neuropathy Anemia Lumbar radiculopathy Varicose veins of left lower extremity with pain Migraine GERD (gastroesophageal reflux disease) Dyslipidemia Essential hypertension Paresthesia and pain of left extremity Surgical History Hx of colonoscopy Hx of cholecystectomy Hx of knee surgery H/O wrist surgery History of hysterectomy Family History Father Diabetes Mother Parkinson disease Daughter No problems noted. Brother No problems noted. Sister No problems noted. Social History Housing: House Alcohol intake: current Alcohol intake frequency: holidays/special occasions only Patient Tobacco Use Status: Never used Tobacco e-Cigarette/Vaping Use: Never Used service: No Current occupational status: employed Cognitive needs: No Hearing needs: No Vision needs: Yes Review of Systems Const All systems reviewed & are unremarkable except as noted in HPI and below Physical Exam Vital Signs: BMI result Body Mass Index 40.6 Const General: cooperative, healthy appearing, comfortable and no acute distress Orientation/consciousness: patient oriented x3 HEENT Head: Yes normal to inspection and Yes atraumatic Ears: hearing grossly normal bilaterally Eyes General: appearance normal, both eyes and all related structures Neck Neck: Yes normal visual inspection and Yes no lymphadenopathy Resp Effort & Inspection: normal respiratory effort and able to speak in complete sentences Cardio Peripheral pulses: Peripheral pulses 2+ throughout Neuro General: patient oriented x3 Extrem Other: Left elbow skin intact, no open wounds. No tenderness over the radial head. No pain over the olecranon. No difficulty with flexion or extension, no discomfort with supination / pronation. No pain along the distal radius or proximal surya thang. Sensation and peripheral pulses present. Psych Appearance: well kempt Results Reviewed Results Reviewed: X-rays of the left elbow obtained in the office today and reviewed by me show a nondisplaced radial head fracture with stable alignment compared to previous films. Assessment & Plan Assessment & Plan (1) Left radial head fracture: Code(s): S52.122A - Displaced fracture of head of left radius, initial encounter for closed fracture Category: Medical Plan: She will continue with her [id number] exercises and slowly progress with strength. I stressed the importance of avoiding impact or contact activities for another 6 weeks. She will see me back in 6-8 weeks with new x-rays, sooner if needed. Orders: Orders XR elbow LT min 3V Today M25.522 - Pain in left elbow Coding Level of Care Code Global (27031) Diagnoses Left radial head fracture S52.122A
[2025-08-11 08:47] VITALS: BMI 40.6
--- OUTSIDE RECORDS SUMMARY | 2025-08-11 09:16 | XMS_ITS | Patient Health Record ---
Author Organization [facility] Address [address] [place] [address] Care Team Providers Care Staffing Associate Name Role Phone Joshua Oliver Unavailable [phone] Reason For Referral No Information Plan Of Treatment No Information
== END 2025-08-11 09:22 | disposition home or self-care (01) ==
LOC: HO.HOS 08:42
PROVIDERS: PCP Internal Medicine; Visit Provider Physician Assistant
DX: S52.122A Displaced fracture of head of left radius, initial encounter for closed fracture (principal)
CPT/HCPCS: 99213

== ENCOUNTER → 2025-08-11 08:45 | Outpatient (BNV) | payer OTHER, SELFPAY | PROVIDERS: Visit Provider Radiology Diagnostic Radiology | DX: S52.122D Displaced fracture of head of left radius, subsequent encounter for closed fracture with routine healing (principal) | CPT/HCPCS: 73080 ==

== ENCOUNTER 2025-08-11 11:09 | Outpatient (REF) | payer OTHER, SELFPAY ==
--- NOTE | ~2025-08-11 | XR_ITS ---
EXAMINATION: XR ELBOW, LEFT CLINICAL INFORMATION: M25.522 - Pain in left elbow COMPARISON: 07/11/2025, 06/27/2025. TECHNIQUE: AP, lateral, and oblique views of the left elbow. FINDINGS: Redemonstration of mildly impacted radial head/neck fracture with intra-articular involvement. Fracture lines are still visible but slightly more sclerotic than previously. This indicates early healing. No additional or new fracture. There is anatomical alignment grossly. Joint spaces preserved. There is an improving joint effusion. XR/XR elbow LT min 3V IMPRESSION: Early healing of intra-articular minimally impacted radial head fracture. Stable anatomical alignment. Electronically signed by: Tano Suh MD 08/11/2025 08:58 AM EDT
--- OUTSIDE RECORDS SUMMARY | 2025-08-12 12:53 | XMS_ITS | Patient Health Record ---
Author Organization [facility] Address [address] [place] [address] Care Team Providers Care Tractor Driver Name Role Phone Joshua Oliver Unavailable [phone] Reason For Referral No Information Plan Of Treatment No Information
== END 2025-08-11 11:10 | disposition home or self-care (01) ==
LOC: HO.HOSX 11:09
PROVIDERS: Visit Provider Physician Assistant
DX: S52.122D Displaced fracture of head of left radius, subsequent encounter for closed fracture with routine healing (principal); X58.XXXD Exposure to other specified factors, subsequent encounter
CPT/HCPCS: 73080; 99212

== ENCOUNTER 2025-09-12 09:16 | Outpatient (REF) | payer OTHER, SELFPAY ==
--- OUTSIDE RECORDS SUMMARY | 2025-09-12 10:11 | XMS_ITS | Patient Health Record ---
Author Organization [facility] Address [address] [place] [address] Care Team Providers Care Dry Room Attendant Name Role Phone Joshua Oliver Unavailable [phone] Reason For Referral No Information Plan Of Treatment No Information
[2025-09-12 11:17] LABS: Anion Gap 13 (12-20); Blood Urea Nitrogen 19 mg/dL (9-16); Carbon Dioxide 30 mmol/L (22-29); Chloride 100 mmol/L (96-108); Estimated Glomerular Filt Rate 48; Potassium 3.5 mmol/L (3.3-5.1); Sodium 139 mmol/L (135-145)
== END 2025-09-12 09:17 | disposition home or self-care (01) ==
LOC: HO.LAB 09:16
PROVIDERS: PCP Internal Medicine; Visit Provider Internal Medicine Nephrology
DX: I10 Essential (primary) hypertension (principal); E87.6 Hypokalemia
CPT/HCPCS: 36415; 80051; 82565; 84520

== ENCOUNTER 2025-10-07 08:10 | Outpatient (AMB) | payer OTHER, SELFPAY ==
--- OUTSIDE RECORDS SUMMARY | 2025-10-07 08:13 | XMS_ITS | Patient Health Record ---
Author Organization [facility] Address [address] [place] [address] Care Team Providers Care Slip Mixer Name Role Phone Joshua Oliver Unavailable [phone] Reason For Referral No Information Plan Of Treatment No Information
--- NOTE | 2025-10-07 08:23 | A.OFFVIS_ITS ---
Vital Signs 10/07/25 08:25 Height 5 ft 3 in Weight 229 lb BMI 40.6 Intake Visit Reasons: OV-6-8 wk f/u left radial head fx w xrays Intake Note: Angela is a 55 year old female who presents today for a follow up of left radial head fracture, DOI 06/27/25. Patient reports that she is doing well, at times she will have mild pain with over doing and with cold weather. She states yesterday feeling a popping in her elbow. Allergies hydrochlorothiazide Allergy (Unknown, Verified 08/11/25 08:47) shortness of breath/ palpitation Medication List - Last Reconciled 10/07/25 by Conrado Daniels PA-C chlorthalidone 12.5 mg (1/2 x 25 mg) PO DAILY 90 days cholecalciferol (vitamin D3) 25 mcg PO DAILY duloxetine 30 mg PO DAILY fluticasone propionate 50 mcg/actuation (Flonase Allergy Relief) 1 spray intranasal DAILY PRN loratadine (Claritin) 10 mg PO DAILY magnesium 250 mg PO DAILY omeprazole 40 mg PO DAILY potassium chloride ER 20 mEq PO DAILY 10 days propranolol ER 120 mg PO DAILY rosuvastatin 5 mg PO Q2D 3 months sertraline 75 mg (1.5 x 50 mg) PO DAILY HPI HPI OV-6-8 wk f/u left radial head fx w xrays: Details: 55-year-old female returns to the office today for a follow-up left radial head fracture date of injury 06/27/2025. The patient is doing quite well and has no pain with activities. She mentioned she did have an episode where she felt a click or a pop in her elbow but there was no pain associated with this. [facility] Medical History (Updated 10/07/25 @ 09:01 by Conrado Daniels PA-C) Chronic pain syndrome Anxiety with depression Environmental allergies Numbness and tingling Peripheral neuropathy Anemia Lumbar radiculopathy Varicose veins of left lower extremity with pain Migraine GERD (gastroesophageal reflux disease) Dyslipidemia Essential hypertension Paresthesia and pain of left extremity Surgical History Hx of colonoscopy Hx of cholecystectomy Hx of knee surgery H/O wrist surgery History of hysterectomy Family History Father Diabetes Mother Parkinson disease Daughter No problems noted. Brother No problems noted. Sister No problems noted. Social History Housing: House Alcohol intake: current Alcohol intake frequency: holidays/special occasions only Patient Tobacco Use Status: Never used Tobacco e-Cigarette/Vaping Use: Never Used service: No Current occupational status: employed Cognitive needs: No Hearing needs: No Vision needs: Yes Review of Systems Const All systems reviewed & are unremarkable except as noted in HPI and below Physical Exam Vital Signs: BMI result Body Mass Index 40.6 Const General: cooperative, healthy appearing, comfortable and no acute distress Orientation/consciousness: patient oriented x3 HEENT Head: Yes normal to inspection and Yes atraumatic Ears: hearing grossly normal bilaterally Eyes General: appearance normal, both eyes and all related structures Neck Neck: Yes normal visual inspection and Yes no lymphadenopathy Resp Effort & Inspection: normal respiratory effort and able to speak in complete sentences Cardio Peripheral pulses: Peripheral pulses 2+ throughout Neuro General: patient oriented x3 Extrem Other: Left elbow skin intact, no open wounds. No tenderness over the radial head. No pain over the olecranon. No difficulty with flexion or extension, no discomfort with supination / pronation. No pain along the distal radius or proximal humerus. Sensation and peripheral pulses present. Psych Appearance: well kempt Results Reviewed Results Reviewed: X-rays of the left elbow obtained in the office today and reviewed by me show a nondisplaced radial head fracture with stable alignment compared to previous films. Interval healing noted Assessment & Plan Assessment & Plan (1) Left radial head fracture: Code(s): S52.122A - Displaced fracture of head of left radius, initial encounter for closed fracture Category: Medical Qualifiers: Encounter type: subsequent encounter Fracture type: closed Fracture alignment: nondisplaced Fracture healing: with routine healing Qualified Code(s): S52.125D - Nondisplaced fracture of head of left radius, subsequent encounter for closed fracture with routine healing Plan: Patient will continue with activities as tolerated. If there is any concerns or questions going forward she can contact our office otherwise follow up as needed. Orders: Orders XR elbow LT min 3V Today M25.522 - Pain in left elbow Coding Level of Care Code Complex visit Add On G2211 Diagnoses Closed nondisplaced fracture of head of left radius with routine healing, subsequent encounter S52.125D Encounter type: subsequent encounter Fracture type: closed Fracture alignment: nondisplaced Fracture healing: with routine healing
[2025-10-07 08:25] VITALS: BMI 40.6
== END 2025-10-07 09:38 | disposition home or self-care (01) ==
LOC: HO.HOS 08:11
PROVIDERS: PCP Internal Medicine; Visit Provider Physician Assistant
DX: S52.125D Nondisplaced fracture of head of left radius, subsequent encounter for closed fracture with routine healing (principal)
CPT/HCPCS: 99213

== ENCOUNTER → 2025-10-07 08:13 | Outpatient (BNV) | payer OTHER, SELFPAY | PROVIDERS: Visit Provider Radiology Diagnostic Radiology | DX: S52.122D Displaced fracture of head of left radius, subsequent encounter for closed fracture with routine healing (principal) | CPT/HCPCS: 73080 ==

== ENCOUNTER 2025-10-07 08:45 | Outpatient (REF) | payer OTHER, SELFPAY ==
--- NOTE | ~2025-10-07 | XR_ITS ---
EXAMINATION: XR ELBOW, LEFT CLINICAL INFORMATION: M25.522 - Pain in left elbow COMPARISON: 08/11/2025, 07/11/2025, 06/27/2025. TECHNIQUE: AP, lateral, and oblique views of the left elbow. FINDINGS: Redemonstration of the impacted radial head/neck fracture with intra-articular involvement. Fracture lines are barely visible become even more sclerotic, indicating further healing. Stable alignment which is essentially anatomic. No additional or new fracture. Joint spaces are preserved. Joint effusion has resolved. Soft tissues appear normal. XR/XR elbow LT min 3V IMPRESSION: Continued healing of intra-articular minimally impacted radial head fracture. Stable anatomical alignment. Electronically signed by: Tano Suh MD 10/07/2025 08:26 AM YAHAIRA
--- OUTSIDE RECORDS SUMMARY | 2025-10-10 09:13 | XMS_ITS | Patient Health Record ---
Author Organization [facility] Address [address] [place] [address] Care Team Providers Care Department Specialist Name Role Phone Joshua Oliver Unavailable [phone] Reason For Referral No Information Plan Of Treatment No Information
== END 2025-10-07 08:46 | disposition home or self-care (01) ==
LOC: HO.HOSX 08:45
PROVIDERS: Visit Provider Physician Assistant
DX: S52.125D Nondisplaced fracture of head of left radius, subsequent encounter for closed fracture with routine healing (principal); X58.XXXD Exposure to other specified factors, subsequent encounter
CPT/HCPCS: 73080; 99212

== ENCOUNTER 2025-10-24 10:47 | Outpatient (AMB) | payer OTHER, SELFPAY ==
[2025-10-24 11:36] VITALS: BP 124/80; PULSE 69; RESP 16; TEMP 36.6; O2SAT 97; BMI 39.5
--- NOTE | 2025-10-24 11:36 | A.OFFPC_ITS ---
Vital Signs 10/24/25 11:36 Height 5 ft 3 in Weight 223 lb BMI 39.5 BP 124/80 Blood Pressure Location Lt brachial Position Sitting Respiration 16 Pulse 69 Pulse Source Pulse Oximeter Temp 97.8 F Temp Source Oral Pulse Oximetry (%) 97 Oxygen Delivery Method Room Air Intake Visit Reasons: 3 months f/up Intake Note: Pt is here today for her 3mo. Head Of English Required: No Allergies hydrochlorothiazide Allergy (Unknown, Verified 10/24/25 12:06) shortness of breath/ palpitation Medication List - Last Reconciled 10/24/25 by Lisa Dalton MD chlorthalidone 12.5 mg (1/2 x 25 mg) PO DAILY 90 days cholecalciferol (vitamin D3) 25 mcg PO DAILY duloxetine 30 mg PO DAILY fluticasone propionate 50 mcg/actuation (Flonase Allergy Relief) 1 spray intranasal DAILY PRN loratadine (Claritin) 10 mg PO DAILY magnesium 250 mg PO DAILY omeprazole 40 mg PO DAILY potassium chloride ER 20 mEq PO DAILY 10 days propranolol ER 120 mg PO DAILY rosuvastatin 5 mg PO Q2D 3 months sertraline 75 mg (1.5 x 50 mg) PO DAILY Tobacco use date assessed: 10/24/25 Dental Screening Dental Screen Date: 10/24/25 Did you have a dental visit in the last 12 months?: No Did you have a dental problem in the last 6 months where you did not have access to dental care?: No Was dental information given to patient?: Patient declined HPI HPI Comments History of Present Illness Details The patient is a 55 year old female presenting for follow-up and management of chronic pain, anxiety, and medication management. The patient reports a history of chronic muscle pains for years, which have not worsened with rosuvastatin. She experiences a sensation of hot liquid pouring down her legs, followed by tingling and an initial feeling of being unable to walk, particularly after being at work all day. She states that duloxetine helps some with the burning pain but does not eliminate it completely.. In June, the patient sustained a fall, resulting in a non-displaced radial head fracture, which she describes as very painful. The fall occurred after she started taking duloxetine, which caused dizziness for a few days. The patient has never had a bone density scan. The patient has been in menopause since 2009. The patient has never had a bone density scan. She is currently taking chlorthalidone, and recent labs showed her potassium is normal. She has dyslipidemia and takes rosuvastatin 5 mg every third day, denies any worsening muscle pain . Regarding her mental health, duloxetine helps some with anxiety and depression, and she is also in counseling. Her counselor is helping her manage stress and anxiety, which she feels stems from long ago. Significant family stressors include her daughter, who recently finished chemotherapy for cancer and is now being tested for lupus due to elevated liver enzymes. There is a family history of fibromyalgia and lupus in her sister, and lupus in a maternal aunt. [facility] Medical History (Updated 10/30/25 @ 22:47 by Lisa Dalton MD) Chronic pain syndrome Anxiety with depression Environmental allergies Numbness and tingling Peripheral neuropathy Anemia Lumbar radiculopathy Varicose veins of left lower extremity with pain Migraine GERD (gastroesophageal reflux disease) Dyslipidemia Essential hypertension Paresthesia and pain of left extremity Surgical History Hx of colonoscopy Hx of cholecystectomy Hx of knee surgery H/O wrist surgery History of hysterectomy Family History Father Diabetes Mother Parkinson disease Daughter No problems noted. Brother No problems noted. Sister No problems noted. Social History Housing: House Alcohol intake: current Alcohol intake frequency: holidays/special occasions only Patient Tobacco Use Status: Never used Tobacco e-Cigarette/Vaping Use: Never Used service: No Current occupational status: employed Cognitive needs: No Hearing needs: No Vision needs: Yes Questionnaire PHQ-9 Over the last 2 weeks, how often have you been bothered by any of the following problems? 1. Little interest or pleasure in doing things: not at all 2. Feeling down, depressed, or hopeless: not at all 3. Trouble falling or staying asleep, or sleeping too much: several days 4. Feeling tired or having little energy: not at all 5. Poor appetite or overeating: not at all 6. Feeling bad about yourself - or that you are a failure or have let yourself or your family down: not at all 7. Trouble concentrating on things, such as reading the newspaper or watching television: not at all 8. Moving or speaking so slowly that other people could have noticed. Or the opposite - being so fidgety or restless that you have been moving around a lot more than usual: not at all 9. Thoughts that you would be better off or of hurting yourself in some way: not at all Total score: 1 Source: Developed by Drs. Joshua Glass, Shamika Lee, Travon Bacon and colleagues, with an educational keesha from [email or web address]. Thrive Questionnaire Date Thrive assessed: 02/17/25 I am a: Patient What is your living situation today?: I have a steady place to live Within the past 12 months, did the food you bought not last and you didn't have the money to get more?: Never true Within the past 12 months, did you worry whether your food would run out before you got money to buy more?: Never true Do you have trouble paying for medicines?: No Do you have trouble getting transportation to medical appointments?: No Do you have trouble paying your heating and electricity bill?: No Do you have trouble taking care of your child, family member or friend?: No Do you have trouble with day-to-day activities such as bathing, preparing meals, shopping, managing finances, etc.?: No Are you currently unemployed and looking for a job?: No Are you interested in more education?: No Please select the resources that you would like help with: None Currently or been in a relationship where the following occur: No concerns reported THRIVE Score: 0 ROSA-7 AMB Questionnaire ROSA-7 Date ROSA - 7 assessed: 07/22/25 Feeling nervous, anxious, or on edge: 0 = Not at all Not being able to stop or control worryin = Not at all Worrying too much about different things: 1 = Several days Trouble relaxin = Not at all Being so restless that it is hard to sit still: 0 = Not at all Becoming easily annoyed or irritable: 0 = Not at all Feeling afraid as if something awful might happen: 0 = Not at all Total ROSA-7 score (0-4 normal; 5-9 mild; 10-14 moderate; 15-21 severe): 1 Source: Developed by Drs. Joshua Glass, Shamika Lee, Travon Bacon and colleagues, with an educational keesha from [email or web address]. ROSA-7 Assessment Billing ROSA-7 Assessment Tool: ROSA-7 Assessment 31943 Review of Systems Narrative Physical exam (Primary Care) Vital Signs: Last Vital Signs Temp 97.8 F 10/24/25 11:36 Pulse 69 10/24/25 11:36 Resp 16 10/24/25 11:36 BP 124/80 10/24/25 11:36 Pulse Ox 97 10/24/25 11:36 Oxygen Delivery Method Room Air 10/24/25 11:36 BMI result Body Mass Index 39.5 Tobacco/Smoking Status: Tobacco use Status Tobacco use date assessed 10/24/25 10/24/25 11:40 Patient Tobacco Use Status Never used Tobacco 10/24/25 11:37 e-Cigarette/Vaping Use Never Used 10/24/25 11:37 PHQ-9: PHQ-9 Score PHQ-9: Total score 1 10/24/25 12:25 Thrive Assessment: Date of Thrive Assessment Date Thrive assessed 02/17/25 10/24/25 11:37 Currently or been in a relationship where the following occur: No concerns repor lidia Narrative Coding Level of Care Code Est Pt Level 4 (59691) Diagnoses Anxiety with depression F41.8 Essential hypertension I10 Arthralgia of multiple joints M25.50 Additional Codes ROSA-7 Assessment Billing - ROSA-7 Assessment Tool: ROSA-7 Assessment 44817 ([id number]) Assessment & Plan Assessment & Plan (1) Anxiety with depression: Code(s): F41.8 - Other specified anxiety disorders Category: Medical Plan: The patient's anxiety is partially managed with duloxetine and ongoing counseling. She has significant stressors related to her daughter's health. increased duloxetine to 30 mg twice daily, which may also improve her anxiety and sleep. (2) Essential hypertension: Code(s): I10 - Essential (primary) hypertension Category: Medical Plan: Blood pressure at goal of less than 130/80. Continue with current medication. Reinforced importance of following a low sodium diet, getting regular exercise, and lowering stress levels. (3) Arthralgia of multiple joints: Code(s): M25.50 - Pain in unspecified joint Plan: Currently on duloxetine with dose increased to 30 mg twice a day, check CRP, sed rate, rheumatoid factor, VIANEY and TSH with reflex free T4 levels Plan Patient was informed and verbally consented to the use of an ambient scribe for clinic note documentation during this visit. Orders: Orders Lipid Panel 10/24/25 F4.8 - Other specified anxiety disorders, G89.4 - Chronic pain syndrome, I10 - Essential (primary) hypertension, M25.50 - Pain in unspecified joint, M79.10 - Myalgia, unspecified site, R20.0 - Anesthesia of skin, R20.2 - Paresthesia of skin, Z84.0 - Family history of diseases of the skin and subcutaneous tissue Alanine Aminotransferase 10/24/25 F4.8 - Other specified anxiety disorders, G89.4 - Chronic pain syndrome, I10 - Essential (primary) hypertension, M25.50 - Pain in unspecified joint, M79.10 - Myalgia, unspecified site, R20.0 - Anesthesia of skin, R20.2 - Paresthesia of skin, Z84.0 - Family history of diseases of the skin and subcutaneous tissue Aspartate Amino Transferase 10/24/25 F4.8 - Other specified anxiety disorders, G89.4 - Chronic pain syndrome, I10 - Essential (primary) hypertension, M25.50 - Pain in unspecified joint, M79.10 - Myalgia, unspecified site, R20.0 - Anesthesia of skin, R20.2 - Paresthesia of skin, Z84.0 - Family history of diseases of the skin and subcutaneous tissue CRP High Sensitivity 10/24/25 F41.8 - Other specified anxiety disorders, G89.4 - Chronic pain syndrome, I10 - Essential (primary) hypertension, M25.50 - Pain in unspecified joint, M79.10 - Myalgia, unspecified site, R20.0 - Anesthesia of skin, R20.2 - Paresthesia of skin, Z84.0 - Family history of diseases of the skin and subcutaneous tissue Erythrocyte Sedimentation Rate 10/24/25 F41.8 - Other specified anxiety disorders, G89.4 - Chronic pain syndrome, I10 - Essential (primary) hypertension, M25.50 - Pain in unspecified joint, M79.10 - Myalgia, unspecified site, R20.0 - Anesthesia of skin, R20.2 - Paresthesia of skin, Z84.0 - Family history of diseases of the skin and subcutaneous tissue Rheumatoid Factor 10/24/25 F41.8 - Other specified anxiety disorders, G89.4 - Chronic pain syndrome, I10 - Essential (primary) hypertension, M25.50 - Pain in unspecified joint, M79.10 - Myalgia, unspecified site, R20.0 - Anesthesia of skin, R20.2 - Paresthesia of skin, Z84.0 - Family history of diseases of the skin and subcutaneous tissue VIANEY Reflex Titer and Pattern 10/24/25 F41.8 - Other specified anxiety disorders, G89.4 - Chronic pain syndrome, I10 - Essential (primary) hypertension, M25.50 - Pain in unspecified joint, M79.10 - Myalgia, unspecified site, R20.0 - Anesthesia of skin, R20.2 - Paresthesia of skin, Z84.0 - Family history of diseases of the skin and subcutaneous tissue TSH reflex Free T4 10/24/25 F41.8 - Other specified anxiety disorders, G89.4 - Chronic pain syndrome, I10 - Essential (primary) hypertension, M25.50 - Pain in unspecified joint, M79.10 - Myalgia, unspecified site, R20.0 - Anesthesia of skin, R20.2 - Paresthesia of skin, Z84.0 - Family history of diseases of the skin and subcutaneous tissue Vitamin D 25-OH Total 10/24/25 F41.8 - Other specified anxiety disorders, G89.4 - Chronic pain syndrome, I10 - Essential (primary) hypertension, M25.50 - Pain in unspecified joint, M79.10 - Myalgia, unspecified site, R20.0 - Anesthesia of skin, R20.2 - Paresthesia of skin, Z84.0 - Family history of diseases of the s kin and subcutaneous tissue Vitamin B12 and Folate 10/24/25 F4.8 - Other specified anxiety disorders, G89.4 - Chronic pain syndrome, I10 - Essential (primary) hypertension, M25.50 - Pain in unspecified joint, M79.10 - Myalgia, unspecified site, R20.0 - Anesthesia of skin, R20.2 - Paresthesia of skin, Z84.0 - Family history of diseases of the skin and subcutaneous tissue Medications: New duloxetine 30 mg PO BID 60 caps 5RF 30 days F41.8 - Other specified anxiety disorders
== END 2025-10-24 12:32 | disposition home or self-care (01) ==
LOC: HO.HMCC 10:48
PROVIDERS: PCP Internal Medicine; Visit Provider Internal Medicine
DX: F41.8 Other specified anxiety disorders (principal); I10 Essential (primary) hypertension; M25.50 Pain in unspecified joint

== ENCOUNTER → 2025-10-24 10:47 | Outpatient (BNVA) | payer OTHER, SELFPAY | PROVIDERS: PCP Internal Medicine; Visit Provider Internal Medicine | DX: I10 Essential (primary) hypertension (principal); F41.8 Other specified anxiety disorders; M79.18 Myalgia, other site; Z91.81 History of falling; Z87.81 Personal history of (healed) traumatic fracture; Z78.0 Asymptomatic menopausal state | CPT/HCPCS: 96127; 99212 ==